=== PATIENT | female | born 1980 | race Caucasian/White ===

== ENCOUNTER 2020-07-01 10:29 | Emergency (ER) | payer SELFPAY ==
[2020-07-01 10:37] VITALS: BP 141/93; PULSE 78; RESP 18; TEMP 36.7; O2SAT 100; BMI 32.8
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
[2020-07-01 11:11] LABS: Amphetamines Screen Urine Negative (Negative); Barbiturates Screen Urine Negative (Negative); Benzodiazepines Screen Urine Negative (Negative); Cocaine Screen Urine Negative (Negative); Opiate Screen Urine Negative (Negative); PCP Screen Urine Negative (Negative); THC Screen Urine Negative (Negative)
[2020-07-01 11:18] VITALS: BP 138/89; PULSE 83; RESP 16; O2SAT 97
== END 2020-07-01 11:18 | disposition home or self-care (01) ==
PROVIDERS: Emergency Provider Emergency Medicine
DX: Z03.89 Encounter for observation for other suspected diseases and conditions ruled out (principal)
CPT/HCPCS: 12345; 80306; 99282

== ENCOUNTER 2021-01-15 08:19 | Outpatient (CLI) | payer SELFPAY ==
--- NOTE | 2021-01-15 08:30 | US_ITS ---
WS: [id number] Complete ABDOMINAL ULTRASOUND HISTORY: ABDOMINAL PAIN COMPARISON: None available. Liver: 17.2 cm in length. Slightly enlarged liver with coarse echotexture. No mass or bile duct dilat ation. Gallbladder: Prior cholecystectomy. Pancreas: Normal size and echogenicity. CBD: 0.6 cm. Right kidney: 10.8 cm x 6.8 cm x 5.5 cm. No mass, cortical thickening or hydronephrosis. Left kidney: 11.5 cm x 5.1 cm x 4.7 cm. No mass, cortical thickening or hydronephrosis. Spleen: Top normal size spleen. Abdominal aorta and IVC are within normal limits. No ascites. US/US abdomen complete* [id number] IMPRESSION: 1. Status post cholecystectomy. 2. Mild hepatic steatosis and hepatomegaly. 3. Normal size spleen.
== END 2021-01-15 08:20 | disposition home or self-care (01) ==
LOC: RAD 08:28
PROVIDERS: PCP Internal Medicine; Visit Provider Internal Medicine
DX: R10.9 Unspecified abdominal pain (principal); Z90.49 Acquired absence of other specified parts of digestive tract; K76.0 Fatty (change of) liver, not elsewhere classified; R16.0 Hepatomegaly, not elsewhere classified
CPT/HCPCS: 76700

== ENCOUNTER 2021-01-25 09:28 | Outpatient (CLI) | payer OTHER, SELFPAY ==
--- NOTE | 2021-01-25 09:34 | MM_ITS ---
WS: [id number] DIAGNOSTIC BILATERAL DIGITAL MAMMOGRAM WITH CAD RIGHT breast ultrasound, limited HISTORY: BREAST ABNORMAL FINDINGS, MULTIPLE BREAST NODULES COMPARISON: None available. TECHNIQUE: Bilateral craniocaudad, mediolateral oblique, and mediolateral views are submitted. Spot c ompression RIGHT CC. Computer aided detection utilized. Breast composition: The breasts are heterogeneously dense, which may obscure small masses. Asymmetry in the lateral RIGHT breast at a middle depth seen only on the CC projection persists on spot rha deandra. This area measures 15 mm. Ultrasound to follow. Otherwise no suspicious mass or nodule or disto rtion. RIGHT breast ultrasound. No abnormality noted within the RIGHT breast. RIGHT breast is imaged from 1-5 and 8-12. There are a f ew fibroglandular nodules and densities. No suspicious mass or shadowing. MM/[place] [id number] IMPRESSION: BI-RADS: 2-Benign FOLLOW UP: 1 Year Follow-up
== END 2021-01-25 09:29 | disposition home or self-care (01) ==
PROVIDERS: PCP Internal Medicine; Visit Provider Family Medicine
DX: N64.59 Other signs and symptoms in breast (principal); N63.0 Unspecified lump in unspecified breast
CPT/HCPCS: 76642; 77066

== ENCOUNTER 2021-03-08 13:10 | Outpatient (CLI) | payer SELFPAY ==
--- NOTE | 2021-03-08 13:15 | CT_ITS ---
WS: [id number] CT ABDOMEN PELVIS TECHNIQUE: Contrast-enhanced CT of the abdomen and pelvis with coronal and sagittal reformatted image s. CLINICAL INFORMATION: ABDOMINAL PAIN/CHRONIC GERD/CONSTIPATION COMPARISON: None. DLP: 1907.[address] scans at [facility] use at least one of these dose optimization techniques: automat ed exposure control; mA and/or kV adjustment per patient size (includes targeted exams where dose is matched to clinical indication); or iterative reconstruction. FINDINGS: Diffuse fatty infiltration of the liver. Normal portal vein and splenic vein. Prior cholecystectomy. Moderate esophageal hiatal hernia. Prior postoperative gastric sleeve. Lung bases are well aerated. N ormal spleen. Normal pancreas. Adrenal glands are normal. Normal renal parenchymal enhancement. No hy dronephrosis. Normal caliber abdominal aorta. Normal sigmoid colon. No evidence of small or large bowel obstruction. Normal caliber small bowel. No abdominal or pelvic lymphadenopathy. No inguinal lymphadenopathy. No free fluid in the abdomen or pe lvis. Prior ventral abdominal wall mesh hernia repair. No recurrent hernia. Normal lumbar spine. CT/CT abdomen pelvis w con* [id number] IMPRESSION: 1. Prior postoperative changes gastric sleeve procedure. 2. Moderate esophageal hiatal hernia. 3. Mild diffuse fatty infiltration of the liver. Prior cholecystectomy. 4. Prior ventral abdominal wall mesh hernia repair. No recurrent hernia. 5. No evidence of small or large bowel obstruction. 6. No other significant findings.
[2021-03-08 14:06] LABS: Basophils # 0.1 10^3/uL (0.0-0.1); Basophils % 1.1 %; Eosinophils # 0.3 10^3/uL (0.0-0.8); Hematocrit 43.7 % (37.0-47.0); Hemoglobin 14.4 g/dL (11.5-15.3); Lymphocytes # 2.3 10^3/uL (0.8-4.8); Lymphocytes % 27.2 %; Mean Corpuscular Volume 88.1 fL (81-99); Mean Platelet Volume 8.6 fL (7.4-10.4); Monocytes # 0.5 10^3/uL (0.2-0.9); Monocytes % 5.8 %; Neutrophils # 5.14 10^3/uL (1.8-7.7); Neutrophils % 61.7 %; Nucleated Red Blood Cells % 0 %; Platelet Count 321 10^3/cmm (130-400); Red Blood Count 4.96 10^6/uL (4.1-5.3); Red Cell Distribution Width 13.6 % (12.1-15.1); White Blood Count 8.3 10^3/uL (4.0-10.0)
[2021-03-08 14:28] LABS: Alanine Aminotransferase 9 U/L (0-33); Albumin Level 4.4 g/dL (3.5-5.2); Alkaline Phosphatase 78 IU/L (35-105); Aspartate Amino Transferase 12 U/L (0-32); Blood Urea Nitrogen 10 mg/dL (6-20); Calcium 9.3 mg/dL (8.5-10.5); Carbon Dioxide 25 mmol/L (22-29); Chloride 103 mmol/L (98-107); Globulin 2.8 g/dL (1.3-4.6); Glomerular Filtration Rate 135.3 mL/min (90-130); Glucose 89 mg/dL (65-115); Osmolality Calculated 283 mOsm/kg (285-295); Sodium 137 mmol/L (136-145); Total Bilirubin 0.2 mg/dL (0.15-1.2); Total Protein 7.2 g/dL (6.6-8.7)
[2021-03-08] MEDS: iohexol 300 mg/mL 50 mL Btl IV (15:27)
[2021-03-08] MEDS: iohexol 300 mg/mL 100 mL Btl IV (15:27)
== END 2021-03-08 13:11 | disposition home or self-care (01) ==
LOC: RAD 13:11
PROVIDERS: PCP Internal Medicine; Visit Provider Internal Medicine
DX: R10.9 Unspecified abdominal pain (principal); K21.9 Gastro-esophageal reflux disease without esophagitis; K59.00 Constipation, unspecified; K76.0 Fatty (change of) liver, not elsewhere classified; K44.9 Diaphragmatic hernia without obstruction or gangrene
CPT/HCPCS: 36415; 74177; 80053; 85025

== ENCOUNTER 2022-02-12 08:11 | Outpatient (CLI) | payer MEDICAID, SELFPAY ==
--- NOTE | 2022-02-12 08:23 | MM_ITS ---
WS: [id number] BILATERAL SCREENING 3D TOMOSYNTHESIS DIGITAL MAMMOGRAM WITH CAD HISTORY: SCREENING COMPARISON: 01/25/2021 and 05/31/2018 Bilateral CC and MLO views submitted. Computer aided detection analyzed. Breast composition: The breasts are heterogeneously dense, which may obscure small masses. No suspici ous masses, microcalcifications or architectural distortion. Bilateral asymmetries in the upper outer quadrant are stable. MM/[place] [id number] IMPRESSION: BI-RADS: 2-Benign FOLLOW UP: 1 Year Follow-up
== END 2022-02-12 08:12 | disposition home or self-care (01) ==
LOC: RADSHAW 08:14
PROVIDERS: PCP Internal Medicine; Visit Provider Family Medicine
DX: Z12.31 Encounter for screening mammogram for malignant neoplasm of breast (principal)
CPT/HCPCS: 77063; 77067

== ENCOUNTER → 2022-06-24 12:03 | Outpatient (BNVA) | payer MEDICAID, SELFPAY | PROVIDERS: PCP Specialist; Visit Provider Internal Medicine | DX: R00.1 Bradycardia, unspecified (principal); R07.9 Chest pain, unspecified; R06.02 Shortness of breath; I63.9 Cerebral infarction, unspecified | CPT/HCPCS: 93005; 93270; 99204 ==

== ENCOUNTER 2022-07-14 11:37 | Emergency (ER) | payer MEDICAID, SELFPAY ==
[2022-07-14 11:50] VITALS: BP 139/96; PULSE 81; RESP 18; TEMP 36.8; O2SAT 98; BMI 34.4
--- NOTE | 2022-07-14 12:13 | ED_ITS ---
HPI - Abdominal Pain General: Chief Complaint: Abdominal Pain Stated Complaint: Abd and chest pain Time Seen by Provider: 07/14/22 12:01 Source: patient Mode of arrival: ambulatory Limitations: no limitations History of Present Illness: Patient is a 42-year-old female presents to ED today with a complaint of diffuse abdominal pain. Patient tells me 3 days ago she was receiving an MRI on one of her shoulders for a possible rotator cuff injury and states during the imaging she began developing severe abdominal pain. She was told the desktop support technician went through previous scans and told her she had metal in her abdomen. Patient states previous abdominal surgeries include a cholecystectomy, hernia repair and revision, Meckel's diverticulum resection, and lysis of adhesions. She states over the past 72 hours abdominal pain has persisted. She saw her PCP Dr. Dumas today who recommended she come to the ED. Patient is not having any nausea or vomiting. She reports chronic constipation stating she only has 1-2 bowel movements a month. She is also reporting a 5 to 10 pound weight gain over the past few weeks. Denies SOB/chest pain/orthopnea/PND/LE swelling. MD elicited complaint: abdominal pain Onset (ago): day(s) Pain Consistency: constant Location: Diffuse Radiation: none Migration to: no migration Exacerbating factors: nothing Relieving factors: nothing Associated Symptoms: Reports constipation (chronic); Denies chills, dysuria, fever(s), hematochezia, hematuria, melena, nausea, syncope and vomiting Review of Systems Const: Reports: change in weight; Denies: fever(s), chills, body aches, fatigue or malaise Eyes: Denies: change in vision or blurry vision Card: Denies: chest pain, palpitations, irregular heart rhythm, edema, swelling of feet/ankles, lightheadedness, syncope, pre-syncope or dyspnea on exertion Resp: Denies: dyspnea GI: Reports: abdominal pain and constipation (chronic); Denies: nausea, vomiting, hematochezia or melena : Denies: flank pain, dysuria, oliguria or hematuria Musc: Denies: neck pain, back pain, extremity pain or joint pain Skin/Breast: Denies: rash Neuro: Denies: headache(s), numbness in extremities, weakness in extremities or sensory changes PFS ED PFSH: Medical History Anxiety Asthma CVA (cerebral vascular accident) Migraine Surgical History Status post cholecystectomy Status post gastric bypass for obesity Status post hernia repair Status post rotator cuff repair Family History Mother Headache Depression Father Stroke Hypertension Brother Depression Stroke Sister Depression Cancer Anxiety Social History Smoking and tobacco status: never smoked Alcohol intake: never Physical Exam Const: COMMON NORMALS: no acute distress, patient oriented x3, no limitations, alert and well nourished GENERAL APPEARANCE: cooperative NUTRITIONAL APPEARANCE: overweight ORIENTATION/CONSCIOUSNESS: Yes awake, Yes oriented to person, Yes oriented to place and Yes oriented to time HENMT: COMMON NORMALS: normocephalic and atraumatic HEAD & SCALP: normal to inspection, normocephalic and atraumatic Chest: COMMONS NORMALS: normal inspection of the chest and normal palpation of entire chest wall Resp: COMMON NORMALS: normal respiratory effort and clear to auscultation bilaterally AUSCULTATION: clear to auscultation bilaterally Cardio: COMMON NORMALS: regular rate and regular rhythm RATE: regular rate RHYTHM: regular rhythm GI: COMMON NORMALS: Normal to inspection, nondistended, normoactive bowel sounds present, Soft to palpation and No hepatosplenomegaly present INSPECTION: Yes normal to inspection AUSCULTATION: Yes Hypoactive bowel sounds present PALPATION: Yes Soft to palpation, Yes Tenderness to palpation present (GI) (diffusely), Yes Guarding due to palpation present (GI), No Rigid due to palpation and Yes No hepatosplenomegaly present : COMMON NORMALS: Yes no CVA tenderness BLADDER/KIDNEY EXAM: Yes no CVA tenderness Back/Pelvis: COMMON NORMALS: no CVA tenderness Extremity: COMMON NORMALS: normal to inspection, full ROM, capillary refill n ormal, no joint enlargement, no calf tenderness and no pedal edema GENERAL: Yes normal exam except as noted Neuro: OMER COMA SCALE: document GCS findings Omer coma scale eye opening: Spontaneous [place] coma scale verbal response: Orientated Omer coma scale motor response: Obey commands [place] coma scale total score: 15 COMMON NORMALS: patient oriented x3, moves all extremities, no focal motor deficits, no sensory deficits noted and gait normal SENSORIUM/ORIENTATION: Yes alert, Yes oriented to person, Yes oriented to place and Yes oriented to time Skin: COMMON NORMALS: no rashes or lesions noted GENERAL SKIN EXAM: no rashes or lesions noted Course Vital Signs: Vital signs: Vital Signs Temperature 98.2 F 07/14/22 11:50 Pulse Rate 81 07/14/22 11:50 Respiratory Rate 16 07/14/22 14:06 Blood Pressure 139/96 07/14/22 11:50 Pulse Oximetry 98 07/14/22 11:50 Oxygen Delivery Me thod 07/14/22 11:50 MDM - Abdominal Pain Medical Decision Making Patient's vital signs are normal. Her work-up today is completely unremarkable. CT scan showing no acute abnormalities. Patient states she does have a longstanding history of stomach and abdominal issues and states she has a GI team she will follow-up with for further evaluation. Return to ED precautions given. Lab Data : 07/14/22 12:10 07/14/22 12:10 Labs/Radiology: Radiology Impressions Abdomen/Pelvis CT 07/14/22 12:16 IMPRESSION: 1. No acute abdominal or pelvic abnormalities are identified. 2. Status post gastric sleeve and partial colon resection with anastomotic sutures. 3. No ascites. 4. Prior cholecystectomy and hysterectomy. 5. The appendix is not identified. Laboratory Results WBC 7.9 10^3/uL (4.0-10.0) 07/14/22 12:10 RBC 4.92 10^6/uL (4.1-5.3) 07/14/22 12:10 Hgb 14.3 g/dL (11.5-15.3) 07/14/22 12:10 Hct 43.4 % (37.0-47.0) 07/14/22 12:10 MCV 88.2 fl (81-99) 07/14/22 12:10 MCH 29.1 pg (28.0-34.0) 07/14/22 12:10 MCHC 32.9 g/dL (30.0-36.0) 07/14/22 12:10 RDW 13.5 % (12.1-15.1) 07/14/22 12:10 Plt Count 326 10^3/cmm (130-400) 07/14/22 12:10 MPV 8.5 fL (7.4-10.4) 07/14/22 12:10 Neut % (Auto) 54.9 % 07/14/22 12:10 Lymph % (Auto) 32.5 % 07/14/22 12:10 [place] % (Auto) 6.5 % 07/14/22 12:10 Eos % (Auto) 4.7 % 07/14/22 12:10 Baso % (Auto) 1.0 % 07/14/22 12:10 Neut # (Auto) 4.31 10^3/uL (1.8-7.7) 07/14/22 12:10 Lymph # (Auto) 2.6 10^3/uL (0.8-4.8) 07/14/22 12:10 [place]ink[place] # (Auto) 0.5 10^3/uL (0.2-0.9) 07/14/22 12:10 Eos # (Auto) 0.4 10^3/uL (0.0-0.8) 07/14/22 12:10 Baso # (Auto) 0.1 10^3/uL (0.0-0.1) 07/14/22 12:10 Nucleated RBC % (auto) 0 % 07/14/22 12:10 Nucleated RBCs # 0.0 /100WBC 07/14/22 12:10 Sodium 140 mmol/L (136-145) 07/14/22 12:10 Potassium 4.2 mmol/L (3.5-5.1) 07/14/22 12:10 Chloride 103 mmol/L (98-107) 07/14/22 12:10 Carbon Dioxide 27 mmol/L (22-29) 07/14/22 12:10 Anion Gap 14.2 (5-19) 07/14/22 12:10 BUN 10 mg/dL (6-20) 07/14/22 12:10 Creatinine 0.6 mg/dL (0.5-0.9) 07/14/22 12:10 GFR Calculation 108.6 mL/min (90-130) 07/14/22 12:10 Glucose 85 mg/dL (65-115) 07/14/22 12:10 Calculated Osmolality 288 mOsm/kg (285-295) 07/14/22 12:10 Lactic Acid 1.3 mmol/L (0.5-2.2) 07/14/22 12:10 Calcium 9.1 mg/dL (8.5-10.5) 07/14/22 12:10 Total Bilirubin 0.2 mg/dL (0.15-1.2) 07/14/22 12:10 AST 20 U/L (0-32) 07/14/22 12:10 ALT 16 U/L (0-33) 07/14/22 12:10 Alkaline Phosphatase 95 U/L (35-105) 07/14/22 12:10 NT-Pro-B Natriuret Pep 44 pg/mL (0-125) 07/14/22 12:10 Total Protein 7.2 g/dL (6.6-8.7) 07/14/22 12:10 Albumin 4.3 g/dL (3.5-5.2) 07/14/22 12:10 Globulin 2.9 g/dL (1.3-4.6) 07/14/22 12:10 Lipase 40 U/L (13-60) 07/14/22 12:10 HCG, Qual Negative (Negative) 07/14/22 12:10 Urine Color Yellow (Yellow) 07/14/22 12:10 Urine Appearance Clear (CLEAR) 07/14/22 12:10 Urine pH 7 (5-7) 07/14/22 12:10 Ur Specific [place] 1.010 (1.005-1.030) 07/14/22 12:10 Urine Protein Neg (Negative) 07/14/22 12:10 Urine Glucose (UA) Norm (Normal) 07/14/22 12:10 Urine Ketones Negative (Negative) 07/14/22 12:10 Urine Blood Neg (Negative) 07/14/22 12:10 Urine Nitrate Negative (Negative) 07/14/22 12:10 Urine Bilirubin Neg (Negative) 07/14/22 12:10 Urine Urobilinogen 1 mg/dL (Negative) H 07/14/22 12:10 Ur Leukocyte Esterase Negative (Negative) 07/14/22 12:10 Discharge Plan Discharge Patient Disposition: Home Clinical Impression: Abdominal pain of unknown cause Condition: Stable Prescriptions: No Action midodrine 5 mg tablet 5 mg PO TID Rx Instructions: do not give last dose of day after 6PM or within 4 hrs of bedtime ondansetron 4 mg tablet,disintegrating 4 mg PO Q8H PRN (Reason: Nausea And Vomiting) albuterol sulfate 90 mcg/actuation HFA aerosol inhaler 1 puff inhalation Q4H PRN (Reason: Shortness Of Breath) omeprazole 40 mg capsule,delayed release(DR/EC) 40 mg PO BID multivitamin Tablet 1 tab PO DAILY Advair Diskus 250-50 mcg/dose blister with device 1 inh INHALATION BID fluconazole 150 mg tablet See Rx Instructions .ROUTE .COMPLEX Rx Instructions: 150mg po every 7 days for 14 days then 150mg every 7 days for 6 months on EpiPen 2-Alexy 0.3 mg/0.3 mL Auto-Injector 0.3 mg IM Q4H PRN (Reason: Allergic Reaction) venlafaxine 225 mg tablet extended release 24hr 225 mg PO QAM Discharge Orders: Discharge ED (Routine); Ordered 07/14/22 Ordered By: Eileen Rubio Referrals: Tato Cherry MD [Primary Care Provider] - Patient Instructions: Abdominal Pain (ED) Coding Level of Care Code ED Lamination Machine Operator for Chg Fwd Exam Comprehensive
--- NOTE | 2022-07-14 12:16 | CT_ITS ---
WS: [id number] CT ABDOMEN AND PELVIS NONCONTRAST HISTORY: Diffuse abdominal pain. TECHNIQUE: Imaging performed through the abdomen and pelvis. Coronal and sagittal reformats are submi tted. All CT scans at [facility] use at least one of these dose optimization techniques: auto mated exposure control; mA and/or kV adjustment per patient size (includes targeted exams where dose is matched to clinical indication); or iterative reconstruction. DLP: 1011.19 mGy.cm COMPARISON: 03/08/2021 Lower thorax: Lung bases are clear. Heart size is normal. Small hiatal hernia. Liver: Normal size liver. No mass or bile duct dilatation. Hepatic steatosis adjacent to the gallblad michael fossa. Gallbladder: Prior cholecystectomy. Pancreas: Normal size and attenuation. Normal pancreatic duct. No pancreatitis or mass. Spleen: Normal. Adrenal glands: Normal. No mass. Right kidney: Normal size kidney with no mass or hydronephrosis. Left kidney: Normal size kidney with no mass or hydronephrosis. Aorta: Normal abdominal aorta, no aneurysm or atherosclerosis. No free fluid, intraperitoneal air or significant lymphadenopathy. GI tract: Stomach is slightly distended with oral contrast. Prior gastric sleeve procedure. No small bowel obstruction. Mildly prominent fluid distended small bowel loops in the pelvis. No obstructive p attern. The appendix is not identified. No colon obstruction. Anastomotic sutures are noted in the ce ntral abdomen. Abdominal wall: Postoperative changes along the anterior abdominal wall. No change in the position of the surgical clips within the anterior abdominal wall from prior hernia repair. Pelvis: Prior hysterectomy. Normal size ovaries. Osseous structures: Unremarkable. CT/CT abdomen pelvis wo con [id number] IMPRESSION: 1. No acute abdominal or pelvic abnormalities are identified. 2. Status post gastric sleeve and partial colon resection with anastomotic sut ures. 3. No ascites. 4. Prior cholecystectomy and hysterectomy. 5. The appendix is not identified.
[2022-07-14 12:29] LABS: Basophils # 0.1 10^3/uL (0.0-0.1); Eosinophils # 0.4 10^3/uL (0.0-0.8); Eosinophils % 4.7 %; Hematocrit 43.4 % (37.0-47.0); Hemoglobin 14.3 g/dL (11.5-15.3); Lymphocytes # 2.6 10^3/uL (0.8-4.8); Lymphocytes % 32.5 %; Mean Corpuscular HGB Conc 32.9 g/dL (30.0-36.0); Mean Corpuscular Hemoglobin 29.1 pg (28.0-34.0); Mean Corpuscular Volume 88.2 fl (81-99); Mean Platelet Volume 8.5 fL (7.4-10.4); Monocytes # 0.5 10^3/uL (0.2-0.9); Monocytes % 6.5 %; Neutrophils # 4.31 10^3/uL (1.8-7.7); Neutrophils % 54.9 %; Nucleated Red Blood Cells % 0 %; Platelet Count 326 10^3/cmm (130-400); Red Blood Count 4.92 10^6/uL (4.1-5.3); Red Cell Distribution Width 13.5 % (12.1-15.1); White Blood Count 7.9 10^3/uL (4.0-10.0)
[2022-07-14 12:41] LABS: HCG, Serum Qual Negative (Negative)
[2022-07-14 12:49] LABS: Add Urine Microscopic? NO; Charge for UA Resulting for Rev
[2022-07-14 12:52] LABS: Lactic Sepsis W/Reflex 1.3 mmol/L (0.5-2.2)
[2022-07-14 13:02] LABS: Alanine Aminotransferase 16 U/L (0-33); Albumin Level 4.3 g/dL (3.5-5.2); Alkaline Phosphatase 95 U/L (35-105); Aspartate Amino Transferase 20 U/L (0-32); Blood Urea Nitrogen 10 mg/dL (6-20); Calcium 9.1 mg/dL (8.5-10.5); Carbon Dioxide 27 mmol/L (22-29); Chloride 103 mmol/L (98-107); Globulin 2.9 g/dL (1.3-4.6); Glomerular Filtration Rate 108.6 mL/min (90-130); Glucose 85 mg/dL (65-115); Lipase 40 U/L (13-60); NT Pro B Type Natriuretic Pept 44 pg/mL (0-125); Osmolality Calculated 288 mOsm/kg (285-295); Sodium 140 mmol/L (136-145); Total Bilirubin 0.2 mg/dL (0.15-1.2); Total Protein 7.2 g/dL (6.6-8.7)
[2022-07-14 13:05] LABS: Anion Gap 14.2 (5-19); Potassium 4.2 mmol/L (3.5-5.1)
[2022-07-14 13:07] LABS: Bilirubin Urine Neg (Negative); Blood Urine Neg (Negative); Glucose Urine UA Norm (Normal); Ketones Urine Negative (Negative); Leukocyte Esterase Urine Negative (Negative); Nitrate Urine Negative (Negative); Protein Urine Neg (Negative); Urine Appearance Clear (CLEAR); Urine Color Yellow (Yellow); Urobilinogen Urine 1 mg/dL (Negative); pH Urine 7 (5-7)
--- NOTE | 2022-07-14 13:13 | PC.PHAR ---
Addendum entered by Dori Downey 07/14/22 13:19: pt states she is not taking prozac 20mg daily filled 07/04/22 and not taking lipitor 10mg filled 06/26/22 30d/s states she had a reaction to the lipitor Original Note: pt states she takes care of her own medications-pt states she uses an advair diskus 250-50 filled on 06/18/22 another rx filled on 06/25/22 for 100-50 pt states uses the 250-50-pt states she is still taking midodrine 5mg tid ext med history shows last filled 05/09/22 30d/s pt states has had filled since then and still taking-notes are made in the pharmacy comments
[2022-07-14 13:16] VITALS: RESP 14
[2022-07-14] MEDS: morphine 4 mg/mL SDV 1 mL IVP (13:16)
[2022-07-14] MEDS: ondansetron 2 mg/ML SDV 2 mL 4 MG IVP (13:16)
[2022-07-14 14:06] VITALS: RESP 16
[2022-07-14] MEDS: fentaNYL 50 mcg/mL INJ 2mL IVP (14:06)
== END 2022-07-14 15:14 | disposition home or self-care (01) ==
PROVIDERS: Emergency Provider Physician Assistant; PCP Specialist
DX: R10.9 Unspecified abdominal pain (principal); Z86.73 Personal history of transient ischemic attack (TIA), and cerebral infarction without residual deficits
CPT/HCPCS: 74176; 80053; 81003; 83605; 83690; 83880; 84703; 85025; 96374; 96375; 99285; J2270; J2405; J3010

== ENCOUNTER 2022-08-20 11:53 | Outpatient (CLI) | payer MEDICAID, SELFPAY ==
--- NOTE | 2022-08-20 | ECG_ITS ---
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 Interpretive Statements NAME OF STUDY: TREADMILL STRESS TEST INDICATION: [Chest Pain, ] EXERCISE DATA: The patient was exercised by Gio protocol. Baseline heart rate was 88 beats per minute. Baseline blood pressure was 111/86 millimeters of mercury. Target heart rate was 150 beats per minute. Maximum heart rate achieved was 162, which was 108 % of the target heart rate. Maximum blood pressure was 170/91 millimeters of mercury. Total exercise time was 9 minutes. Maximum METs achieved was 10.2. The reason for ending the test was completion of the protocol. The patient complained of shortness of breath during the stress test, which then resolved at the end of the test. ELECTROCARDIOGRAM: BASELINE: Showed sinus rhythm, normal axis, no significant ST-T changes at the baseline noted. EXERCISE: At the peak exercise level,No significant ST-T changes suggestive of ischemia noted. Had PVCs noted RECOVERY: During the recovery period, heart rate dropped appropriately. No significant ST-T changes in the recovery suggestive of ischemia noted. CONCLUSION: 1. Exercise capacity good. 2. Heart rate response was appropriate. 3. Blood pressure response was appropriate. 4. Symptoms not suggestive of ischemia. 5. Stress test did not show evidence of ischemia Electronically Signed On 08-25-2022 10:09:42 CDT by Jeronimo Cortez M.D. [id number]
[2022-08-20 12:01] VITALS: BMI 33.2
[2022-08-20 12:36] VITALS: BP 126/95; PULSE 97
== END 2022-08-20 11:54 | disposition home or self-care (01) ==
LOC: CDL 11:58
PROVIDERS: PCP Specialist; Visit Provider Internal Medicine
DX: R07.9 Chest pain, unspecified (principal)
CPT/HCPCS: 93017

== ENCOUNTER 2022-08-26 13:46 | Outpatient (CLI) | payer MEDICAID, SELFPAY ==
--- NOTE | 2022-08-26 13:30 | USCV_ITS ---
Eliana Julio Age: 42 Gender: F : 1980 Exam Date: 08/26/2022 14:25 Ordering Phys: Jeronimo Cortez M.D ([email or web address]) Technologist: Exam Location: [facility] – [place] Indication: chest pain murmur BP: 125 / 90 HR: 60 Rhythm: Sinus Technical Quality: Adequate MEASUREMENTS (Male / Female) Normal Values 2D ECHO LV Diastolic Diameter PLAX 3.2 cm 4.2 - 5.9 / 3.9 - 5.3 cm LV Systolic Diameter PLAX 2.1 cm IVS Diastolic Thickness 1.2 cm 0.6 - 1.0 / 0.6 - 0.9 cm IVS Systolic Thickness 1.5 cm LVPW Diastolic Thickness 1.3 cm 0.6 - 1.0 / 0.6 - 0.9 cm LVPW Systolic Thickness 1.3 cm LVOT Diameter 2.3 cm LV Ejection Fraction 2D Teich 63.5 % LV Ejection Fraction MOD 2C 78.5 % LV Ejection Fraction 2C AL 78.7 % LA Diameter 3.8 cm Aorta at Sinotubular Diameter 3.1 cm M-MODE Aortic Annulus Diameter 3.7 cm LA Ao Ratio MM 1.0 MV E Point Septal Separation 1.9 cm DOPPLER AV Peak Velocity 113.0 cm/s LVOT Peak Velocity 91.0 cm/s AV Area Cont Eq vti 3.8 cm squared AV Area Cont Eq pk 3.2 cm squared MV Area PHT 5.0 cm squared Mitral E to A Ratio 1.5 MV E' Velocity 37.0 cm/s Mitral E to MV E' Ratio 6.2 Mitral E to LV E' Lateral Ratio 6.6 Mitral E to LV E' Septal Ratio 5.9 TR Peak Velocity 113.8 cm/s TR Peak Gradient 5.2 mmHg TV Peak E Velocity 57.0 cm/s Right Atrial Pressure 3.0 mmHg Pulmonary Artery Systolic Pressu 8.2 mmHg PV Peak Velocity 97.0 cm/s FINDINGS Left Ventricle Left ventricle is normal in size. LV systolic function is normal with EF of 55-60%. No regional wall motion abnormalities are seen. Diastolic function is normal Right Ventricle Normal in size and function Right Atrium Normal in size Left Atrium Normal in size Mitral Valve Structurally normal mitral valve. Trace mitral regurgitation Aortic Valve Structurally normal aortic valve. No significant stenosis or regurgitation. Tricuspid Valve Trace tricuspid regurgitation. Insufficient TR jet to calculate RVSP Pulmonic Valve Not well visualized Pericardium Normal Aorta Normal in size IVC CONCLUSIONS LV systolic function is normal with EF of 55-60% Diastolic function is normal Trace mitral regurgitation Trace tricuspid regurgitation No comparison studies are available Jeronimo Cortez MD (Electronically Signed) Final Date: 27 August 2022 08:52 S
== END 2022-08-26 13:47 | disposition home or self-care (01) ==
LOC: RAD 13:47
PROVIDERS: PCP Family Medicine; Visit Provider Internal Medicine
DX: R06.02 Shortness of breath (principal); R07.9 Chest pain, unspecified; R01.1 Cardiac murmur, unspecified; I08.1 Rheumatic disorders of both mitral and tricuspid valves
CPT/HCPCS: 93306

== ENCOUNTER 2022-09-04 09:28 | Outpatient (CLI) | payer MEDICAID, SELFPAY ==
--- NOTE | 2022-09-04 10:00 | FL_ITS ---
WS: [id number] Small bowel follow-through, 09/04/2022 Clinical Data: ABDOMINAL PAIN Comparison: None. Fluoroscopy time: 0min [id number] # of spot films: 3 Findings: The preliminary film shows clips in the upper and lower abdomen. There is no bowel dilatation. No a bnormal masses are seen. The patient ingested the barium. There was a small hiatal hernia. The patien t's stomach was small, consistent with gastric sleeve surgery. The clips in the right upper quadrant are from a cholecystectomy. There are clips adjacent to the stomach. The barium passed normally throu gh the duodenal bulb into the distal duodenum. Then 15 minutes postingestion the jejunum filled. At 4 5 minutes the ileum began to fill. At 2 hours and 30 minutes the barium spilled into the cecum. The c ecum was mobile and located in the central portion of the abdomen. The ileocecal valve was normal. Sp ot imaging revealed no obstruction or narrowing of the distal ileum or at the ileocecal valve. FL/FL small bowel series* [id number] Impression: Normal small bowel follow-through.
== END 2022-09-04 09:29 | disposition home or self-care (01) ==
LOC: RAD 09:30
PROVIDERS: PCP Family Medicine; Visit Provider Surgery
DX: R10.9 Unspecified abdominal pain (principal)
CPT/HCPCS: 74250

== ENCOUNTER 2022-11-25 09:49 | Emergency (ER) | payer MEDICAID, SELFPAY ==
[2022-11-25 09:50] VITALS: BP 170/116; PULSE 108; RESP 18; TEMP 37; O2SAT 98; BMI 31.0
[2022-11-25 09:54] VITALS: BP 141/112; PULSE 114; RESP 18; TEMP 37; O2SAT 99; BMI 31.0
--- NOTE | 2022-11-25 10:14 | XRR_ITS ---
PROCEDURE INFORMATION: Exam: XR Chest Exam date and time: 11/25/2022 10:33 AM Age: 42 years old Clinical indication: Cough and dyspnea; Prior surgery; Surgery type: Ovarian, HX of ovarian cancer; Additional info: Dyspnea/cough TECHNIQUE: Imaging protocol: Radiologic exam of the chest. Views: 1 view. COMPARISON: CR FL small bowel series* [id number] 09/04/2022 10:07 AM FINDINGS: Lungs: Unremarkable. No consolidation. Pleural spaces: Unremarkable. No pleural effusion. No pneumothorax. Heart/Mediastinum: Unremarkable. No cardiomegaly. Bones/joints: There is mild scoliosis midthoracic spine convex to the patient's right otherwise osseous structures are unremarkable for age. XR/XR chest 1V portable [id number] IMPRESSION: Negative for cardiopulmonary disease.
--- NOTE | 2022-11-25 10:16 | ED_ITS ---
HPI - Abdominal Pain General: Chief Complaint: Abdominal Pain Stated Complaint: ABD Pain Time Seen by Provider: 11/25/22 09:52 Source: patient Mode of arrival: EMS History of Present Illness: 42-year-old female presents emergency room complaining of right upper quadrant abdominal pain. And right side of her head she had some dental extractions done last week she is on antibiotics for them at this time she is having some nausea and vomiting this morning she states she felt a popping sensation in her abdomen on the right side when she rolled over this morning. She also reporting a lot of sinus congestion and pain on the rig ht side. No fever sweats or chills. No vomiting or diarrhea. She was seen yesterday at the [facility] and started on gabapentin Augmentin and given hydrocodone. She previously has had a gastric bypass. MD elicited complaint: abdominal pain Pertinent past history: other (Gastric bypass hysterectomy cholecystectomy) Onset (ago): day(s) Pain Consistency: constant Location: RUQ and Other (Right mandible) Quality: aching Exacerbating factors: nothing Relieving factors: nothing Associated Symptoms: Reports nausea; Denies anorexia, belching, chills, diarrhea, dysuria, fever(s) and vomiting Review of Systems Const: Denies: fever(s), chills, body aches, change in appetite, fatigue or malaise ENMT: Reports: mouth pain; Denies: throat pain, ear or mastoid pain, nasal discharge or nasal congestion Card: Denies: chest pain, palpitations, irregular heart rhythm, edema, dyspnea on exertion or orthopnea Resp: Denies: dyspnea, productive cough or non-productive cough GI: Reports: abdominal pain and nausea; Denies: vomiting, diarrhea or belching : Denies: flank pain, difficulty voiding, dysuria, urinary frequency or urinary urgency Skin/Breast: Denies: rash or pruritus PFSH ED PFSH: Medical History Anxiety Asthma CVA (cerebral vascular accident) Migraine Surgical History Status post cholecystectomy Status post gastric bypass for obesity Status post hernia repair Status post rotator cuff repair Family History Mother Headache Depression Father Stroke Hypertension Brother Depression Stroke Sister Depression Cancer Anxiety Social History Smoking and tobacco status: never smoked Alcohol intake: never Physical Exam Const: GENERAL APPEARANCE: cooperative ORIENTATION/CONSCIOUSNESS: Yes awake, Yes oriented to person, Yes oriented to place and Yes oriented to time HENMT: COMMON NORMALS: normocephalic, atraumatic and hearing grossly normal bilaterally HEAD & SCALP: normocephalic and atraumatic Resp: COMMON NORMALS: normal respiratory effort, No retractions, No use of accessory muscles and clear to auscultation bilaterally AUSCULTATION: clear to auscultation bilaterally Cardio: COMMON NORMALS: regular rate, regular rhythm and No murmurs present (Cardio) RATE: regular rate RHYTHM: regular rhythm GI: COMMON NORMALS: Soft to palpation and No hepatosplenomegaly present AUSCULTATION: Yes normoactive bowel sounds PALPATION: Yes Soft to palpation, No Tenderness to palpation present (GI), No Guarding due to palpation present (GI) and Yes No hepatosplenomegaly present Extremity: COMMON NORMALS: normal to inspection, capillary refill normal, no clubbing, cyanosis or edema, no calf tenderness and no pedal edema Neuro: SENSORIUM/ORIENTATION: Yes oriented to person, Yes oriented to place and Yes oriented to time Skin: COMMON NORMALS: no rashes or lesions noted GENERAL SKIN EXAM: no rashes or lesions noted Course Vital Signs: Vital signs: Vital Signs Temperature 98.6 F 11/25/22 09:54 Pulse Rate 70 11/25/22 11:18 Respiratory Rate 16 11/25/22 11:18 Blood Pressure 148/104 11/25/22 11:18 Pulse Oximetry 99 11/25/22 11:18 Oxygen Delivery Me thod 11/25/22 11:18 MDM - Abdominal Pain Medical Decision Making Benign abdominal exam. Think her alk phos and white count are elevated slightly because of the recent dental extraction. She does not have an acute abdomen on exam. We will discharge patient home on the previously prescribed antibiotics and pain medication she was given. Anion gap elevated patient given fluids. Blood pressure elevated we will have her monitor blood pressure at home use amlodipine 2.5 mg if blood pressure greater than 160 systolic. Have her follow-up with her primary care doctor for recheck of blood pressure within the next week. Medical Records I reviewed the patient's medical records. Lab Data I reviewed the patient's lab results. 11/25/22 09:58 11/25/22 09:58 Labs/Radiology: Radiology Impressions Chest X-Ray 11/25/22 10:14 IMPRESSION: Negative for cardiopulmonary disease. Laboratory Results WBC 11.7 10^3/uL (4.0-10.0) H 11/25/22 09:58 RBC 5.22 10^6/uL (4.1-5.3) 11/25/22 09:58 Hgb 14.7 g/dL (11.5-15.3) 11/25/22 09:58 Hct 45.2 % (37.0-47.0) 11/25/22 09:58 MCV 86.6 fl (81-99) 11/25/22 09:58 MCH 28.2 pg (28.0-34.0) 11/25/22 09:58 MCHC 32.5 g/dL (30.0-36.0) 11/25/22 09:58 RDW 14.3 % (12.1-15.1) 11/25/22 09:58 Plt Count 535 10^3/cmm (130-400) H 11/25/22 09:58 MPV 8.9 fL (7.4-10.4) 11/25/22 09:58 Neut % (Auto) 55.6 % 11/25/22 09:58 Lymph % (Auto) 35.9 % 11/25/22 09:58 [place] % (Auto) 5.2 % 11/25/22 09:58 Eos % (Auto) 2.2 % 11/25/22 09:58 Baso % (Auto) 0.7 % 11/25/22 09:58 Neut # (Auto) 6.52 10^3/uL (1.8-7.7) 11/25/22 09:58 Lymph # (Auto) 4.2 10^3/uL (0.8-4.8) 11/25/22 09:58 [place] # (Auto) 0.6 10^3/uL (0.2-0.9) 11/25/22 09:58 Eos # (Auto) 0.3 10^3/uL (0.0-0.8) 11/25/22 09:58 Baso # (Auto) 0.1 10^3/uL (0.0-0.1) 11/25/22 09:58 Nucleated RBC % (auto) 0 % 11/25/22 09:58 Nucleated RBCs # 0.0 /100WBC 11/25/22 09:58 Sodium 142 mmol/L (136-145) 11/25/22 09:58 Potassium 3.7 mmol/L (3.5-5.1) 11/25/22 09:58 Chloride 101 mmol/L (98-107) 11/25/22 09:58 Carbon Dioxide 20 mmol/L (22-29) L 11/25/22 09:58 Anion Gap 24.7 (5-19) H 11/25/22 09:58 BUN 7 mg/dL (6-20) 11/25/22 09:58 Creatinine 0.4 mg/dL (0.5-0.9) L 11/25/22 09:58 GFR Calculation 173.4 mL/min (90-130) H 11/25/22 09:58 Glucose 124 mg/dL (65-115) H 11/25/22 09:58 Calculated Osmolality 293 mOsm/kg (285-295) 11/25/22 09:58 Calcium 9.7 mg/dL (8.5-10.5) 11/25/22 09:58 Total Bilirubin 0.4 mg/dL (0.15-1.2) 11/25/22 09:58 AST 23 U/L (0-32) 11/25/22 09:58 ALT 18 U/L (0-33) 11/25/22 09:58 Alkaline Phosphatase 122 U/L (35-105) H 11/25/22 09:58 Total Protein 8.2 g/dL (6.6-8.7) 11/25/22 09:58 Albumin 4.7 g/dL (3.5-5.2) 11/25/22 09:58 Globulin 3.5 g/dL (1.3-4.6) 11/25/22 09:58 Urine Color Yellow (Yellow) 11/25/22 10:28 Urine Appearance Hazy (CLEAR) A 11/25/22 10:28 Urine pH 5 (5-7) 11/25/22 10:28 Ur Specific [place] 1.020 (1.005-1.030) 11/25/22 10:28 Urine Protein Trace (Negative) 11/25/22 10:28 Urine Glucose (UA) Norm (Normal) 11/25/22 10:28 Urine Ketones 2+ (Negative) H 11/25/22 10:28 Urine Blood Neg (Negative) 11/25/22 10:28 Urine Nitrate Negative (Negative) 11/25/22 10:28 Urine Bilirubin 1+ (Negative) H 11/25/22 10:28 Urine Urobilinogen 4 mg/dL (Negative) H 11/25/22 10:28 Ur Leukocyte Esterase Trace (Negative) H 11/25/22 10:28 Urine RBC 0-4 /hpf (0-2) H 11/25/22 10: Urine WBC 0-4 /hpf (0-5) H 11/25/22 10:28 Ur Squamous Epith Cells 15-25 /hpf (0-5) H 11/25/22 10: Amorphous Sediment Not Reportable 11/25/22 10:28 Urine Bacteria 1+ /hpf (NONE) H 11/25/22 10:28 Urine Mucus 2+ /hpf 11/25/22 10:28 Discharge Plan Discharge Patient Disposition: Home Clinical Impression: S/P tooth extraction, Elevated blood pressure reading Condition: Stable Prescriptions: New amlodipine 2.5 mg tablet 2.5 mg PO DAILY PRN (Reason: Elevated blood pressure) Qty: 14 0RF Rx Instructions: Take if systolic blood pressure exceeds 160 ondansetron HCl 4 mg tablet 4 mg PO Q6H PRN (Reason: nausea and vomiting) Qty: 20 0RF No Action ondansetron 4 mg tablet,disintegrating 4 mg PO Q8H PRN (Reason: Nausea And Vomiting) albuterol sulfate 90 mcg/actuation HFA aerosol inhaler 1 puff inhalation Q4H PRN (Reason: Shortness Of Breath) omeprazole 40 mg capsule,delayed release(DR/EC) 40 mg PO BID diphenhydramine HCl [Benadryl] 25 mg capsule 50 mg PO BID PRN (Reason: Allergic Symptoms) multivitamin Tablet 1 tab PO DAILY fluticasone propion-salmeterol [Advair Diskus] 250-50 mcg/dose blister with device 1 inh INHALATION BID fluconazole 150 mg tablet 150 mg PO Q7D Rx Instructions: on epinephrine [EpiPen 2-Alexy] 0.3 mg/0.3 mL Auto-Injector 0.3 mg IM Q4H PRN (Reason: Allergic Reaction) venlafaxine 225 mg tablet extended release 24hr 225 mg PO QAM buspirone 5 mg tablet 5 mg PO BID gabapentin 250 mg/5 mL solution 250 mg PO Q8H Rx Instructions: for 3 days (rx filled 11/24/22) amoxicillin-pot clavulanate 400-57 mg/5 mL suspension for reconstitution 10.9 ml PO Q12H Rx Instructions: for 7 days(rx filled 11/24/22) lovastatin 20 mg tablet 20 mg PO QPM hydrocodone-acetaminophen 7.5-325 mg/15 mL solution 10 ml PO Q6H MDD 40ml PRN (Reason: Pain) Rx Instructions: rx filled 11/24/22 2d/s Tylenol Sinus Severe 5-325-200 mg Tablet 2 tab PO Q4H PRN (Reason: Sinus Symptoms) Vitamin D3 125 mcg (5,000 unit) Tablet 125 mcg PO DAILY Dulera 200-5 mcg/actuation Hfa Aerosol Inhaler 2 puff INHALATION BID Linzess 290 mcg capsule 290 mcg PO QAM Discharge Orders: Discharge ED (Routine); Ordered 11/25/22 Ordered By: Tj Lee Referrals: Marcos Dumas MD [Primary Care Provider] - Discharge Diet: Clear Liquid Discharge Activity: Increase activity as tolerated Patient Instructions: Opioid Safety, Pain Management Activity Restrictions/Additional Instructions: You were seen today for abdominal pain and facial pain. Your blood pressure was also elevated. Your abdominal exam did not show anything acute your laboratory studies were unremarkable. Recommend clear liquid diet for the next 24 to 48 hours you can use ondansetron as needed for nausea and vomiting. Would recommend to continue the oral antibiotic and pain medication you are previously prescribed. Additionally monitor blood pressure if systolic pressure (top number) greater than 160 take the amlodipine once daily. Recheck with your blood pressure at your primary care doctor's office within the next 7 to 10 days. 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
[2022-11-25 10:28] LABS: Basophils # 0.1 10^3/uL (0.0-0.1); Basophils % 0.7 %; Eosinophils # 0.3 10^3/uL (0.0-0.8); Eosinophils % 2.2 %; Hematocrit 45.2 % (37.0-47.0); Hemoglobin 14.7 g/dL (11.5-15.3); Lymphocytes # 4.2 10^3/uL (0.8-4.8); Lymphocytes % 35.9 %; Mean Corpuscular HGB Conc 32.5 g/dL (30.0-36.0); Mean Corpuscular Hemoglobin 28.2 pg (28.0-34.0); Mean Corpuscular Volume 86.6 fl (81-99); Mean Platelet Volume 8.9 fL (7.4-10.4); Monocytes # 0.6 10^3/uL (0.2-0.9); Monocytes % 5.2 %; Neutrophils # 6.52 10^3/uL (1.8-7.7); Neutrophils % 55.6 %; Nucleated Red Blood Cells % 0 %; Platelet Count 535 10^3/cmm (130-400); Red Blood Count 5.22 10^6/uL (4.1-5.3); Red Cell Distribution Width 14.3 % (12.1-15.1); White Blood Count 11.7 10^3/uL (4.0-10.0)
[2022-11-25 10:45] LABS: Alanine Aminotransferase 18 U/L (0-33); Albumin Level 4.7 g/dL (3.5-5.2); Alkaline Phosphatase 122 U/L (35-105); Anion Gap 24.7 (5-19); Aspartate Amino Transferase 23 U/L (0-32); Blood Urea Nitrogen 7 mg/dL (6-20); Calcium 9.7 mg/dL (8.5-10.5); Carbon Dioxide 20 mmol/L (22-29); Chloride 101 mmol/L (98-107); Globulin 3.5 g/dL (1.3-4.6); Glomerular Filtration Rate 173.4 mL/min (90-130); Glucose 124 mg/dL (65-115); Osmolality Calculated 293 mOsm/kg (285-295); Potassium 3.7 mmol/L (3.5-5.1); Sodium 142 mmol/L (136-145); Total Bilirubin 0.4 mg/dL (0.15-1.2); Total Protein 8.2 g/dL (6.6-8.7)
[2022-11-25] MEDS: ondansetron 2 mg/ML SDV 2 mL 4 MG IVP (10:53)
[2022-11-25 10:58] LABS: Add Urine Microscopic? YES; Bilirubin Urine 1+ (Negative); Blood Urine Neg (Negative); Glucose Urine UA Norm (Normal); Ketones Urine 2+ (Negative); Leukocyte Esterase Urine Trace (Negative); Nitrate Urine Negative (Negative); Protein Urine Trace (Negative); Urine Appearance Hazy (CLEAR); Urine Color Yellow (Yellow); Urobilinogen Urine 4 mg/dL (Negative); pH Urine 5 (5-7)
[2022-11-25 10:59] LABS: Bacteria Urine 1+ /hpf; Mucus Urine 2+ /hpf; RBC Urine 0-4 /hpf (0-2); Squamous Epithelial Cell Urine 15-25 /hpf (0-5); WBC Urine 0-4 /hpf (0-5)
[2022-11-25 11:00] LABS: Add Urine Culture? No
[2022-11-25 11:05] VITALS: RESP 14; O2SAT 97
[2022-11-25] MEDS: morphine 4 mg/mL SDV 1 mL IVP (11:05)
[2022-11-25 11:18] VITALS: BP 148/104; PULSE 70; RESP 16; O2SAT 99
[2022-11-25] MEDS: sodium chloride 0.9% 1,000 ML 999 ML IV (11:46)
== END 2022-11-25 13:59 | disposition home or self-care (01) ==
PROVIDERS: Emergency Provider Family Medicine; PCP Family Medicine
DX: R03.0 Elevated blood-pressure reading, without diagnosis of hypertension (principal); Z98.818 Other dental procedure status; Z86.73 Personal history of transient ischemic attack (TIA), and cerebral infarction without residual deficits
CPT/HCPCS: 71045; 80053; 81001; 85025; 96361; 96374; 96375; 99284; J2270; J2405; J7030

== ENCOUNTER 2022-12-30 14:06 | Outpatient (CLI) | payer MEDICAID, SELFPAY ==
--- NOTE | 2022-12-30 14:30 | USCV_ITS ---
Eliana Julio Age: 42 Gender: F : 1980 Exam Date: 12/30/2022 14:23 Ordering Phys: Jeronimo Cortez M.D ([email or web address]) Technologist: AYLIN [place] [facility] [place]: PRESYNCOPE Risk Factors: Previous Vascular Surgery: Right Brachial BP: / Left Brachial BP: / Right Left Velocity (cm/s) Spectral Plaque Velocity (cm/s) Spectral Plaque Syst/Diast Broadening Syst/Diast Broadening 114.70/24.30 Prox CCA 123.60/ 25.00 111.40/25.40 Mid CCA 115.70/ 26.30 106.90/28.70 Distal CCA 124.90/ 34.20 53.20/ 22.30 Prox ICA 48.70 / 12.20 76.70/ 26.00 Mid ICA 83.70 / 22.70 77.80/ 34.60 Distal ICA 60.70 / 17.90 133.40 ECA 109.60 0.68 ICA/CCA 0.67 Vertebral 62.40/ 20.50 cm/s 49.40/ 10.00 cm/s Subclavian 156.4 143.2 0 0 FINDINGS Comparison: none available. No significant elevation of systolic or diastolic velocities. Waveforms are normal. No significant amount of calcified plaque or intimal thickening identified. CONCLUSIONS Normal carotid doppler ultrasound. Dr. Maggie Chery DO (Electronically Signed) Final Date: 30 December 2022 16:13 S
== END 2022-12-30 14:07 | disposition home or self-care (01) ==
LOC: RAD 14:09
PROVIDERS: PCP Family Medicine; Visit Provider Internal Medicine
DX: R55 Syncope and collapse (principal)
CPT/HCPCS: 93880

== ENCOUNTER 2023-07-31 08:05 | Outpatient (CLI) | payer MEDICAID, SELFPAY ==
--- NOTE | 2023-07-31 09:13 | MM_ITS ---
WS: [id number] BILATERAL SCREENING DIGITAL TOMOSYNTHESIS MAMMOGRAM WITH CAD HISTORY: SCREENING COMPARISON: 02/12/2022, 01/25/2021 Bilateral CC and MLO views with tomosynthesis and synthetic mammography submitted. Computer aided det ection analyzed. Breast composition: The breasts are heterogeneously dense, which may obscure small masses. No suspici ous masses, microcalcifications or architectural distortion. IMPRESSION: MM/[place] [id number] BI-RADS: 1-Negative FOLLOW UP: 1 Year Follow-up
== END 2023-07-31 08:06 | disposition home or self-care (01) ==
PROVIDERS: PCP Family Medicine; Visit Provider Family Medicine
DX: Z12.31 Encounter for screening mammogram for malignant neoplasm of breast (principal)
CPT/HCPCS: 77063; 77067

== ENCOUNTER 2023-11-18 08:50 | Observation (INO) | payer MEDICAID, SELFPAY ==
[2023-11-18] VITALS (10 sets, daily range): BP systolic 118–152; BP diastolic 74–106; PULSE 91–153; RESP 18–146; TEMP 36.8–37.7; O2SAT 94–99; BMI 32.1
--- NOTE | 2023-11-18 09:13 | ECG_ITS ---
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 Measurements Intervals [place] Rate: 146 P: 65 NE: 158 QRS: -37 QRSD: 91 T: 62 QT: 350 QTc: 546 Interpretive Statements SINUS TACHYCARDIA WITH OCCASIONAL VENTRICULAR PREMATURE COMPLEXES, POSSIBLE ATRIAL FLUTTER LEFT AXIS DEVIATION [QRS AXIS < -30] PATTERN CONSISTENT WITH PULMONARY DISEASE INFERIOR MYOCARDIAL INFARCTION , PROBABLY OLD [40+ ms Q WAVE AND/OR ST/T ABNORMALITY IN II/aVF] INTERPRETATION BASED ON A DEFAULT AGE OF 40 YEARS No previous ECG available for comparison Electronically Signed On 11-18-2023 10:10:11 OBSTETRICS TECH by Jeronimo Cortez M.D. [email or web address]
--- NOTE | 2023-11-18 09:15 | W.ED.NAVMDI ---
HPI - Nausea/Vomiting/Diarrhea General: Chief complaint: Nausea/Vomiting/Diarrhea Stated complaint: Vomiting, SOB Time Seen by Provider: 11/18/23 09:05 Source: patient Mode of arrival: ambulatory History of Present Illness: 43-year-old female presents emergency room with complaints of nausea vomiting for the last week as well as some ear pain. This morning she had worsening abdominal pain and cramping and back pain. Abdominal pain is diffuse. Patient is hyperventilating and vomiting on arrival. She states she not had any hematochezia melena hematemesis or coffee-ground emesis she was seen in outside ER she was tachycardic at that time had a CT done as well as given IV fluids and ultimately was discharged home. She has had previous small bowel resection no known history of coronary disease she is not diabetic. No chronic kidney disease. No dysuria urgency or frequency or hematuria. MD elicited complaint: nausea and vomiting Associated symtoms: Denies chest pain or dysuria Review of Systems Const: Denies: fever(s) or chills Card: Denies: chest pain Resp: Denies: dyspnea GI: Denies: abdominal pain : Denies: dysuria, urinary frequency or urinary urgency Musc: Denies: neck pain or back pain Skin/Breast: Denies: rash PFSH ED PFSH: Medical History History of umbilical hernia Anxiety Asthma CVA (cerebral vascular accident) Migraine Surgical History History of surgery on arm H/O gastric sleeve History of resection of small bowel History of laparotomy History of mandibular surgery Status post cholecystectomy Status post gastric bypass for obesity Status post rotator cuff repair Status post hernia repair Family History Mother Headache Depression Father Stroke Hypertension Brother Depression Stroke Sister Depression Cancer Anxiety Social History Smoking and tobacco/nicotine status: never used tobacco/nicotine Alcohol intake: never Substance/Drug Use: never Physical Exam Const: COMMON NORMALS: no acute distress GENERAL APPEARANCE: cooperative and comfortable ORIENTATION/CONSCIOUSNESS: Yes awake, Yes oriented to person, Yes oriented to place and Yes oriented to time HENMT: COMMON NORMALS: normocephalic, atraumatic and hearing grossly normal bilaterally HEAD & SCALP: normocephalic and atraumatic Resp: COMMON NORMALS: normal respiratory effort, No retractions, No use of accessory muscles and clear to auscultation bilaterally AUSCULTATION: clear to auscultation bilaterally Cardio: COMMON NORMALS: regular rate, regular rhythm and No murmurs present (Cardio) RATE: regular rate RHYTHM: regular rhythm GI: COMMON NORMALS: Soft to palpation and No hepatosplenomegaly present AUSCULTATION: Yes normoactive bowel sounds PALPATION: Yes Soft to palpation, No Tenderness to palpation present (GI), No Guarding due to palpation present (GI) and Yes No hepatosplenomegaly present Extremity: COMMON NORMALS: normal to inspection, capillary refill normal, no clubbing, cyanosis or edema, no calf tenderness and no pedal edema Neuro: SENSORIUM/ORIENTATION: Yes oriented to person, Yes oriented to place and Yes oriented to time Skin: COMMON NORMALS: no rashes or lesions noted GENERAL SKIN EXAM: no rashes or lesions noted Course Vital Signs: Vital signs: Vital Signs Temperature 98.0 F 11/21/23 16:00 Pulse Rate 74 11/21/23 16:00 Respiratory Rate 22 H 11/21/23 16:00 Blood Pressure 129/84 11/21/23 16:00 Pulse Oximetry 92 11/21/23 16:00 Oxygen Delivery Me thod Nasal Cannula 11/21/23 16:00 Oxygen Flow Rate 1 11/21/23 11:28 MDM - Nausea/Vomiting/Diarrhea Medical Decision Making Persistent nausea and vomiting with tachycardia elevated lactic acidosis probably from dehydration. Will admit discussed with hospitalist orders written. Patient was mildly tachypneic. Significant tachycardia noted. Medical Records I reviewed the patient's medical records. Lab Data I reviewed the patient's lab results. 11/21/23 03:17 11/21/23 03:17 Radiology Impressions Abdomen/Pelvis CT 11/18/23 09:17 IMPRESSION: 1. No acute pathology. 2. Minor findings including nonobstructive right renal calculus, fatty change of the liver and features of prior surgery as above. Chest CTA 11/18/23 12:51 IMPRESSION: No Evidence of pulmonary embolism or other acute chest disease. Chest X-Ray 11/21/23 06:00 IMPRESSION: Small amount of new atelectasis and/or pneumonitis left lung base. Laboratory Results WBC 10.17 10^3/uL (3.29-11.43) 11/18/23 09:17 RBC 5.06 10^6/uL (3.85-5.65) 11/18/23 09:17 Hgb 14.50 g/dL (11.27-16.99) 11/18/23 09:17 Hct 43.4 % (36-47) 11/18/23 09:17 MCV 85.8 fl (85-98) 11/18/23 09:17 MCH 28.7 pg (27-33) 11/18/23 09:17 MCHC 33.4 g/dL (30-55) 11/18/23 09:17 RDW 14.1 % (12.1-15.1) 11/18/23 09:17 Plt Count 338 10^3/cmm (157-399) 11/18/23 09:17 MPV 8.2 fL (7.4-10.4) 11/18/23 09:17 Neut % (Auto) 83.4 % 11/18/23 09:17 Lymph % (Auto) 7.9 % 11/18/23 09:17 [place] % (Auto) 5.9 % 11/18/23 09:17 Eos % (Auto) 1.7 % 11/18/23 09:17 Baso % (Auto) 0.7 % 11/18/23 09:17 Neut # (Auto) 8.49 10^3/uL (1.8-7.7) H 11/18/23 09:17 Lymph # (Auto) 0.8 10^3/uL (0.8-4.8) 11/18/23 09:17 [place] # (Auto) 0.6 10^3/uL (0.2-0.9) 11/18/23 09:17 Eos # (Auto) 0.2 10^3/uL (0.0-0.8) 11/18/23 09:17 Baso # (Auto) 0.1 10^3/uL (0.0-0.1) 11/18/23 09:17 Nucleated RBC % (auto) 0 % 11/18/23 09:17 Nucleated RBCs # 0.0 /100WBC 11/18/23 09:17 Specimen Type Arterial 11/18/23 09:10 Sample Site Radial, right 11/18/23 09:10 ABG pH 7.46 (7.35-7.45) H 11/18/23 09:10 ABG pCO2 29.0 mmHg (35-45) L 11/18/23 09:10 ABG pO2 60.4 mmHg (80.0-100.0) L 11/18/23 09:10 ABG PO2/FiO2 Ratio 0 11/18/23 09:10 ABG HCO3 20.6 mmol/L (22-26) L 11/18/23 09:10 ABG O2 Saturation 93.7 11/18/23 09:10 ABG Base Excess -2.0 mmol/L (-2.0-2.0) 11/18/23 09:10 [place] Test Pos 11/18/23 09:10 A-a O2 Gradient 7.0 mmHg (5-10) 11/18/23 09:10 Hematocrit 44.2 % (37-47) 11/18/23 09:10 Hgb O2 Saturation 92.6 % (95-100) L 11/18/23 09:10 Carboxyhemoglobin 0.9 %THgb (0.4-20.1) 11/18/23 09:10 Methemoglobin 0.2 % (0.4-1.5) L 11/18/23 09:10 Total Hemoglobin 14.4 g/dL (12-16) 11/18/23 09:10 Sodium 141.0 mmol/L (131-143) 11/18/23 09:10 Potassium 3.5 mmol/L (3.5-5.0) 11/18/23 09:10 Glucose 138.0 mg/dL (70-115) H 11/18/23 09:10 Ionized Calcium 1.2 mmol/L (1.1-1.4) 11/18/23 09:10 O2 Delivery Device Room air 11/18/23 09:10 FiO2 21.0 % 11/18/23 09:10 Rig Builder ID [place] 11/18/23 09:10 Sodium 140 mmol/L (136-145) 11/18/23 09:17 Potassium 3.7 mmol/L (3.5-5.1) 11/18/23 09:17 Chloride 102 mmol/L (98-107) 11/18/23 09:17 Carbon Dioxide 22 mmol/L (22-29) 11/18/23 09:17 Anion Gap 19.7 (5-19) H 11/18/23 09:17 BUN 8 mg/dL (6-20) 11/18/23 09:17 Creatinine 0.5 mg/dL (0.5-0.9) 11/18/23 09:17 GFR Calculation 133.4 mL/min (90-130) H 11/18/23 09:17 Glucose 132 mg/dL (65-115) H 11/18/23 09:17 Calculated Osmolality 290 mOsm/kg (285-295) 11/18/23 09:17 Lactic Acid 3.5 mmol/L (0.5-2.2) H 11/18/23 09:17 Lactic Acid (Sepsis) 1.9 mmol/L (0.5-2.2) 11/18/23 12:21 Calcium 10.1 mg/dL (8.5-10.5) 11/18/23 09:17 Magnesium 1.6 mg/dL (1.7-2.3) L 11/18/23 09:17 Total Bilirubin 0.7 mg/dL (0.15-1.2) 11/18/23 09:17 AST 18 U/L (0-32) 11/18/23 09:17 ALT 14 U/L (0-33) 11/18/23 09:17 Alkaline Phosphatase 91 U/L (35-105) 11/18/23 09:17 Troponin T Baseline < 6 ng/L (0-10) 11/18/23 09:17 Troponin T 120 Minute 6.00 ng/L (0-10) 11/18/23 13:13 Delta Troponin T 0.56663 ABS# (0-10) 11/18/23 13:13 Troponin T Hi Sens 6Hr 8.78 ng/L (0-10) 11/18/23 15:12 Troponin T Hi Sens 6Hr Delta 2.82008 ng/L (0-12) 11/18/23 15:12 Total Protein 8.1 g/dL (6.6-8.7) 01/03/24 09:17 Albumin 4.6 g/dL (3.5-5.2) 11/18/23 09:17 Globulin 3.5 g/dL (1.3-4.6) 11/18/23 09:17 Lipase 23 U/L (13-60) 11/18/23 09:17 TSH 0.48 uIU/mL (0.27-4.20) 11/18/23 09:17 Urine Color Yellow (Yellow) 11/18/23 10:57 Urine Appearance Clear (CLEAR) 11/18/23 10:57 Urine pH 8 (5-7) H 11/18/23 10:57 Ur Specific [place] 1.010 (1.005-1.030) 11/18/23 10:57 Urine Protein Neg (Negative) 11/18/23 10:57 Urine Glucose (UA) Norm (Normal) 11/18/23 10:57 Urine Ketones 1+ (Negative) H 11/18/23 10:57 Urine Blood Neg (Negative) 11/18/23 10:57 Urine Nitrate Negative (Negative) 11/18/23 10:57 Urine Bilirubin Neg (Negative) 11/18/23 10:57 Prot Sulfosalicylic Acd Negative (Negative) 11/18/23 10:57 Urine Urobilinogen 1 mg/dL (Negative) H 11/18/23 10:57 Ur Leukocyte Esterase Negative (Negative) 11/18/23 10:57 Levetiracetam <2.0 mcg/mL (6.0-46.0) L 11/18/23 09:17 Serum Ketones Negative (Negative) 11/18/23 09:17 Influenza Type A Ag negative (Negative) 11/18/23 14:14 Influenza Type B Ag negative (Negative) 11/18/23 14:14 All radiology interpretation(s) finalized by discharge Discharge Plan Discharge Patient Disposition: Admitted As Inpatient Admit Provider: Jm Balderrama Clinical Impression: Pneumonia, Dehydration, Nausea & vomiting Condition: Stable Discharge Diet: Advance as tolerated, Low Salt and GI Soft Coding Level of Care Code ED [employer] Maker 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
--- NOTE | 2023-11-18 09:17 | CTR_ITS ---
PROCEDURE INFORMATION: Exam: CT Abdomen And Pelvis Without Contrast Exam date and time: 11/18/2023 9:50 AM Age: 43 years old Clinical indication: Nausea and vomiting; Generalized; Prior surgery; Surgery date: 6+ months; Surgery type: Gastric bypass. Gb. Hernia repair. Patient HX: Diffuse abd pain with n/v/d x several days. ; Additional info: Abdominal pain TECHNIQUE: Imaging protocol: Computed tomography of the abdomen and pelvis without contrast. COMPARISON: CT abdomen pelvis con [id number] 07/14/2022 1:44 PM RADIATION DOSE METRICS: Total DLP (mGy-cm): 931.3 FINDINGS: Lungs: No significant pathology at the imaged lung bases. Diaphragm: Small hiatal hernia. Liver: Fatty change of the liver. Gallbladder and bile ducts: Prior cholecystectomy. No biliary dilatation. Pancreas: No significant pancreatic pathology. Spleen: No significant splenic pathology. Adrenal glands: No significant adrenal pathology. Kidneys and ureters: Nonobstructive 2 mm calculus interpolar segment right kidney. Unremarkable left kidney. Stomach and bowel: Prior gastric sleeve resection. Colonic diverticulosis without evidence of focal inflammatory change. Appendix: No appendiceal pathology evident. Intraperitoneal space: No ascites. Vasculature: No abdominal aortic aneurysm. Lymph nodes: No enlarged nodes by criteria. Urinary bladder: Urinary bladder is nondistended limiting assessment of the wall. Reproductive: Prior hysterectomy. No significant adnexal pathology. Bones/joints: No significant bony pathology. Soft tissues: Postoperative changes anterior abdominal wall. CT/CT abdomen pelvis con [id number] IMPRESSION: 1. No acute pathology. 2. Minor findings including nonobstructive right renal calculus, fatty change of the liver and features of prior surgery as above.
[2023-11-18] MEDS: sodium chloride 0.9% 1,000 ML 999 ML IV ×2 (09:23→10:43)
[2023-11-18] MEDS: ondansetron 2 mg/ML SDV 2 mL 4 MG IVP (09:23)
[2023-11-18 09:27] LABS: Basophils # 0.1 10^3/uL (0.0-0.1); Basophils % 0.7 %; Eosinophils # 0.2 10^3/uL (0.0-0.8); Eosinophils % 1.7 %; Hematocrit 43.4 % (36-47); Lymphocytes # 0.8 10^3/uL (0.8-4.8); Lymphocytes % 7.9 %; Mean Corpuscular HGB Conc 33.4 g/dL (30-55); Mean Corpuscular Hemoglobin 28.7 pg (27-33); Mean Corpuscular Volume 85.8 fl (85-98); Mean Platelet Volume 8.2 fL (7.4-10.4); Monocytes # 0.6 10^3/uL (0.2-0.9); Monocytes % 5.9 %; Neutrophils # 8.49 10^3/uL (1.8-7.7); Neutrophils % 83.4 %; Nucleated Red Blood Cells % 0 %; Platelet Count 338 10^3/cmm (157-399); Red Blood Count 5.06 10^6/uL (3.85-5.65); Red Cell Distribution Width 14.1 % (12.1-15.1); White Blood Count 10.17 10^3/uL (3.29-11.43)
[2023-11-18] MEDS: LORazepam 2 mg/mL INJ 10 mL MDV IV (09:38)
[2023-11-18 09:40] LABS: Alanine Aminotransferase 14 U/L (0-33); Albumin Level 4.6 g/dL (3.5-5.2); Alkaline Phosphatase 91 U/L (35-105); Anion Gap 19.7 (5-19); Aspartate Amino Transferase 18 U/L (0-32); Blood Urea Nitrogen 8 mg/dL (6-20); Calcium 10.1 mg/dL (8.5-10.5); Carbon Dioxide 22 mmol/L (22-29); Chloride 102 mmol/L (98-107); Globulin 3.5 g/dL (1.3-4.6); Glomerular Filtration Rate 133.4 mL/min (90-130); Glucose 132 mg/dL (65-115); Lipase 23 U/L (13-60); Magnesium 1.6 mg/dL (1.7-2.3); Osmolality Calculated 290 mOsm/kg (285-295); Potassium 3.7 mmol/L (3.5-5.1); Sodium 140 mmol/L (136-145); Total Bilirubin 0.7 mg/dL (0.15-1.2); Total Protein 8.1 g/dL (6.6-8.7)
[2023-11-18 09:43] LABS: Lactic Sepsis W/Reflex 3.5 mmol/L (0.5-2.2)
[2023-11-18 09:54] LABS: Ketone (Acetest) Serum Negative (Negative)
[2023-11-18 09:58] LABS: ABG PH Result 7.46 (7.35-7.45); Arterial Blood Gas Hematocrit 44.2 % (37-47); Blood Gas Allen Test Pos; Blood Gas Operator Identificat MONRO; Blood Gas Sample Site Radial, right; Blood Gas Sample Type Arterial; Carboxyhemoglobin 0.9 %THgb (0.4-20.1); HCO3 ABG 20.6 mmol/L (22-26); HGB O2 Sat 92.6 % (95-100); Ionized Calcium Level - ABG 1.2 mmol/L (1.1-1.4); Methemoglobin 0.2 % (0.4-1.5); Oxygen Device ROOM AIR; Oxygen Saturation ABG 93.7; PO2 ABG 60.4 mmHg (80.0-100.0); PO2 FiO2 Ratio Arterial Blood 0; Potassium Level - ABG 3.5 mmol/L (3.5-5.0); Total Hemoglobin 14.4 g/dL (12-16)
[2023-11-18 11:09] LABS: Reflex Lactate Order REFLEX LACTIC ORDERD
[2023-11-18 11:48] LABS: Add Urine Microscopic? NO; Charge for UA Resulting for Rev
[2023-11-18 12:08] LABS: Bilirubin Urine Neg (Negative); Blood Urine Neg (Negative); Glucose Urine UA Norm (Normal); Ketones Urine 1+ (Negative); Leukocyte Esterase Urine Negative (Negative); Nitrate Urine Negative (Negative); Protein Urine Neg (Negative); Sulfosalicylic Acid Urine Negative (Negative); Urine Appearance Clear (CLEAR); Urine Color Yellow (Yellow); Urobilinogen Urine 1 mg/dL (Negative); pH Urine 8 (5-7)
--- NOTE | 2023-11-18 12:51 | XR_ITS ---
WS: [id number] Portable AP upright chest, 11/18/2023 Clinical Data: dyspnea/cough Comparison: Portable chest, 11/25/2022 Findings: No nodules, masses or effusions are seen. The heart is normal. The pulmonary vascularity is not increased. No pneumonia or pneumothorax is seen. Monitor leads are on the chest wall. There is a slight dextroscoliosis of the thoracic spine. Impression: Negative chest.
--- NOTE | 2023-11-18 12:51 | CTR_ITS ---
PROCEDURE INFORMATION: Exam: CTA Chest With Contrast Exam date and time: 11/18/2023 1:26 PM Age: 43 years old Clinical indication: Cough and shortness of breath; Additional info: Tachycardia dyspnea TECHNIQUE: Imaging protocol: Computed tomographic angiography of the chest with contrast. Exam focused on the arteries. 3D rendering (Not supervised by radiologist): MIP and/or 3D reconstructed images were created by the technologist. Radiation optimization: All CT scans at this facility use at least one of these dose optimization techniques: automated exposure control; mA and/or kV adjustment per patient size (includes targeted exams where dose is matched to clinical indication); or iterative reconstruction. Contrast material: OMNI 350; Contrast volume: 100 ml; Contrast route: INTRAVENOUS (IV); COMPARISON: CR XR chest 1V portable [id number] 11/18/2023 1:06 PM RADIATION DOSE METRICS: Total DLP (mGy-cm): 434 FINDINGS: Pulmonary arteries: No pulmonary embolism evident. Aorta: No abdominal aortic aneurysm. Thyroid: No significant thyroid pathology. Lungs: Mild lingular scar versus atelectasis. Pleural spaces: No pleural effusion. Heart: Unremarkable. No cardiomegaly. No pericardial effusion. Lymph nodes: No enlarged nodes by criteria. Diaphragm: Small hiatal hernia. Bones/joints: Mild dextrocurvature thoracic spine.Mild degenerative change present in the spine. Soft tissues: Unremarkable. Other findings: Evaluation limited by respiratory degradation. See accompanying abdominal CT for other findings. CT/CT angio chest PE protcl [id number] IMPRESSION: No Evidence of pulmonary embolism or other acute chest disease.
--- NOTE | 2023-11-18 12:54 | ECG_ITS ---
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 Measurements Intervals [place] Rate: 122 P: 57 WA: 177 QRS: -2 QRSD: 93 T: 66 QT: 420 QTc: 601 Interpretive Statements SINUS TACHYCARDIA Compared to ECG 11/18/2023 09:13:39 Atrial flutter no longer present Left-axis deviation no longer present Myocardial infarct finding no longer present Electronically Signed On 11-18-2023 19:01:41 [employer] by Jeronimo Cortez M.D. [id number]
[2023-11-18 13:10] LABS: Lactic Acid level (Lactate) 1.9 mmol/L (0.5-2.2)
[2023-11-18] MEDS: iohexol 350 mg/mL 500 mL Btl (per mL) IV (13:38)
[2023-11-18 13:46] LABS: Troponin(5th) Baseline < 6 ng/L (0-10)
[2023-11-18 13:47] LABS: Troponin 5 2HR Delta 0.00001 ABS# (0-10)
[2023-11-18] MEDS: dexamethasone 10 mg/mL INJ IVP (14:12)
[2023-11-18] MEDS: ipratropium-albuterol 3 mL Neb INHALATION (14:15)
[2023-11-18 14:52] LABS: Influenza A by IFA negative (Negative); Influenza B by IFA negative (Negative)
--- NOTE | 2023-11-18 15:07 | ECG_ITS ---
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 Measurements Intervals [place] Rate: 131 P: 56 WV: 181 QRS: -37 QRSD: 94 T: 60 QT: 390 QTc: 576 Interpretive Statements SINUS TACHYCARDIA LEFT AXIS DEVIATION [QRS AXIS < -30] POSSIBLE ANTERIOR MYOCARDIAL INFARCTION , PROBABLY OLD [30 ms Q WAVE IN V3/V4, OR R < 0.2 mV IN V4] Compared to ECG 11/18/2023 12:58:24 Left-axis deviation now present Myocardial infarct finding now present Electronically Signed On 11-18-2023 19:02:20 [employer] by Jeronimo Cortez M.D. [id number]
[2023-11-18 15:45] LABS: Troponin 5 6HR 8.78 ng/L (0-10)
[2023-11-18 16:08] LABS: Amphetamines Screen Urine Negative (Negative); Barbiturates Screen Urine Negative (Negative); Benzodiazepines Screen Urine Positive (Negative); Cocaine Screen Urine Negative (Negative); Opiate Screen Urine Negative (Negative); PCP Screen Urine Negative (Negative); THC Screen Urine Positive (Negative)
--- NOTE | 2023-11-18 16:12 | PC.NURSE ---
MELODIE WASSERMAN TOOK OVER CARE AT [id number]
[2023-11-18] MEDS: magnesium sulfate premix 2 GM/50 ML PIGGYBACK IV (16:32)
--- NOTE | 2023-11-18 16:33 | P.HP_ITS ---
Providers/Chief Complaint 2 Admitting Physician: Jm Balderrama Primary Care Provider: Marcos Dumas MD Chief Complaint: Vomiting, SOB History of Present Illness 43-year-old lady with history of epilepsy, trigeminal neuralgia, chronic pain syndrome, asthma, CVA, migraine, multiple past abdominal surgeries, history of bowel obstruction, has been feeling unwell for the last 10 days since last Thursday. States she was initially coughing, but also having some nausea, has had recurrent vomiting, diarrhea, now mucus, denies hematemesis or hematochezia. Has been having some subjective fevers. Cough has subsided. Her father who lives with her was ill around the same time and is following up on the outpatient side. She is not sure if he has been diagnosed with anything. In ER she is found with sinus tachycardia up as high as 150s. Lactic acid 3.5. Magnesium 1.6. She does report some lower extremity cramps. CT abdomen pelvis without acute pathology, nonobstructive renal calculi, fatty change of liver, old surgical changes. CT angiogram chest without PE or other acute disease. She reports about a month ago was started on Topamax but could not tolerate the medication with multiple adverse effects at that time her Keppra dose was half, due to intolerance Topamax was discontinued and previous Keppra dose was restored. Denies any other medication changes. Review of Systems 2 Const: Reports: change in appetite and malaise ENMT: Denies: throat pain Card: Denies: chest pain, edema, pre-syncope or dyspnea on exertion Resp: Denies: dyspnea, productive cough, change in phlegm color or hemoptysis GI: Reports: abdominal pain, nausea, vomiting and diarrhea (Mucous); Denies: constipation, hematochezia or melena : Denies: flank pain, urinary frequency or hematuria Musc: Denies: back pain, joint swelling or joint redness Skin/Breast: Denies: rash or new lesions Neuro: Reports: confusion (Some slowed mentation, possibly some hallucinations versus dreams.) Medications/Allergies Home Medications Medication Instructions Recorded Confirmed Last Taken Type omeprazole 40 mg capsule,delayed 40 mg PO BID 03/04/22 11/18/23 11/17/23 History release ondansetron 4 mg disintegrating 4 mg PO Q8H PRN Nausea And Vomiting 03/04/22 11/18/23 07/14/22 10:00 History tablet epinephrine 0.3 mg/0.3 mL 0.3 mg IM Q4H PRN Allergic Reaction 07/14/22 11/18/23 Unknown History injection, auto-injector (EpiPen 2-Alexy) fluconazole 150 mg tablet 150 mg PO Q7D 07/14/22 11/18/23 11/12/23 History fluticasone 250 mcg-salmeterol 50 1 inh inhalation BID 07/14/22 11/18/23 11/17/23 History mcg/dose blistr powdr for inhalation (Advair Diskus) multivitamin 1 tab PO DAILY 07/14/22 11/18/23 11/17/23 History venlafaxine 225 mg tablet,extended 225 mg PO QAM 07/14/22 11/18/23 11/17/23 History release 24 hr diphenhydramine HCl 25 mg capsule 50 mg PO BID PRN Allergic Symptoms 09/25/22 11/18/23 Unknown History (Benadryl) cholecalciferol (vitamin D3) 125 125 mcg PO DAILY 11/25/22 11/18/23 11/17/23 History mcg (5,000 unit) tablet (Vitamin D3) mometasone-formoterol HFA 200 2 puff inhalation BID 11/25/22 11/18/23 11/17/23 History mcg-5 mcg/actuation aerosol inhaler (Dulera) oltsobdkymvwx-trnpjgxosyefk-ynqzgcqvqan 2 tab PO Q4H PRN Sinus Symptoms 11/25/22 11/18/23 Unknown History 5 mg-325 mg-200 mg tablet (Tylenol Sinus Severe) benzonatate 200 mg capsule 200 mg PO Q8H PRN Cough 11/18/23 11/18/23 Unknown History buspirone 10 mg tablet 10 mg PO BID 11/18/23 11/18/23 11/17/23 History hydrocodone 5 mg-acetaminophen 325 1 tab PO Q4H PRN Pain, Moderate 11/18/23 11/18/23 Unknown History mg tablet levetiracetam 250 mg tablet 250 mg PO BID 11/18/23 11/18/23 11/17/23 History metoclopramide HCl 10 mg tablet 10 mg PO TID PRN nausea/emesis 11/18/23 11/18/23 Unknown History pimecrolimus 1 % topical cream 1 applic topical BID PRN unknown 11/18/23 11/18/23 Unknown History (Elidel) triamcinolone acetonide 0.1 % See Rx Instructions .Route .COMPLEX 11/18/23 11/18/23 Unknown History topical cream Allergies Allergy/AdvReac Type Severity Reaction Status Date / Time Latex, Natural Rubber Allergy Severe ALGY-Difficulty Verified 09/21/23 09:52 Breathing aspirin Allergy ALGY-Difficulty Verified 09/21/23 09:52 Breathing atorvastatin [From Lipitor] Allergy Unknown Verified 09/21/23 09:52 banana Allergy Unknown Verified 09/21/23 09:52 doxycycline Allergy Unknown Verified 09/21/23 09:52 NSAIDS (Non-Steroidal Allergy ALGY-Difficulty Verified 09/21/23 09:52 Anti-Inflamma Breathing orange Allergy Unknown Verified 09/21/23 09:52 pineapple Allergy Unknown Verified 09/21/23 09:52 trazodone Allergy Unknown Verified 09/21/23 09:52 watermelon Allergy Unknown Verified 09/21/23 09:52 dermabound Allergy Unknown Unknown Uncoded 09/21/23 09:52 PFSH Acute 2 PFSH: Medical History History of umbilical hernia Anxiety Asthma CVA (cerebral vascular accident) Migraine Surgical History History of surgery on arm H/O gastric sleeve History of resection of small bowel History of laparotomy History of mandibular surgery Status post cholecystectomy Status post gastric bypass for obesity Status post rotator cuff repair Status post hernia repair Family History Mother Headache Depression Father Stroke Hypertension Brother Depression Stroke Sister Depression Cancer Anxiety Social History Smoking and tobacco/nicotine status: never used tobacco/nicotine Alcohol intake: never Substance/Drug Use: never Vitals/I&O/Wt Last Vital Signs Temp 99.8 F H 11/18/23 08:57 Pulse 125 H 11/18/23 14:18 Resp 18 11/18/23 14:11 BP 142/96 11/18/23 10:43 Pulse Ox 95 11/18/23 14:11 O2 Del Method Room Air 11/18/23 14:11 11/18/23 11/18/23 11/18/23 06:59 14:59 22:59 Intake Total 116.55 / 116.55 Balance 116.55 / 116.55 Weight last 48 hrs Weight 92.986 kg Physical Exam 2 Const: COMMON NORMALS: patient oriented x3 and alert GENERAL APPEARANCE: c ooperative ORIENTATION/CONSCIOUSNESS: Yes awake OTHER: Ill-appearing. HENMT: COMMON NORMALS: oropharynx normal Neck/C-Spine: COMMON NORMALS: no JVD Resp: COMMON NORMALS: normal respiratory effort and clear to auscultation bilaterally AUSCULTATION: clear to auscultation bilaterally Cardio: COMMON NORMALS: no JVD, regular rhythm, S1 normal heart sound present, S2 normal heart sound present and No murmurs present (Cardio) RATE: t achycardic RHYTHM: regular rhythm HEART SOUNDS: S1 normal heart sound present and S2 normal heart sound present GI: COMMON NORMALS: Normal to inspection, nondistended, normoactive bowel sounds present, Soft to palpation and non-tender PALPATION: Yes Soft to palpation Extremity: COMMON NORMALS: no joint enlargement and no pedal edema Neuro: COMMON NORMALS: patient oriented x3 and moves all extremities S ENSORIUM/ORIENTATION: Yes alert Skin: COMMON NORMALS: no rashes or lesions noted GENERAL SKIN EXAM: no rashes or lesions noted Data 11/18/23 09:17 11/18/23 09:17 A&P Assessment and plan (1) Nausea vomiting and diarrhea: Has been unwell for the past 10 days since last Thursday, her father has been ill as well. Has not been taking her medications for about a week as has not been able to keep them down. Unclear cause of her symptoms, possible infectious gastroenteritis. Reviewed CT abdomen pelvis, unremarkable. She otherwise is afebrile, low-grade temp 99.8 in the ER. Without leukocytosis, does report some subjective fever initially also having some cough. Will check respiratory viral panel. Discussed with her we will also check stool studies including C. difficile. ABG reviewed, noted contraction alkalosis with compensatory respiratory acidosis. Lactic acidosis 3.5. Otherwise not fitting sepsis criteria. For now hold off on antibiotic. Will additionally assess stool studies for C. difficile, Salmonella, Shigella, combo doctor. Her presentation was likely also combination with withdrawal from at least on her medications that she has not been able to take them/could not keep them down for a week. Will switch Keppra to IV at this time. Will continue venlafaxine if she is able to hold it down. Additionally UDS reviewed, noted positive for marijuana. Possible contribution from cannabinoid hyperemesis syndrome. Past history of bowel obstructions with multiple prior abdominal surgeries, CT abdomen pelvis reviewed, no sign of obstruction. Reports chronic constipation due to his does not take opioids. Has bowel movements maybe twice a month. Reviewed vitals, CBC, ABG, CMP, lipase, magnesium, UA, UDS, rapid influenza, EKG, on my interpretation sinus tachycardia, chest x-ray, chest CTA, abdomen pelvis CT. Reviewed ER note. Discussed with ER physician. Zofran as needed. PPI. IV fluid. Lovenox VT prophylaxis. (2) Tachycardia: Sinus tachycardia, no obvious cause, he is dehydrated, possibly withdrawal from her medications. Reports some symptoms of metabolic encephalopathy with some hallucinations versus dreams. Reviewed EKG, first EKG is reporting atrial flutter but computer on my review not obvious flutter, reviewing other 2 EKGs again sinus tachycardia not obvious flutter, although baseline is jagged with some mild tremor. Discussed with cardiology, they will review EKG to see if may be underlying atrial flutter. No signs of serotonin syndrome. On review of CTA no PE. Troponin reviewed, WNL. No suggestion of acute ischemia. Monitor on telemetry. Noted hypomagnesemia on review of magnesium, replace. Check TSH. Plan Hypomagnesemia: Having leg cramps. Replace. Epilepsy, Switch Keppra to IV. Cannot order 250 IV twice daily, discussed with pharmacist, was instructed to place order for 500 twice daily with, 250 mg twice daily which will be added in pharmacy. Trigeminal neuralgia, Could not tolerate Topamax.It was discontinued. chronic pain syndrome, Continue venlafaxine. She does not take opioids. Asthma, Not in exacerbation. Albuterol neb as needed. CVA, Migraine, Multiple past abdominal surgeries, History of bowel obstruction No evidence of obstruction currently. Attestations 2 Medical Necessity Statement*: Place in observation for additional assessment and management of recurrent nausea and vomiting, inability to tolerate oral intake or medications, persistent sinus tachycardia, metabolic encephalopathy in a lady with multiple comorbidities including epilepsy on multiple medications. Coding Level of Care Code 50399 Diagnoses Nausea vomiting and diarrhea R11.2; R19.7 Tachycardia R00.0
--- NOTE | 2023-11-18 16:54 | PC.NURSE ---
Patient comes to [facility] from the ED at 1650 via a bed.
[2023-11-18 17:03] LABS: Thyroid Stimulating Hormone 0.48 uIU/mL (0.27-4.20)
[2023-11-18] MEDS: pantoprazole 40 mg SDV IVP (17:16)
[2023-11-18] MEDS: ondansetron 4 MG Tablet PO (17:16)
[2023-11-18] MEDS: enoxaparin 40 mg/0.4 mL Syringe SUBCUT (17:16)
[2023-11-18] MEDS: sodium chloride 0.9% 1,000 ML 125 ML IV (17:17)
--- NOTE | 2023-11-18 18:26 | ECG_ITS ---
[facility] Test Date: 2023-11-18 Pat Name: Eliana Julio Department: Room: 105 Gender: Female Pulmonary Fellow: : 1980 Requested By: Tj Tello Order Number: [id number] Sylvia MD: Jeronimo Cortez M.D. Measurements Intervals [place] Rate: 100 P: 31 PA: 183 QRS: -25 QRSD: 92 T: 47 QT: 330 QTc: 427 Interpretive Statements SINUS TACHYCARDIA BORDERLINE LEFT AXIS DEVIATION [QRS AXIS < -20] NONSPECIFIC T-WAVE ABNORMALITY Compared to ECG 11/18/2023 15:07:23 T-wave abnormality now present Myocardial infarct finding no longer present Electronically Signed On 11-18-2023 19:01:48 [employer] SELECTOR by Jeronimo Cortez M.D. [id number]
[2023-11-18] MEDS: BuSPIRONE 10 mg Tablet PO (18:29)
[2023-11-18] MEDS: levETIRAcetam 250 MG in sodium chloride 0.9% (100 ml) 100 ML 430 MG IV (19:15)
[2023-11-18 20:09] LABS: Estmated Average Glucose 105; Hemoglobin A1C 5.3 % (4.0-6.0)
[2023-11-19] VITALS (14 sets, daily range): BP systolic 111–132; BP diastolic 64–82; PULSE 52–92; RESP 16–22; TEMP 36.4–37.1; O2SAT 92–100
[2023-11-19] MEDS: albuterol 2.5 mg/3 mL Neb INHALATION ×5 (00:25→20:55)
[2023-11-19] MEDS: sodium chloride 0.9% 1,000 ML 125 ML IV ×2 (01:17→09:37)
[2023-11-19 04:50] LABS: Basophils % 0.2 %; Hematocrit 36.4 % (36-47); Lymphocytes # 0.5 10^3/uL (0.8-4.8); Lymphocytes % 11.8 %; Mean Corpuscular HGB Conc 32.7 g/dL (30-55); Mean Corpuscular Hemoglobin 28.7 pg (27-33); Mean Corpuscular Volume 87.9 fl (85-98); Mean Platelet Volume 8.6 fL (7.4-10.4); Monocytes # 0.5 10^3/uL (0.2-0.9); Monocytes % 11.6 %; Neutrophils # 3.34 10^3/uL (1.8-7.7); Neutrophils % 75.9 %; Nucleated Red Blood Cells % 0 %; Platelet Count 258 10^3/cmm (157-399); Red Blood Count 4.14 10^6/uL (3.85-5.65); Red Cell Distribution Width 14.4 % (12.1-15.1)
[2023-11-19 05:16] LABS: Alanine Aminotransferase 10 U/L (0-33); Albumin Level 3.8 g/dL (3.5-5.2); Alkaline Phosphatase 67 U/L (35-105); Anion Gap 13.8 (5-19); Aspartate Amino Transferase 15 U/L (0-32); Blood Urea Nitrogen 7 mg/dL (6-20); Calcium 8.5 mg/dL (8.5-10.5); Carbon Dioxide 23 mmol/L (22-29); Chloride 105 mmol/L (98-107); Globulin 2.7 g/dL (1.3-4.6); Glomerular Filtration Rate 240.6 mL/min (90-130); Glucose 87 mg/dL (65-115); Magnesium 2.2 mg/dL (1.7-2.3); Osmolality Calculated 283 mOsm/kg (285-295); Potassium 3.8 mmol/L (3.5-5.1); Sodium 138 mmol/L (136-145); Total Bilirubin 0.2 mg/dL (0.15-1.2); Total Protein 6.5 g/dL (6.6-8.7)
[2023-11-19] MEDS: venlafaxine ER (24HR) 75 mg Capsule 225 MG PO (07:44)
[2023-11-19] MEDS: ondansetron 4 MG Tablet PO ×2 (07:44→18:14)
[2023-11-19] MEDS: BuSPIRONE 10 mg Tablet PO ×2 (07:44→18:15)
[2023-11-19] MEDS: pantoprazole DR 40 mg Tablet PO ×2 (07:44→18:15)
[2023-11-19] MEDS: levETIRAcetam 250 MG in sodium chloride 0.9% (100 ml) 100 ML 430 MG IV (07:45)
[2023-11-19] MEDS: budesonide 0.5 mg/2 mL Neb INHALATION ×2 (08:06→20:55)
[2023-11-19 10:29] LABS: Levetiracetam Immunoassy <2.0 mcg/mL (6.0-46.0)
[2023-11-19 14:30] LABS: Adenovirus Not Detected (NOT DETECT); Chlamydia Pneumoniae Not Detected (NOT DETECT); Coronavirus 229E,HKU1,NL63,OC4 Not Detected (NOT DETECT); Human Metapneumovirus Not Detected (NOT DETECT); Human Rhinovirus/Enterovirus Not Detected (NOT DETECT); Influenza A Not Detected (NOT DETECT); Influenza A H1 Not Detected (NOT DETECT); Influenza A H1-2009 Not Detected (NOT DETECT); Influenza A H3 Not Detected (NOT DETECT); Influenza B Not Detected (NOT DETECT); Mycoplasma Pneumoniae Not Detected (NOT DETECT); Parainfluenza Virus Type 1 Not Detected (NOT DETECT); Parainfluenza Virus Type 2 Not Detected (NOT DETECT); Parainfluenza Virus Type 3 Not Detected (NOT DETECT); Parainfluenza Virus Type 4 Not Detected (NOT DETECT); Respiratory Syncytial Virus A Not Detected (NOT DETECT); Respiratory Syncytial Virus B Not Detected (NOT DETECT); SARS-COV-2 Not Detected (NOT DETECT)
[2023-11-19] MEDS: acetaminophen 325 mg Tablet 650 MG PO (18:15)
[2023-11-19] MEDS: enoxaparin 40 mg/0.4 mL Syringe SUBCUT (18:16)
[2023-11-19] MEDS: levETIRAcetam 500 mg Tablet 250 MG PO (21:20)
--- NOTE | 2023-11-19 21:48 | P.PN_ITS ---
Subjective 2 Subjective: She is feeling slightly better. No additional vomiting. So far no bowel movement. Discussed caution about cannabinoid hyperemesis syndrome, verbalizes understanding, she states never uses edibles uses edibles if nauseated/for nausea control. Vitals/I&O/Wt Last Vital Signs Temp 98.2 F 11/19/23 20:00 Pulse 68 11/19/23 20:54 Resp 18 11/19/23 20:54 BP 126/76 11/19/23 20:00 Pulse Ox 93 11/19/23 20:54 O2 Del Method Room Air 11/19/23 20:54 O2 Flow Rate 0.5 11/19/23 11:41 11/19/23 11/19/23 11/19/23 06:59 14:59 22:59 Intake Total 1000 / 1369.05 1402.5 / 1402.5 1080 / 2482.5 Balance 1000 / 1369.05 1402.5 / 1402.5 1080 / 2482.5 Weight last 48 hrs Weight 92.986 kg Weight 92.986 kg Weight 92.986 kg Physical Exam 2 Const: COMMON NORMALS: patient oriented x3 and alert GENERAL APPEARANCE: c ooperative ORIENTATION/CONSCIOUSNESS: Yes awake OTHER: Convalescing. HENMT: COMMON NORMALS: oropharynx normal Neck/C-Spine: COMMON NORMALS: no JVD Resp: COMMON NORMALS: normal respiratory effort and clear to auscultation bilaterally AUSCULTATION: clear to auscultation bilaterally Cardio: COMMON NORMALS: no JVD, regular rhythm, S1 normal heart sound present, S2 normal heart sound present and No murmurs present (Cardio) RATE: t achycardic RHYTHM: regular rhythm HEART SOUNDS: S1 normal heart sound present and S2 normal heart sound present GI: COMMON NORMALS: Normal to inspection, nondistended, normoactive bowel sounds present, Soft to palpation and non-tender PALPATION: Yes Soft to palpation Extremity: COMMON NORMALS: no joint enlargement and no pedal edema Neuro: COMMON NORMALS: patient oriented x3 and moves all extremities S ENSORIUM/ORIENTATION: Yes alert Skin: COMMON NORMALS: no rashes or lesions noted GENERAL SKIN EXAM: no rashes or lesions noted Data 11/19/23 03:50 11/19/23 03:50 A&P Assessment and plan (1) Nausea vomiting and diarrhea: Symptoms so far improving. Reviewed vitals, CBC, CMP, magnesium, obtained respiratory viral panel. Continue IV hydration. Trial of clear liquid diet. Collect stool studies if able. Discussed with special education case manager. Reviewed anion gap, bicarb, normalized. Acidosis resolved. Has been unwell for the past 10 days since last Thursday, her father has been ill as well. Has not been taking her medications for about a week as has not been able to keep them down. Unclear cause of her symptoms, possible infectious gastroenteritis. Reviewed CT abdomen pelvis, unremarkable. She otherwise is afebrile, low-grade temp 99.8 in the ER. Without leukocytosis, does report some subjective fever initially also having some cough. Will check respiratory viral panel. Discussed with her we will also check stool studies including C. difficile. ABG reviewed, noted contraction alkalosis with compensatory respiratory acidosis. Lactic acidosis 3.5. Otherwise not fitting sepsis criteria. For now hold off on antibiotic. stool studies for C. difficile, Salmonella, Shigella, Campy. Her presentation was likely also combination with withdrawal from at least on her medications that she has not been able to take them/could not keep them down for a week. Additionally UDS reviewed, noted positive for marijuana. Discussed caution for cannabinoid hyperemesis syndrome. Past history of bowel obstructions with multiple prior abdominal surgeries, CT abdomen pelvis reviewed, no sign of obstruction. Reports chronic constipation due to his does not take opioids. Has bowel movements maybe twice a month. Zofran as needed. PPI. IV fluid. Lovenox VT prophylaxis. (2) Tachycardia: Reviewed vitals, sinus tachycardia resolved. Suspected combination of dehydration as well as withdrawal from her medications she has not been able to tolerate. Trial of oral intake. Continue IV Keppra for now. Sinus tachycardia, no obvious cause, he is dehydrated, possibly withdrawal from her medications. Reports some symptoms of metabolic encephalopathy with some hallucinations versus dreams. Reviewed EKG, first EKG is reporting atrial flutter but computer on my review not obvious flutter, reviewing other 2 EKGs again sinus tachycardia not obvious flutter, although baseline is jagged with some mild tremor. Discussed with cardiology, they will review EKG to see if may be underlying atrial flutter. No signs of serotonin syndrome. On review of CTA no PE. Troponin reviewed, WNL. No suggestion of acute ischemia. Monitor on telemetry. Noted hypomagnesemia on review of magnesium, replace. Reviewed TSH. Plan Hypomagnesemia: Having leg cramps. Replaced. Recheck magnesium. Epilepsy, Keppra IV. Trigeminal neuralgia, venlafaxine. ould not tolerate Topamax.It was discontinued. chronic pain syndrome, Continue venlafaxine. She does not take opioids. Asthma, Not in exacerbation. Albuterol neb as needed. CVA, Migraine, Multiple past abdominal surgeries, History of bowel obstruction No evidence of obstruction currently. Attestations 2 Medical Necessity Statement*: Continue hospitalization for assessment and management of recurrent nausea and vomiting, dehydration, trial of oral intake, trial of tolerance of oral medications in a lady with underlying multiple comorbidities including epilepsy. and High MDM includes amount and/or complexity of data reviewed/ordered [ resulted lab(s)/test(s), ordered lab(s)/test(s) and other healthcare professional discussion] as documented Diagnoses Nausea vomiting and diarrhea R11.2; R19.7 Tachycardia R00.0
[2023-11-20] VITALS (16 sets, daily range): BP systolic 108–133; BP diastolic 72–86; PULSE 60–86; RESP 12–31; TEMP 36.5–36.7; O2SAT 92–99; BMI 32.1
[2023-11-20] MEDS: albuterol 2.5 mg/3 mL Neb INHALATION ×4 (01:56→21:09)
[2023-11-20] MEDS: acetaminophen 325 mg Tablet 650 MG PO ×2 (02:14→09:08)
[2023-11-20] MEDS: ondansetron 4 MG Tablet PO ×3 (03:03→20:29)
[2023-11-20 04:06] LABS: Eosinophils # 0.1 10^3/uL (0.0-0.8); Eosinophils % 2.9 %; Hematocrit 36.7 % (36-47); Lymphocytes % 32.4 %; Mean Corpuscular HGB Conc 32.4 g/dL (30-55); Mean Corpuscular Hemoglobin 29.2 pg (27-33); Mean Platelet Volume 9.1 fL (7.4-10.4); Monocytes # 0.4 10^3/uL (0.2-0.9); Monocytes % 11.4 %; Neutrophils # 1.63 10^3/uL (1.8-7.7); Neutrophils % 51.7 %; Nucleated Red Blood Cells % 0 %; Platelet Count 208 10^3/cmm (157-399); Red Blood Count 4.08 10^6/uL (3.85-5.65); Red Cell Distribution Width 14.6 % (12.1-15.1); White Blood Count 3.15 10^3/uL (3.29-11.43)
--- NOTE | 2023-11-20 04:09 | PC.NURSE ---
Spoke to Dr. Anderson about patient not having IV access. New access was obtained, flushed appropriately and had blood return. Patient asked for new access to be removed due to pain. IV Keppra due at 1900, Dr. Anderson gave orders to resume PO Keppra. Patient tolerated PO medication well.
[2023-11-20 04:51] LABS: Albumin Level 3.5 g/dL (3.5-5.2); Alkaline Phosphatase 62 U/L (35-105); Blood Urea Nitrogen 8 mg/dL (6-20); Calcium 8.6 mg/dL (8.5-10.5); Carbon Dioxide 21 mmol/L (22-29); Chloride 107 mmol/L (98-107); Globulin 2.7 g/dL (1.3-4.6); Glomerular Filtration Rate 172.6 mL/min (90-130); Glucose 87 mg/dL (65-115); Magnesium 1.9 mg/dL (1.7-2.3); Osmolality Calculated 288 mOsm/kg (285-295); Sodium 140 mmol/L (136-145); Total Bilirubin 0.2 mg/dL (0.15-1.2); Total Protein 6.2 g/dL (6.6-8.7)
[2023-11-20 04:52] LABS: Anion Gap 15.4 (5-19); Potassium 3.4 mmol/L (3.5-5.1)
[2023-11-20 04:53] LABS: Alanine Aminotransferase 14 U/L (0-33); Aspartate Amino Transferase 25 U/L (0-32)
[2023-11-20] MEDS: pantoprazole DR 40 mg Tablet PO ×2 (09:01→17:41)
[2023-11-20] MEDS: BuSPIRONE 10 mg Tablet PO ×2 (09:01→17:42)
[2023-11-20] MEDS: levETIRAcetam 500 mg Tablet 250 MG PO ×2 (09:01→17:41)
[2023-11-20] MEDS: venlafaxine ER (24HR) 75 mg Capsule 225 MG PO (09:02)
[2023-11-20] MEDS: benzonatate 100 mg Capsule 200 MG PO ×2 (09:08→17:41)
[2023-11-20] MEDS: budesonide 0.5 mg/2 mL Neb INHALATION ×2 (09:12→21:09)
[2023-11-20] MEDS: potassium chloride ER 20 mEq Tablet 40 MEQ PO (11:16)
[2023-11-20] MEDS: magnesium sulfate premix 1 GM/100 ML PIGGYBACK IV (11:16)
[2023-11-20] MEDS: enoxaparin 40 mg/0.4 mL Syringe SUBCUT (17:42)
--- NOTE | 2023-11-20 23:25 | PM.PN ---
Subjective Subjective: She is not feeling better today. Still rather nauseated. Although has tolerated some of the clear liquid. Would like to try something more substantial. Feels very weak. Vitals/I&O/Wt Last Vital Signs Temp 97.9 F 11/20/23 20:00 Pulse 61 11/20/23 22:00 Resp 18 11/20/23 21:09 BP 133/72 11/20/23 20:00 Pulse Ox 98 11/20/23 21:09 O2 Del Method Nasal Cannula 11/20/23 21:09 O2 Flow Rate 2 11/20/23 21:09 11/20/23 11/20/23 11/21/23 14:59 22:59 06:59 Intake Total 100 / 100 Balance 100 / 100 Weight last 48 hrs Weight 92.986 kg Weight 92.986 kg Physical Exam Const: COMMON NORMALS: patient oriented x3 and alert GENERAL APPEARANCE: cooperative ORIENTATION/CONSCIOUSNESS: Yes awake OTHER: Weak HENMT: COMMON NORMALS: oropharynx normal Neck/C-Spine: COMMON NORMALS: no JVD Resp: COMMON NORMALS: normal respiratory effort and clear to auscultation bilaterally AUSCULTATION: clear to auscultation bilaterally Cardio: COMMON NORMALS: no JVD, regular rhythm, S1 normal heart sound present, S2 normal heart sound present and No murmurs present (Cardio) RATE: tachycardic RHYTHM: regular rhythm HEART SOUNDS: S1 normal heart sound present and S2 normal heart sound present GI: COMMON NORMALS: Normal to inspection, nondistended, normoactive bowel sounds present, Soft to palpation and non-tender PALPATION: Yes Soft to palpation Extremity: COMMON NORMALS: no joint enlargement and no pedal edema Neuro: COMMON NORMALS: patient oriented x3 and moves all extremities SENSORIUM/ORIENTATION: Yes alert Skin: COMMON NORMALS: no rashes or lesions noted GENERAL SKIN EXAM: no rashes or lesions noted Data 11/20/23 03:22 11/20/23 03:22 A&P Assessment and plan (1) Neutropenia: Reviewed WBC, reviewed absolute neutrophils. Noted acute moderate to severe neutropenia, 1600 ANC. Neutropenic precautions with reverse isolation. Peripheral smear. Reassess cell counts. (2) Nausea vomiting and diarrhea: Still having nausea, no vomiting so far. Tolerating some clear liquids. Would like to try some symptoms so far improving. GI soft diet. Requested. Reviewed vitals, CBC, CMP, magnesium, reviewed respiratory viral panel. replaced hypokalemia. Replaced hypomagnesemia. Stop IV fluid. Discussed with employment case manager. Reviewed anion gap, bicarb, normalized. Acidosis resolved. Has been unwell for the past 10 days since last Thursday, her father has been ill as well. Has not been taking her medications for about a week as has not been able to keep them down. Unclear cause of her symptoms, possible infectious gastroenteritis. Reviewed CT abdomen pelvis, unremarkable. She otherwise is afebrile, low-grade temp 99.8 in the ER. Without leukocytosis, does report some subjective fever initially also having some cough. Will check respiratory viral panel. Discussed with her we will also check stool studies including C. difficile. ABG reviewed, noted contraction alkalosis with compensatory respiratory acidosis. Lactic acidosis 3.5. Otherwise not fitting sepsis criteria. For now hold off on antibiotic. stool studies for C. difficile, Salmonella, Shigella, Campy. Her presentation was likely also combination with withdrawal from at least on her medications that she has not been able to take them/could not keep them down for a week. Additionally UDS reviewed, noted positive for marijuana. Discussed caution for cannabinoid hyperemesis syndrome. Past history of bowel obstructions with multiple prior abdominal surgeries, CT abdomen pelvis reviewed, no sign of obstruction. Reports chronic constipation due to his does not take opioids. Has bowel movements maybe twice a month. Zofran as needed. PPI. IV fluid. Lovenox VT prophylaxis. (3) Tachycardia: Reviewed vitals, sinus tachycardia resolved. Suspected combination of dehydration as well as withdrawal from her medications she has not been able to tolerate. Trial of oral intake. Continue IV Keppra for now. Sinus tachycardia, no obvious cause, he is dehydrated, possibly withdrawal from her medications. Reports some symptoms of metabolic encephalopathy with some hallucinations versus dreams. Reviewed EKG, first EKG is reporting atrial flutter but computer on my review not obvious flutter, reviewing other 2 EKGs again sinus tachycardia not obvious flutter, although baseline is jagged with some mild tremor. Discussed with cardiology, they will review EKG to see if may be underlying atrial flutter. No signs of serotonin syndrome. On review of CTA no PE. Troponin reviewed, WNL. No suggestion of acute ischemia. Monitor on telemetry. Noted hypomagnesemia on review of magnesium, replace. Reviewed TSH. Plan Hypomagnesemia: Resolved reviewed magnesium, given additional replacement. Recheck. Generalized weakness: Replace hypokalemia, hypomagnesemia. Additional assessment of neutropenia. Advance diet as tolerating. She is trying to mobilize today and see how she is doing in terms of getting around/walking. TSH reviewed, WNL. Reassess. Which is new. Will check chest x-ray. Possible fluid overload. Discussed with employment case manager. Epilepsy, Keppra IV. Trigeminal neuralgia, venlafaxine. ould not tolerate Topamax.It was discontinued. chronic pain syndrome, Continue venlafaxine. She does not take opioids. Asthma, Not in exacerbation. Albuterol neb as needed. CVA, Migraine, Multiple past abdominal surgeries, History of bowel obstruction No evidence of obstruction currently. She is noted needing 2 L of oxygen Attestations Medical Necessity Statement*: Continue admission for assessment and management of acute neutropenia, gastroenteritis with persistent nausea with slow improvement, generalized weakness. and High MDM includes amount and/or complexity of data reviewed/ordered [ resulted lab(s)/test(s), ordered lab(s)/test(s) and other healthcare professional discussion] as documented Diagnoses Neutropenia D70.9 Nausea vomiting and diarrhea R11.2; R19.7 Tachycardia R00.0
[2023-11-21] VITALS (14 sets, daily range): BP systolic 106–135; BP diastolic 68–84; PULSE 61–74; RESP 16–25; TEMP 36.4–36.9; O2SAT 92–98; BMI 33.9
[2023-11-21 04:02] LABS: Basophils % 0.5 %; Eosinophils # 0.1 10^3/uL (0.0-0.8); Eosinophils % 3.6 %; Hematocrit 36.7 % (36-47); Lymphocytes # 1.5 10^3/uL (0.8-4.8); Lymphocytes % 38.3 %; Mean Corpuscular HGB Conc 32.7 g/dL (30-55); Mean Corpuscular Hemoglobin 29.1 pg (27-33); Mean Corpuscular Volume 89.1 fl (85-98); Mean Platelet Volume 8.7 fL (7.4-10.4); Monocytes # 0.4 10^3/uL (0.2-0.9); Monocytes % 9.1 %; Neutrophils % 48.2 %; Nucleated Red Blood Cells % 0 %; Platelet Count 225 10^3/cmm (157-399); Red Blood Count 4.12 10^6/uL (3.85-5.65); Red Cell Distribution Width 14.6 % (12.1-15.1); White Blood Count 3.94 10^3/uL (3.29-11.43)
[2023-11-21] MEDS: albuterol 2.5 mg/3 mL Neb INHALATION ×4 (04:21→15:05)
[2023-11-21 04:31] LABS: Alanine Aminotransferase 12 U/L (0-33); Albumin Level 3.4 g/dL (3.5-5.2); Alkaline Phosphatase 58 U/L (35-105); Anion Gap 14.5 (5-19); Aspartate Amino Transferase 15 U/L (0-32); Blood Urea Nitrogen 3 mg/dL (6-20); Calcium 8.5 mg/dL (8.5-10.5); Carbon Dioxide 21 mmol/L (22-29); Chloride 107 mmol/L (98-107); Globulin 2.7 g/dL (1.3-4.6); Glomerular Filtration Rate 172.6 mL/min (90-130); Glucose 78 mg/dL (65-115); Magnesium 2.1 mg/dL (1.7-2.3); Osmolality Calculated 283 mOsm/kg (285-295); Potassium 3.5 mmol/L (3.5-5.1); Sodium 139 mmol/L (136-145); Total Bilirubin 0.2 mg/dL (0.15-1.2); Total Protein 6.1 g/dL (6.6-8.7)
--- NOTE | 2023-11-21 06:00 | XRR_ITS ---
PROCEDURE INFORMATION: Exam: XR Chest Exam date and time: 11/21/2023 7:09 AM Age: 43 years old Clinical indication: Shortness of breath; Additional info: Hypoxia TECHNIQUE: Imaging protocol: Radiologic exam of the chest. Views: 1 view. COMPARISON: CT angio chest PE protcl [id number] 11/18/2023 1:26 PM FINDINGS: Lungs: Small amount of new atelectasis and/or pneumonitis in the left lung base. Otherwise, unremarkable. Pleural spaces: Unremarkable. No pleural effusion. No pneumothorax. Heart/Mediastinum: Unremarkable. No cardiomegaly. Bones/joints: Unchanged moderate scoliosis.. XR/XR chest 1V portable [id number] IMPRESSION: Small amount of new atelectasis and/or pneumonitis left lung base.
[2023-11-21] MEDS: budesonide 0.5 mg/2 mL Neb INHALATION (08:14)
[2023-11-21] MEDS: levETIRAcetam 500 mg Tablet 250 MG PO (08:50)
[2023-11-21] MEDS: venlafaxine ER (24HR) 75 mg Capsule 225 MG PO (08:50)
[2023-11-21] MEDS: pantoprazole DR 40 mg Tablet PO (08:51)
[2023-11-21] MEDS: BuSPIRONE 10 mg Tablet PO (08:52)
[2023-11-21] MEDS: ondansetron 4 MG Tablet PO (08:57)
[2023-11-21] MEDS: levoFLOXacin 750 mg Tablet PO (10:37)
--- NOTE | 2023-11-21 13:26 | P.DS_ITS ---
Discharge Providers Date of Admission: 11/18/23 15:13 Date of Discharge: November 21, 2023 Attending Provider at Admission: Jm Balderrama Attending Provider at Discharge: Jm Balderrama Primary Care Provider: Marcos Dumas MD Diagnoses at Discharge Discharge Diagnosis (1) Neutropenia: Status: Acute (2) Nausea vomiting and diarrhea: Status: Acute (3) Tachycardia: Status: Acute Reason for Visit Reason for Visit: Vomiting, SOB Brief History: 43-year-old lady with history of epileps y, trigeminal neuralgia, chronic pain syndrome, asthma, CVA, migraine, multiple past abdominal surgeries, history of bowel obstruction, has been feeling unwell for the last 10 days since last Thursday. States she was initially coughing, but also having some nausea, has had recurrent vomiting, diarrhea, now mucus, denies hematemesis or hematochezia. Has been having some subjective fevers. Cough has subsided. Her father who lives with her was ill around the same time and is following up on the outpatient side. She is not sure if he has been diagnosed with anything. In ER she is found with sinus tachycardia up as high as 150s. Lactic acid 3.5. Magnesium 1.6. She does report some lower extremity cramps. CT abdomen pelvis without acute pathology, nonobstructive renal calculi, fatty change of liver, old surgical changes. CT angiogram chest without PE or other acute disease. She reports about a month ago was started on Topamax but could not tolerate the medication with multiple adverse effects at that time her Keppra dose was half, due to intolerance Topamax was discontinued and previous Keppra dose was restored. Denies any other medication changes. Hospital Course Hospital Course She was admitted for assessment management of persistent nausea and vomiting, and ability to tolerate food and drink or medications, with dehydration, was treated with IV hydration, antiemetics, lactic acidosis on presentation 3.5 resolved. Hypomagnesemia was replaced. Stool studies were requested, but there was no further diarrhea to collect a sample. Vomiting resolved. Diet gradually advanced. Respiratory viral panel was negative. UA not suggestive of UTI. She was resumed on her medications including Keppra by IV while she was here, venlafaxine was resumed by mouth. Persistent sinus tachycardia resolved. She had transient neutropenia WBC 3.15, ANC 1.63 while recovering on 11/20 which has resolved today. Please follow-up blood counts, chemistry and magnesium. On CT abdomen pelvis incidentally found fatty liver changes and nonobstructive right kidney stone. Please follow-up. On 1 L oxygen by nasal cannula, chest x-ray assessed showed small amount of new atelectasis and/or pneumonitis of the left lung base. She was provided with and instructed on symptom spirometer, and discussed also starting on a course of Levaquin for now with possible aspiration pneumonia and she has still been having some fatigue, please reassess for continued improvement/resolution. Physical Exam Const: COMMON NORMALS: patient oriented x3 and alert GENERAL APPEARANCE: cooperative ORIENTATION/CONSCIOUSNESS: Yes awake HENMT: COMMON NORMALS: oropharynx normal Neck/C-Spine: COMMON NORMALS: no JVD Resp: COMMON NORMALS: normal respiratory effort and clear to auscultation bilaterally AUSCULTATION: clear to auscultation bilaterally Cardio: COMMON NORMALS: no JVD, regular rhythm, S1 normal heart sound present, S2 normal heart sound present and No murmurs present (Cardio) RHYTHM: regular rhythm HEART SOUNDS: S1 normal heart sound present and S2 normal heart sound present GI: COMMON NORMALS: Normal to inspection, nondistended, normoactive bowel sounds present, Soft to palpation and non-tender PALPATION: Yes Soft to palpation Extremity: COMMON NORMALS: no joint enlargement and no pedal edema Neuro: COMMON NORMALS: patient oriented x3 and moves all extremities SENSORIUM/ORIENTATION: Yes alert Skin: COMMON NORMALS: no rashes or lesions noted GENERAL SKIN EXAM: no rashes or lesions noted Discharge Data Studies Completed and Pending Completed Studies During Hospitalization Category Date Time Status CT abdomen pelvis wo con [id number] Stat Cat Scan 11/18/23 09:[address] angio chest PE protcl [id number] Stat Cat Scan 11/18/23 12:51 Completed XR chest 1V portable [id number] Routine Exams 11/21/23 06:00 Completed XR chest 1V portable [id number] Stat Exams 11/18/23 12:51 Completed Pending at discharge Category Date Time Status Clostridium Difficile PCR Routine Lab 11/18/23 15:53 Uncollected Stool Culture - Enteric [Salmonella / Shigella / Campy] Lab 11/18/23 15:53 Ordered Routine Radiology Impressions Abdomen/Pelvis CT 11/18/23 09:17 IMPRESSION: 1. No acute pathology. 2. Minor findings including nonobstructive right renal calculus, fatty change of the liver and features of prior surgery as above. Chest CTA 11/18/23 12:51 IMPRESSION: No Evidence of pulmonary embolism or other acute chest disease. Chest X-Ray 11/21/23 06:00 IMPRESSION: Small amount of new atelectasis and/or pneumonitis left lung base. Laboratory Results WBC 3.94 10^3/uL (3.29-11.43) 11/21/23 03:17 RBC 4.12 10^6/uL (3.85-5.65) 11/21/23 03:17 Hgb 12.00 g/dL (11.27-16.99) 11/21/23 03:17 Hct 36.7 % (36-47) 11/21/23 03:17 MCV 89.1 fl (85-98) 11/21/23 03:17 MCH 29.1 pg (27-33) 11/21/23 03:17 MCHC 32.7 g/dL (30-55) 11/21/23 03:17 RDW 14.6 % (12.1-15.1) 11/21/23 03:17 Plt Count 225 10^3/cmm (157-399) 11/21/23 03:17 MPV 8.7 fL (7.4-10.4) 11/21/23 03:17 Neut % (Auto) 48.2 % 11/21/23 03:17 Lymph % (Auto) 38.3 % 11/21/23 03:17 [place] % (Auto) 9.1 % 11/21/23 03:17 Eos % (Auto) 3.6 % 11/21/23 03:17 Baso % (Auto) 0.5 % 11/21/23 03:17 Neut # (Auto) 1.90 10^3/uL (1.8-7.7) 11/21/23 03:17 Lymph # (Auto) 1.5 10^3/uL (0.8-4.8) 11/21/23 03:17 [place] # (Auto) 0.4 10^3/uL (0.2-0.9) 11/21/23 03:17 Eos # (Auto) 0.1 10^3/uL (0.0-0.8) 11/21/23 03:17 Baso # (Auto) 0.0 10^3/uL (0.0-0.1) 11/21/23 03:17 Nucleated RBC % (auto) 0 % 11/21/23 03:17 Nucleated RBCs # 0.0 /100WBC 11/21/23 03:17 Specimen Type Arterial 11/18/23 09:10 Sample Site Radial, right 11/18/23 09:10 ABG pH 7.46 (7.35-7.45) H 11/18/23 09:10 ABG pCO2 29.0 mmHg (35-45) L 11/18/23 09:10 ABG pO2 60.4 mmHg (80.0-100.0) L 11/18/23 09:10 ABG PO2/FiO2 Ratio 0 11/18/23 09:10 ABG HCO3 20.6 mmol/L (22-26) L 11/18/23 09:10 ABG O2 Saturation 93.7 11/18/23 09:10 ABG Base Excess -2.0 mmol/L (-2.0-2.0) 11/18/23 09:10 Portillo Test Pos 11/18/23 09:10 A-a O2 Gradient 7.0 mmHg (5-10) 11/18/23 09:10 Hematocrit 44.2 % (37-47) 11/18/23 09:10 Hgb O2 Saturation 92.6 % (95-100) L 11/18/23 09:10 Carboxyhemoglobin 0.9 %THgb (0.4-20.1) 11/18/23 09:10 Methemoglobin 0.2 % (0.4-1.5) L 11/18/23 09:10 Total Hemoglobin 14.4 g/dL (12-16) 11/18/23 09:10 Sodium 141.0 mmol/L (131-143) 11/18/23 09:10 Potassium 3.5 mmol/L (3.5-5.0) 11/18/23 09:10 Glucose 138.0 mg/dL (70-115) H 11/18/23 09:10 Ionized Calcium 1.2 mmol/L (1.1-1.4) 11/18/23 09:10 O2 Delivery Device Room air 11/18/23 09:10 FiO2 21.0 % 11/18/23 09:10 Doll Wig Maker Rooted Hair ID Karenro 11/18/23 09:10 Sodium 139 mmol/L (136-145) 11/21/23 03:17 Potassium 3.5 mmol/L (3.5-5.1) 11/21/23 03:17 Chloride 107 mmol/L (98-107) 11/21/23 03:17 Carbon Dioxide 21 mmol/L (22-29) L 11/21/23 03:17 Anion Gap 14.5 (5-19) 11/21/23 03:17 BUN 3 mg/dL (6-20) L 11/21/23 03:17 Creatinine 0.4 mg/dL (0.5-0.9) L 11/21/23 03:17 GFR Calculation 172.6 mL/min (90-130) H 11/21/23 03:17 Glucose 78 mg/dL (65-115) 11/21/23 03:17 Estimat Average Glucose 105 11/18/23 17:44 Hemoglobin A1c 5.3 % (4.0-6.0) 11/18/23 17:44 Calculated Osmolality 283 mOsm/kg (285-295) L 11/21/23 03:17 Lactic Acid 3.5 mmol/L (0.5-2.2) H 11/18/23 09:17 Lactic Acid (Sepsis) 1.9 mmol/L (0.5-2.2) 11/18/23 12:21 Calcium 8.5 mg/dL (8.5-10.5) 11/21/23 03:17 Magnesium 2.1 mg/dL (1.7-2.3) 11/21/23 03:17 Total Bilirubin 0.2 mg/dL (0.15-1.2) 11/21/23 03:17 AST 15 U/L (0-32) 11/21/23 03:17 ALT 12 U/L (0-33) 11/21/23 03:17 Alkaline Phosphatase 58 U/L (35-105) 11/21/23 03:17 Troponin T Baseline < 6 ng/L (0-10) 11/18/23 09:17 Troponin T 120 Minute 6.00 ng/L (0-10) 11/18/23 13:13 Delta Troponin T 0.12743 ABS# (0-10) 11/18/23 13:13 Troponin T Hi Sens 6Hr 8.78 ng/L (0-10) 11/18/23 15:12 Troponin T Hi Sens 6Hr Delta 2.51385 ng/L (0-12) 11/18/23 15:12 Total Protein 6.1 g/dL (6.6-8.7) L 11/21/23 03:17 Albumin 3.4 g/dL (3.5-5.2) L 11/21/23 03:17 Globulin 2.7 g/dL (1.3-4.6) 11/21/23 03:17 Lipase 23 U/L (13-60) 11/18/23 09:17 TSH 0.48 uIU/mL (0.27-4.20) 11/18/23 09:17 Urine Color Yellow (Yellow) 11/18/23 10:57 Urine Appearance Clear (CLEAR) 11/18/23 10:57 Urine pH 8 (5-7) H 11/18/23 10:57 Ur Specific Gaines 1.010 (1.005-1.030) 11/18/23 10:57 Urine Protein Neg (Negative) 11/18/23 10:57 Urine Glucose (UA) Norm (Normal) 11/18/23 10:57 Urine Ketones 1+ (Negative) H 11/18/23 10:57 Urine Blood Neg (Negative) 11/18/23 10:57 Urine Nitrate Negative (Negative) 11/18/23 10:57 Urine Bilirubin Neg (Negative) 11/18/23 10:57 Prot Sulfosalicylic Acd Negative (Negative) 11/18/23 10:57 Urine Urobilinogen 1 mg/dL (Negative) H 11/18/23 10:57 Ur Leukocyte Esterase Negative (Negative) 11/18/23 10:57 Nasal Influ A H1 2008 PCR Not detected (NOT DETECT) 11/19/23 12:15 Urine Opiates Screen Negative ng/mL (Negative) 11/18/23 15:45 Ur Barbiturates Screen Negative ng/mL (Negative) 11/18/23 15:45 Levetiracetam <2.0 mcg/mL (6.0-46.0) L 11/18/23 09:17 Ur Phencyclidine Scrn Negative ng/mL (Negative) 11/18/23 15:45 Ur Amphetamines Screen Negative ng/mL (Negative) 11/18/23 15:45 U Benzodiazepines Scrn Positive ng/mL (Negative) H 11/18/23 15:45 Urine Cocaine Screen Negative ng/mL (Negative) 11/18/23 15:45 U Marijuana (THC) Screen Positive ng/mL (Negative) H 11/18/23 15:45 Serum Ketones Negative (Negative) 11/18/23 09:17 Adenovirus (PCR) Not detected (NOT DETECT) 11/19/23 12:15 C. pneumoniae DNA (PCR) Not detected (NOT DETECT) 11/19/23 12:15 Coronavirus 229E (PCR) Not detected (NOT DETECT) 11/19/23 12:15 Human Metapneumovir PCR Not detected (NOT DETECT) 11/19/23 12:15 Influenza A (H1) PCR Not detected (NOT DETECT) 11/19/23 12:15 Influenza A (H3) PCR Not detected (NOT DETECT) 11/19/23 12:15 Influenza Type A Ag negative (Negative) 11/18/23 14:14 Influenza Type A (PCR) Not detected (NOT DETECT) 11/19/23 12:15 Influenza Type B Ag negative (Negative) 11/18/23 14:14 Influenza Type B (PCR) Not detected (NOT DETECT) 11/19/23 12:15 M. pneumoniae (PCR) Not detected (NOT DETECT) 11/19/23 12:15 Parainfluenza 1 (PCR) Not detected (NOT DETECT) 11/19/23 12:15 Parainfluenza 2 (PCR) Not detected (NOT DETECT) 11/19/23 12:15 Parainfluenza 3 (PCR) Not detected (NOT DETECT) 11/19/23 12:15 Parainfluenza 4 (PCR) Not detected (NOT DETECT) 11/19/23 12:15 RSV Type A (PCR) Not detected (NOT DETECT) 11/19/23 12:15 RSV Type B (PCR) Not detected (NOT DETECT) 11/19/23 12:15 Entero/Rhino (PCR) Not detected (NOT DETECT) 11/19/23 12:15 SARS-CoV-2 (PCR) Not detected (NOT DETECT) 11/19/23 12:15 Vitals Last Vital Signs Temp 97.6 F 11/21/23 11:36 Pulse 74 11/21/23 11:36 Resp 22 H 11/21/23 11:36 BP 135/76 11/21/23 11:36 Pulse Ox 97 11/21/23 11:36 O2 Del Method Nasal Cannula 11/21/23 11:36 O2 Flow Rate 1 11/21/23 11:28 Discharge Plan Discharge Patient Disposition: Home Condition: Stable Prescriptions: New ondansetron HCl 4 mg Tablet 4 mg PO Q8H PRN (Reason: Nausea And Vomiting) Qty: 10 0RF levofloxacin 750 mg Tablet 750 mg PO DAILY Qty: 6 0RF Continued ondansetron 4 mg tablet,disintegrating 4 mg PO Q8H PRN (Reason: Nausea And Vomiting) omeprazole 40 mg capsule,delayed release(DR/EC) 40 mg PO BID diphenhydramine HCl [Benadryl] 25 mg capsule 50 mg PO BID PRN (Reason: Allergic Symptoms) multivitamin Tablet 1 tab PO DAILY fluticasone propion-salmeterol [Advair Diskus] 250-50 mcg/dose blister with device 1 inh INHALATION BID fluconazole 150 mg tablet 150 mg PO Q7D Rx Instructions: on epinephrine [EpiPen 2-Alexy] 0.3 mg/0.3 mL Auto-Injector 0.3 mg IM Q4H PRN (Reason: Allergic Reaction) venlafaxine 225 mg tablet extended release 24hr 225 mg PO QAM Tylenol Sinus Severe 5-325-200 mg Tablet 2 tab PO Q4H PRN (Reason: Sinus Symptoms) cholecalciferol (vitamin D3) [Vitamin D3] 125 mcg (5,000 unit) Tablet 125 mcg PO DAILY Dulera 200-5 mcg/actuation Hfa Aerosol Inhaler 2 puff INHALATION BID benzonatate 200 mg capsule 200 mg PO Q8H PRN (Reason: Cough) hydrocodone-acetaminophen 5-325 mg tablet 1 tab PO Q4H PRN (Reason: Pain, Moderate) Elidel 1 % cream 1 applic TOPICAL BID PRN (Reason: unknown) triamcinolone acetonide 0.1 % cream See Rx Instructions .ROUTE .COMPLEX Rx Instructions: APPLY TWICE DAILY TO RASH ON HANDS NO MORE THAN 2 WEEKS PER MONTH NEEDED levetiracetam 250 mg tablet 250 mg PO BID buspirone 10 mg tablet 10 mg PO BID metoclopramide HCl 10 mg tablet 10 mg PO TID PRN (Reason: nausea/emesis) Discharge Orders: Discharge Order (Routine); Ordered 11/21/23 Ordered By: Jm Balderrama Referrals: Marcos Dumas MD [Primary Care Provider] - 11/23/23 1:30 pm Discharge Diet: Advance as tolerated, Low Salt and GI Soft Patient Instructions: Ondansetron (By mouth) (Zofran, Zofran ODT, Zuplenz), Levofloxacin (By mouth) (Levaquin, Levaquin Leva-alexy), Dehydration (GEN), Kidney Stones (GEN), Gastroenteritis (GEN), Non-Alcoholic Fatty Liver Disease (GEN), Neutropenia (DC), Opioid Safety Activity Restrictions/Additional Instructions: Follow-up with your primary doctor for reassessment after gastroenteritis, aspiration pneumonitis, possible early pneumonia. Return to the hospital in case of any worsening or new concerning symptoms. Your magnesium was low and was replaced in the hospital. Your primary doctor follow-up your chemistry including magnesium at next visit. You transiently had decreased white blood cell/neutrophil count while recovering from her condition. This has returned to normal. Please have your primary doctor follow-up your blood counts to reassess. Follow-up with your primary doctor regarding nonobstructive right kidney stone as well as incidentally seen fatty infiltration of the liver. Discharge Attestations Time Spent in Discharge Care*: greater than 30 min Quality Metrics Clinical Quality Measures [ No reported AMI, CVA or VTE this stay] Coding Level of Care Code 22994 Total time (in minutes) for Discharge: 40 Diagnoses Neutropenia D70.9 Nausea vomiting and diarrhea R11.2; R19.7 Tachycardia R00.0
== END 2023-11-21 16:40 | disposition home or self-care (01) ==
LOC: ER 10:29 → CSU 11-19 01:02
PROVIDERS: Admitting Provider Internal Medicine; Emergency Provider Family Medicine; PCP Family Medicine; Visit Provider Internal Medicine
DX: D70.9 Neutropenia, unspecified (principal); R11.2 Nausea with vomiting, unspecified; R19.7 Diarrhea, unspecified; R00.0 Tachycardia, unspecified; J45.909 Unspecified asthma, uncomplicated; E86.0 Dehydration; K59.00 Constipation, unspecified; F15.23 Other stimulant dependence with withdrawal; E83.42 Hypomagnesemia; G40.909 Epilepsy, unspecified, not intractable, without status epilepticus; G50.0 Trigeminal neuralgia; G89.4 Chronic pain syndrome; Z98.890 Other specified postprocedural states; R05.9 Cough, unspecified; R06.02 Shortness of breath; K44.9 Diaphragmatic hernia without obstruction or gangrene; Z86.73 Personal history of transient ischemic attack (TIA), and cerebral infarction without residual deficits
CPT/HCPCS: 36415; 36600; 71045; 71275; 74176; 80051; 80053; 80177; 80306; 81003; 82009; 82330; 82805; 83036; 83605; 83690; 83735; 84443; 84484; 85025; 87486; 87581; 87633; 87804; 93005; 94640; 94760; 96365; 96367; 96372; 96375; 96376; 99285; C9113; G0378; J1100; J1650; J1953; J2060; J2405; J3475; J7030; J7613; J7626; Q0162; Q9967

== ENCOUNTER 2024-01-26 08:56 | Outpatient (CLI) | payer MEDICAID, SELFPAY ==
--- NOTE | 2024-01-26 09:00 | CT_ITS ---
WS: [email or web address] CT HEAD TECHNIQUE: Noncontrast CT of the head obtained from the skullbase to the vertex. CLINICAL INFORMATION: G50.0 - Trigeminal neuralgia COMPARISON: None. DLP: 1100.[address] scans at [facility] use at least one of these dose optimization techniques: automated e xposure control; mA and/or kV adjustment per patient size (includes targeted exams where dose is matc hed to clinical indication); or iterative reconstruction. FINDINGS: No evidence of intracranial hemorrhage or mass effect. Ventricular system and basal cisterns are mckenzie nt. No extra-axial fluid collections. No evidence of mass or mass effect. Normal tomas-white different iation. Area of increased attenuation LEFT parietal lobe with a small calvarial defect likely inciden wilfrido prominent cortical vessel or venous malformation. Mild mucosal thickening in the ethmoid air cells. Mastoid air cells are well aerated. Normal posterio r nasopharynx. IMPRESSION: 1. No evidence of intracranial hemorrhage or mass effect. 2. Area of increased attenuation LEFT parietal lobe with a small calvarial defect likely incidental prominent cortical vessel or benign venous malformation. 3. MRI of the head without and with gadolinium enhancement with IAC protocol would be more sensitive for evaluation of trigeminal neuralgia.
== END 2024-01-26 08:57 | disposition home or self-care (01) ==
LOC: RAD 08:57
PROVIDERS: PCP Family Medicine; Visit Provider Specialist
DX: G50.0 Trigeminal neuralgia (principal); R56.9 Unspecified convulsions; G43.111 Migraine with aura, intractable, with status migrainosus
CPT/HCPCS: 70450

== ENCOUNTER → 2024-01-28 17:15 | Outpatient (BNVA) | payer MEDICAID, SELFPAY | PROVIDERS: PCP Family Medicine; Visit Provider Specialist | DX: S43.006A Unspecified dislocation of unspecified shoulder joint, initial encounter (principal); R56.9 Unspecified convulsions; X58.XXXA Exposure to other specified factors, initial encounter | CPT/HCPCS: 73030 ==

== ENCOUNTER 2024-03-01 14:42 | Outpatient (CLI) | payer MEDICAID, SELFPAY ==
--- NOTE | 2024-03-01 14:50 | XR_ITS ---
WS: [email or web address] Exam: XR shoulder RT min 2V* [id number] Date/Time of Exam: 03/01/2024 2:53 PM Reason For Exam: PAIN IN R SHOULDER No fracture or dislocation. Soft tissues are unremarkable. The joints are preserved. IMPRESSION: 1. Negative RIGHT shoulder.
--- NOTE | 2024-03-01 14:50 | XR_ITS ---
WS: [email or web address] Exam: XR hand RT min 3V* [id number] Date/Time of Exam: 03/01/2024 2:53 PM Reason For Exam: PAIN IN R HAND Findings: No fractures, soft tissue swelling, or unusual calcifications are noted. The hand shows normal bony alignment. There is no irregularity of the bony architecture. IMPRESSION: Normal RIGHT hand.
== END 2024-03-01 14:43 | disposition home or self-care (01) ==
LOC: RAD 14:47
PROVIDERS: PCP Family Medicine; Visit Provider Family Medicine
DX: M79.641 Pain in right hand (principal); M25.511 Pain in right shoulder
CPT/HCPCS: 73030; 73130

== ENCOUNTER 2024-10-11 10:23 | Outpatient (CLI) | payer MEDICAID, SELFPAY ==
--- NOTE | 2024-10-11 10:28 | XRR_ITS ---
PROCEDURE INFORMATION: Exam: XR Left Shoulder Exam date and time: 10/11/2024 10:32 AM Age: 44 years old Clinical indication: Injury or trauma; Blunt trauma (contusions or hematomas); Left; Injury details: Recent falls , latest fall x2 weeks, anterior shoulder pain, and slightly limited rom; Prior surgery; Surgery date: 6+ months; Surgery type: Bicep tendon and bone spur; Additional info: Pain in left shoulder TECHNIQUE: Imaging protocol: Radiologic exam of the left shoulder. Views: 2 or more views. COMPARISON: CR XR chest 1V portable [id number] 11/21/2023 7:09 AM FINDINGS: Bones/joints: No acute fracture or dislocation. Mineralization is normal. Joint spacing and alignment are maintained. Mild spurring of the inferior glenoid. Mild acromioclavicular joint arthropathy. Mild dextroconvex spinal curvature. Soft tissues: Unremarkable. XR/XR shoulder LT min 2V* [id number] IMPRESSION: 1. No acute findings. 2. Mild left shoulder degenerative change.
== END 2024-10-11 10:24 | disposition home or self-care (01) ==
PROVIDERS: PCP Family Medicine; Visit Provider Family Medicine
DX: M25.512 Pain in left shoulder (principal); W19.XXXA Unspecified fall, initial encounter
CPT/HCPCS: 73030

== ENCOUNTER 2024-10-27 12:27 | Outpatient (CLI) | payer MEDICAID, SELFPAY ==
--- NOTE | 2024-10-27 12:30 | MM_ITS ---
WS: [email or web address] BILATERAL 3D TOMOSYNTHESIS DIGITAL DIAGNOSTIC MAMMOGRAPHY WITH CAD CLINICAL INFORMATION: BILAT BREAST LUMPS HISTORY: Bilateral breast pain and lumps COMPARISON: 2022 TECHNIQUE: Bilateral CC, MLO, and ML views. FINDINGS: The breasts are composed of heterogeneous fibroglandular density, which can limit the detection of sm all underlying mass lesions. Pain marker upper outer RIGHT breast. Pain markers LEFT breast at the 12 o'clock position and palpable marker outer LEFT breast. 7 mm ovoid nodule near the 12 o'clock positi on LEFT breast. No other suspicious underlying mammographic abnormalities. Ultrasound is pending. ULTRASOUND BREAST BILATERAL TECHNIQUE: Ultrasound bilateral breast focused area of concern. CLINICAL INFORMATION: BILAT BREAST LUMPS FINDINGS: RIGHT BREAST: Ultrasound RIGHT breast the 10 o'clock position patient directed. No suspicious abnorma lities in the area of concern RIGHT breast. LEFT BREAST: Ultrasound LEFT breast at the 9 o'clock position area of concern. No suspicious abnormal ities. At the 10 o'clock position is a tiny incidental cyst measuring 8 mm. Additional ovoid slightly complex cysts at the 11 o'clock position measuring 7 x 7 mm and 6 x 5 mm. Incidental ductal ectasia at the 12 o'clock position. No suspicious lesions to target for biopsy. No other suspicious findings. MM/MM diag BI tomosynthesis [id number] IMPRESSION: DENSITY: The breasts are heterogeneously dense, which may obscure small masses. BI-RADS: 2 - Benign FOLLOW UP: 1 Year Follow-up Recommend return to annual screening mammography.
== END 2024-10-27 12:28 | disposition home or self-care (01) ==
LOC: RAD 12:27
PROVIDERS: PCP Family Medicine; Visit Provider Family Medicine
DX: N60.12 Diffuse cystic mastopathy of left breast (principal); N60.42 Mammary duct ectasia of left breast
CPT/HCPCS: 76642; 77062; G0279

== ENCOUNTER → 2024-10-31 08:39 | Outpatient (BNVA) | payer MEDICAID, SELFPAY | PROVIDERS: PCP Family Medicine; Visit Provider Specialist | DX: M25.512 Pain in left shoulder (principal); G89.29 Other chronic pain; M19.112 Post-traumatic osteoarthritis, left shoulder | CPT/HCPCS: 73030 ==

== ENCOUNTER → 2024-11-01 13:54 | Outpatient (BNVA) | payer MEDICAID, SELFPAY | PROVIDERS: PCP Family Medicine; Visit Provider Orthopaedic Surgery | DX: M54.2 Cervicalgia (principal) | CPT/HCPCS: 72050 ==

== ENCOUNTER 2024-11-14 15:58 | Outpatient (CLI) | payer MEDICAID, SELFPAY ==
--- NOTE | 2024-11-14 16:00 | USCV_ITS ---
Eliana Julio Age: 44 Gender: F : 1980 Exam Date: 11/14/2024 16:04 Ordering Phys: Siobhan Pena MD Technologist: [employer] Exam Location: [facility] [place] Indication: convulsions Risk Factors: Previous Vascular Surgery: Right Brachial BP: / Left Brachial BP: / Right Left Velocity (cm/s) Spectral Plaque Velocity (cm/s) Spectral Plaque Syst/Diast Broadening Syst/Diast Broadening 85.40/ 27.10 Prox CCA 99.10 / 31.40 92.80/ 28.00 Mid CCA 105.60/ 29.70 79.80/ 33.20 Distal CCA 89.00 / 28.70 63.30/ 22.10 Prox ICA 28.60 / 16.20 68.20/ 29.70 Mid ICA 38.30 / 16.70 67.60/ 37.10 Distal ICA 51.70 / 23.50 64.00 ECA 98.40 0.80 ICA/CCA 0.30 Antegrade Vertebral Antegrade 53.90/ 19.80 cm/s 67.30/ 17.60 cm/s Tri Subclavian Tri 47.60 103.0 0 CONCLUSIONS Right ICA stenosis <50%. Mild atheromatous plaque right carotid bulb/ICA. Left ICA stenosis <50%. Mild atheromatous plaque left carotid bulb/ICA. Normal antegrade Doppler flow noted in the right vertebral artery. Normal antegrade Doppler flow noted in the left vertebral artery. Álvaro Powell MD (Electronically Signed) Final Date: 14 November 2024 17:05 S
== END 2024-11-14 15:59 | disposition home or self-care (01) ==
LOC: RAD 16:00
PROVIDERS: PCP Family Medicine; Visit Provider Specialist
DX: R56.9 Unspecified convulsions (principal); I65.23 Occlusion and stenosis of bilateral carotid arteries; R20.0 Anesthesia of skin; R20.2 Paresthesia of skin; G43.711 Chronic migraine without aura, intractable, with status migrainosus
CPT/HCPCS: 93880

== ENCOUNTER 2024-11-18 09:00 | Outpatient (CLI) | payer MEDICAID, SELFPAY ==
--- NOTE | 2024-11-18 09:00 | IR_ITS ---
WS: [email or web address] CERVICAL MYELOGRAM HISTORY: cervical pain COMPARISON: None available. FLUOROSCOPY TIME: 1min [id number] # of spot films: 2 Procedure, risks and complications were explained to the patient. Risks including bleeding, infection , headaches, allergic reaction and seizures. Consent has been obtained. With the patient in prone position the skin over the lumbar region is cleansed with ChloraPrep and an esthetized with lidocaine. 22-gauge spinal needle is inserted into the thecal sac at the appropriate level determined by fluoroscopy. Omnipaque 240; 12 ml is injected slowly under fluoroscopy with no co mplications. Needle bevel is perpendicular to the longitudinal fibers of the dura. Stylet is reinsert ed prior to removal of the needle. Patient tolerated the procedure well. Patient will proceed to CT f or further evaluation. Using gravity the contrast is moved from the lumbar region into the cervical spine with no complicati ons. Patient tolerated the procedure well. IR/IR myelogram sp cervical [id number] IMPRESSION: 1. Uncomplicated cervical myelogram. Patient to proceed to CT cervical spine m yelogram evaluation.
--- NOTE | 2024-11-18 09:55 | CT_ITS ---
WS: [email or web address] CT CERVICAL MYELOGRAM HISTORY: cervical pain Technique: All CT scans at [facility] use at least one of these dose optimization techniques: automated exposure control; mA and/or kV adjustment per patient size (includes targeted exams where dose is matched to clinical indication); or iterative reconstruction. DLP: 137.27 mGy.cm COMPARISON: No similar studies. Good opacification of thecal sac with contrast. Moderate degenerative disc space desiccation and narrowing at C5-6 with hypertrophic osteophytes. Lat eral masses of C1 and C2 are aligned. The odontoid is intact. C1-C2: Negative. C2-C3: Bilateral foraminal osteophytes, LEFT greater than RIGHT. Mild LEFT foraminal stenosis. No benito tral stenosis. C3-C4: Mild osteophytic ridging resulting in mild bilateral foraminal stenosis. No central stenosis. C4-C5: Mild osteophytic ridging and mild facet arthritis. No significant stenosis. C5-C6: Moderate osteophytic ridging with disc space narrowing. Osteophytes encroach upon the ventral thecal sac. Very minimal effacement of CSF. No significant foraminal stenosis. C6-C7: Small central disc protrusion with hypertrophic osteophytes. No stenosis. Paravertebral soft tissues are normal. Small bilateral cervical chain lymph nodes. CT/CT cervical spine w con [id number] IMPRESSION: 1. No high-grade central stenosis. No large disc protrusions. 2. Moderate degenerative disc disease at C5-6 with hypertrophic osteophytes. 3. Mild osteophyte encroachment upon the ventral thecal sac at C5-[address] enosis. 4. C6-7: Small central disc protrusion. 5. C2-3: Bilateral foraminal osteophytes, mild LEFT foraminal stenosis. 6. C3-4: Small foraminal osteophytes resulting in mild bilateral foraminal yola nosis.
[2024-11-18] MEDS: iohexol 240 mg/mL 50 mL Btl 20 ML INTRATHECA (10:23)
== END 2024-11-18 09:01 | disposition home or self-care (01) ==
PROVIDERS: PCP Family Medicine; Visit Provider Orthopaedic Surgery
DX: M50.322 Other cervical disc degeneration at C5-C6 level (principal); M25.78 Osteophyte, vertebrae
CPT/HCPCS: 62302; 72040; 72126

== ENCOUNTER 2024-11-22 10:59 | Day surgery (SDC) | payer MEDICAID, SELFPAY ==
[2024-11-22 11:48] VITALS: BMI 36.0
[2024-11-22 11:50] VITALS: BP 159/113; PULSE 91; RESP 18; TEMP 36.1; O2SAT 96
[2024-11-22] MEDS: sodium chloride 0.9% 500 ML 15 ML IV (12:02)
--- NOTE | 2024-11-22 12:23 | W.PM.OPSFHP ---
Same Day Surgery H&P Indication for Procedure/HPI DATE OF PROCEDURE: November 22, 2024 CHIEF COMPLAINT/INDICATIONFOR SURGICAL PROCEDURE: screening colonoscopy PREOP DIAGNOSIS: screening colonoscopy PLANNED PROCEDURE: Operation Date: 11/22/24 12:30 Proposed Procedures p Colonoscopy 01690, G0105, Z12.11(Not Applicable) - Raphael Mariee MD Medications/Allergies* Home Medications Medication Instructions Recorded Confirmed Type omeprazole 40 mg capsule,delayed 40 mg PO BID 03/04/22 11/22/24 History release epinephrine 0.3 mg/0.3 mL 0.3 mg IM Q4H PRN Allergic Reaction 07/14/22 11/22/24 History injection, auto-injector (EpiPen 2-Alexy) multivitamin 1 tab PO DAILY 07/14/22 11/22/24 History diphenhydramine HCl 25 mg capsule 50 mg PO BID PRN Allergic Symptoms 09/25/22 11/22/24 History (Benadryl) mometasone-formoterol HFA 200 2 puff inhalation BID 11/25/22 11/22/24 History mcg-5 mcg/actuation aerosol inhaler (Dulera) nwwrdskgcducl-fncznlhzymhpq-ljvikjrackd 2 tab PO Q4H PRN Sinus Symptoms 11/25/22 11/22/24 History 5 mg-325 mg-200 mg tablet (Tylenol Sinus Severe) benzonatate 200 mg capsule 200 mg PO Q8H PRN Cough 11/18/23 11/22/24 History metoclopramide HCl 10 mg tablet 10 mg PO TID PRN nausea/emesis 11/18/23 11/22/24 History pimecrolimus 1 % topical cream 1 applic topical BID PRN unknown 11/18/23 11/22/24 History (Elidel) triamcinolone acetonide 0.1 % See Rx Instructions .Route .COMPLEX 11/18/23 11/22/24 History topical cream atorvastatin 80 mg tablet 80 mg PO DAILY 10/11/24 11/22/24 History cyclobenzaprine 10 mg tablet 10 mg PO TID PRN Muscle Spasm 10/11/24 11/22/24 History ezetimibe 10 mg tablet 10 mg PO ONCE 10/11/24 11/22/24 History fluconazole 150 mg tablet 150 mg PO .one a week 10/11/24 11/22/24 History ketoconazole 2 % shampoo 1 applic topical DIRECTED 10/11/24 11/22/24 History albuterol sulfate 90 mcg/actuation 1 inh inhalation QID 11/01/24 11/22/24 History aerosol inhaler carbamazepine 400 mg 400 mg PO BID 11/22/24 11/22/24 History tablet,extended release,12 hr (Tegretol XR) levetiracetam 500 mg tablet 500 mg PO BID 11/22/24 11/22/24 History Allergies/Adverse Reactions Allergy/AdvReac Type Severity Reaction Status Date / Time Latex, Natural Rubber Allergy Severe ALGY-Difficulty Verified 11/22/24 11:55 Breathing lamotrigine Allergy Intermediate ALGY-Rash Verified 11/22/24 11:55 2-octyl cyanoacrylate Allergy Unknown Unknown Verified 11/22/24 11:55 Alpha-Gal Allergy ADR-Abdominal Verified 11/22/24 11:55 (Ldrlkbfcs-Uajko-2,3-Gala Pain aspirin Allergy ALGY-Difficulty Verified 11/22/24 11:55 Breathing banana Allergy Unknown Verified 11/22/24 11:55 doxycycline Allergy Unknown Verified 11/22/24 11:55 NSAIDS (Non-Steroidal Allergy ALGY-Difficulty Verified 11/22/24 11:55 Anti-Inflamma Breathing orange Allergy Unknown Verified 11/22/24 11:55 pineapple Allergy Unknown Verified 11/22/24 11:55 trazodone Allergy Unknown Verified 11/22/24 11:55 watermelon Allergy Unknown Verified 11/22/24 11:55 topiramate AdvReac Severe Rash & Verified 11/22/24 11:55 itching. dermabond Allergy ALGY-Bliste Uncoded 11/22/24 11:55 r Current Medications: Generic Name Dose Route Start Last Admin Trade Name Freq PRN Reason Stop Dose Admin Sodium Chloride 500 mls @ 15 mls/hr 11/22/24 11:08 11/22/24 12:02 Sodium Chloride 0.9% IV 11/23/24 11:07 15 mls/hr .Q24H PRN Administration COLONOSCOPY FLUIDS Pertinent History/Comorbid Conditions* Medical History (Updated 11/01/24 @ 14:44 by Kyler Mckeon DO) Psychiatric care History of umbilical hernia Anxiety Asthma CVA (cerebral vascular accident) Migraine Surgical History (Updated 10/11/24 @ 10:22 by Raphael Mariee MD) History of surgery on arm History of resection of small bowel History of laparotomy History of mandibular surgery Status post cholecystectomy Status post rotator cuff repair Status post hernia repair Family History (Updated 10/11/24 @ 09:40 by JAS Laura) Colon cancer Sister Anxiety Sister Depression Mother Brother Sister Headache Mother Hypertension Father Stroke Father Brother Social History Smoking and tobacco/nicotine status: never used tobacco/nicotine Alcohol intake: never Substance/Drug Use: never Pertinent Exam Findings alert, oriented x 3, clear to auscultation bilaterally, regular rate & rhythm and procedure specific exam findings abdomen soft, nt, nd Recommendations Surgery/Procedure today Coding Level of Care Code Acute Code for Chg Fwd
--- NOTE | 2024-11-22 12:43 | ANES.PREANE2 ---
Pre-Anesthetic Assessment Height/Weight: Height 1.7 m Weight 104.326 kg Temp Pulse Resp BP Pulse Ox O2 Del Method 97.0 F L 91 18 159/113 96 Room Air 11/22/24 11:50 11/22/24 11:50 11/22/24 11:50 11/22/24 11:50 11/22/24 11:50 11/22/24 11:50 Preop Diagnosis: screening colonoscopy Operation Date: 11/22/24 12:30 Proposed Procedures p Colonoscopy 53761, G0105, Z12.11(Not Applicable) - Raphael Mariee MD Familial anesthetic complications: none Was Beta Esthela taken within 24 hours: Yes Was Clonidine taken within 24 hours: N/A Last intake: Intake Last Liquid Date 11/22/24 Last Solid Date 11/20/24 Social No alcohol and No tobacco Exam alert, oriented x 3, clear to auscultation bilaterally and regular rate & rhythm Airway Submandibular: within normal limits Cervical ROM: within normal limits Mallampati: Class II Dentition: chipped (lower) Comments: Comments: upper arch edentulous GI Gastroesophageal Reflux Disease Metabolic Hyperlipidemia and Morbid Obesity [facility] [place] Osteoarthritis/DJD Neuropsych Anxiety, Depression and Seizure trigeminal neuralgia Anesthetic Plan ASA status: 3 Anesthesia: MAC Medications/Allergies Home Medications Medication Instructions Recorded Confirmed Last Taken Type omeprazole 40 mg capsule,delayed 40 mg PO BID 03/04/22 11/22/24 11/21/24 History release epinephrine 0.3 mg/0.3 mL 0.3 mg IM Q4H PRN Allergic Reaction 07/14/22 11/22/24 1 Year Ago History injection, auto-injector (EpiPen ~11/17/23 2-Alexy) multivitamin 1 tab PO DAILY 07/14/22 11/22/24 11/21/24 History diphenhydramine HCl 25 mg capsule 50 mg PO BID PRN Allergic Symptoms 09/25/22 11/22/24 Unknown History (Benadryl) mometasone-formoterol HFA 200 2 puff inhalation BID 11/25/22 11/22/24 11/21/24 History mcg-5 mcg/actuation aerosol inhaler (Dulera) wsnphryrvjqlv-pqhqngbpltxpj-ylfknfxpsvq 2 tab PO Q4H PRN Sinus Symptoms 11/25/22 11/22/24 11/20/24 History 5 mg-325 mg-200 mg tablet (Tylenol Sinus Severe) benzonatate 200 mg capsule 200 mg PO Q8H PRN Cough 11/18/23 11/22/24 Unknown History metoclopramide HCl 10 mg tablet 10 mg PO TID PRN nausea/emesis 11/18/23 11/22/24 2 Weeks Ago History ~11/03/24 pimecrolimus 1 % topical cream 1 applic topical BID PRN unknown 11/18/23 11/22/24 2 Weeks Ago History (Elidel) ~11/03/24 triamcinolone acetonide 0.1 % See Rx Instructions .Route .COMPLEX 11/18/23 11/22/24 1 Week Ago History topical cream ~11/10/24 ondansetron HCl 4 mg tablet 4 mg PO Q8H PRN Nausea And 11/21/23 11/22/24 Unknown Rx Vomiting #10 tabs buspirone 10 mg tablet 10 mg PO BID #60 tabs 09/19/24 11/22/24 11/21/24 Rx hydroxyzine HCl 50 mg tablet 50 mg PO QID PRN anxiety/insomnia 09/19/24 11/22/24 11/21/24 Rx #120 tabs prazosin 5 mg capsule 5 mg PO .HS #30 caps 09/19/24 11/22/24 11/21/24 Rx propranolol 20 mg tablet 20 mg PO BID PRN anxiety #60 tabs 09/19/24 11/22/24 11/21/24 Rx venlafaxine 150 mg tablet,extended 300 mg (2 x 150 mg) PO DAILY #60 09/19/24 11/22/24 11/21/24 Rx release 24 hr tabs atorvastatin 80 mg tablet 80 mg PO DAILY 10/11/24 11/22/24 11/21/24 History cyclobenzaprine 10 mg tablet 10 mg PO TID PRN Muscle Spasm 10/11/24 11/22/24 11/21/24 History ezetimibe 10 mg tablet 10 mg PO ONCE 10/11/24 11/22/24 11/21/24 History fluconazole 150 mg tablet 150 mg PO .one a week 10/11/24 11/22/24 11/17/24 History ketoconazole 2 % shampoo 1 applic topical DIRECTED 10/11/24 11/22/24 11/17/24 History albuterol sulfate 90 mcg/actuation 1 inh inhalation QID 11/01/24 11/22/24 11/21/24 History aerosol inhaler carbamazepine 400 mg 400 mg PO BID 11/22/24 11/22/24 11/22/24 History tablet,extended release,12 hr (Tegretol XR) levetiracetam 500 mg tablet 500 mg PO BID 11/22/24 11/22/24 11/22/24 History Allergies Allergy/AdvReac Type Severity Reaction Status Date / Time Latex, Natural Rubber Allergy Severe ALGY-Difficulty Verified 11/22/24 11:55 Breathing lamotrigine Allergy Intermediate ALGY-Rash Verified 11/22/24 11:55 2-octyl cyanoacrylate Allergy Unknown Unknown Verified 11/22/24 11:55 Alpha-Gal Allergy ADR-Abdominal Verified 11/22/24 11:55 (Vqwfecjjp-Smyya-8,3-Gala Pain aspirin Allergy ALGY-Difficulty Verified 11/22/24 11:55 Breathing banana Allergy Unknown Verified 11/22/24 11:55 doxycycline Allergy Unknown Verified 11/22/24 11:55 NSAIDS (Non-Steroidal Allergy ALGY-Difficulty Verified 11/22/24 11:55 Anti-Inflamma Breathing orange Allergy Unknown Verified 11/22/24 11:55 pineapple Allergy Unknown Verified 11/22/24 11:55 trazodone Allergy Unknown Verified 11/22/24 11:55 watermelon Allergy Unknown Verified 11/22/24 11:55 topiramate AdvReac Severe Rash & Verified 11/22/24 11:55 itching. dermabond Allergy ALGY-Bliste Uncoded 11/22/24 11:55 r Current Medications Generic Name Dose Route Start Last Admin Trade Name Freq PRN Reason Stop Dose Admin Sodium Chloride 500 mls @ 15 mls/hr 11/22/24 11:08 11/22/24 12:02 Sodium Chloride 0.9% IV 11/23/24 11:07 15 mls/hr .Q24H PRN Administration COLONOSCOPY FLUIDS PFSH Anesthesia Medical History Psychiatric care History of umbilical hernia Anxiety Asthma CVA (cerebral vascular accident) Migraine Surgical History History of surgery on arm History of resection of small bowel History of laparotomy History of mandibular surgery Status post cholecystectomy Status post rotator cuff repair Status post hernia repair Family History Mother Headache Depression Father Stroke Hypertension Brother Depression Stroke Sister Depression Anxiety Colon cancer Social History Smoking and tobacco/nicotine status: never used tobacco/nicotine Alcohol intake: never Substance/Drug Use: never Data Anesthesia Cardiac Studies: Echocardiogram 08/26/22 Cardiac Event Monitor 07/11/22
--- NOTE | 2024-11-22 13:55 | ANE.PACU2 ---
Inpatient post-anesthesia follow up: Airway intact: Yes Vital signs: Temperature 97.0 F Pulse Rate 91 Respiratory Rate 18 Blood Pressure 159/113 Pulse Oximetry 96 Oxygen Delivery Me thod Room Air Oxygen Flow Rate Fraction of Inspir ed Oxygen Hydration adequate: Yes Nausea and vomiting: No Pain level: 2 Mental status: Baseline
[2024-11-22 14:20] VITALS: BP 136/97; PULSE 89; TEMP 36.6; O2SAT 92
[2024-11-22 14:36] VITALS: BP 140/104; PULSE 93; O2SAT 94
== END 2024-11-22 15:05 | disposition home or self-care (01) ==
PROVIDERS: PCP Family Medicine; Visit Provider Student in an Organized Health Care Education/Training Program
PROC: 0DJD8ZZ Inspection of Lower Intestinal Tract, Via Natural or Artificial Opening Endoscopic (ICD-10-PCS; CPT 45378; principal; 2024-11-22 12:30)
DX: Z12.11 Encounter for screening for malignant neoplasm of colon (principal); F41.9 Anxiety disorder, unspecified; J45.909 Unspecified asthma, uncomplicated; Z86.73 Personal history of transient ischemic attack (TIA), and cerebral infarction without residual deficits; K21.9 Gastro-esophageal reflux disease without esophagitis; E78.5 Hyperlipidemia, unspecified; E66.01 Morbid (severe) obesity due to excess calories; Z68.36 Body mass index [BMI] 36.0-36.9, adult; M19.90 Unspecified osteoarthritis, unspecified site
CPT/HCPCS: G0121; J2405; J2704; J7040

== ENCOUNTER 2024-11-22 18:50 | Emergency (ER) | payer MEDICAID, SELFPAY ==
[2024-11-22] VITALS (10 sets, daily range): BP systolic 135–176; BP diastolic 11–118; PULSE 83–119; RESP 18; TEMP 36.9; O2SAT 90–99; BMI 36.8
--- NOTE | 2024-11-22 18:59 | ECG_ITS ---
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 Measurements Intervals Jackson Rate: 127 P: 28 OH: 198 QRS: -63 QRSD: 98 T: 45 QT: 416 QTc: 605 Interpretive Statements SINUS TACHYCARDIA LOW QRS VOLTAGE IN PRECORDIAL LEADS [QRS DEFLECTION < 1.0 mV IN CHEST LEADS] LEFT ANTERIOR FASCICULAR BLOCK [QRS AXIS <= -45, QR IN I, RS IN II] INFERIOR MYOCARDIAL INFARCTION , PROBABLY OLD [40+ ms Q WAVE AND/OR ST/T ABNORMALITY IN II/aVF] ANTEROLATERAL MYOCARDIAL INFARCTION , OF INDETERMINATE AGE [40+ ms Q WAVE IN I/aVL/V3-V6] Compared to ECG 11/18/2023 18:26:50 Low QRS voltage now present.Left anterior fascicular block now present Myocardial infarct finding now present.T-wave abnormality no longer present Electronically Signed On 11-23-2024 17:41:48 FLUOROSCOPE OPERATOR by Charisma Ozuna M.D. [email or web address]
--- NOTE | 2024-11-22 19:12 | XRR_ITS ---
PROCEDURE INFORMATION: Exam: XR Abdomen Exam date and time: 11/22/2024 7:22 PM Age: 44 years old Clinical indication: Abdominal pain; Acute; Prior surgery; Surgery date: Post-operative (0-2 days); Surgery type: Colonoscopy; Additional info: Abd pain TECHNIQUE: Imaging protocol: Radiologic exam of the abdomen. Views: Frontal supine view of the abdomen. 1 View. COMPARISON: CT abdomen pelvis con [id number] 11/18/2023 9:50 AM FINDINGS: Gastrointestinal tract: Normal. No bowel dilation. Bones/joints: Unremarkable. XR/XR abdomen 1V* [id number] IMPRESSION: No acute findings.
--- NOTE | 2024-11-22 19:23 | W.ED.NAVMDI ---
HPI - Nausea/Vomiting/Diarrhea General: Chief complaint: Nausea/Vomiting/Diarrhea Stated complaint: Vomiting\Seizure\Post Surgery today Time Seen by Provider: 11/22/24 19:11 History of Present Illness: 44-year-old with a history of chronic abdominal pain, migraines, seizures who presents the emergency room with upper epigastric pain and a headache. She had colonoscopy earlier today. She is complaining of severe epigastric pain she is having some nausea but no vomiting. She is tachycardic on presentation. She is somewhat agitated. Related Data Home Medications Medication Instructions Recorded Confirmed omeprazole 40 mg capsule,delayed 40 mg PO BID 03/04/22 11/22/24 release epinephrine 0.3 mg/0.3 mL 0.3 mg IM Q4H PRN Allergic Reaction 07/14/22 11/22/24 injection, auto-injector (EpiPen 2-Alexy) multivitamin 1 tab PO DAILY 07/14/22 11/22/24 diphenhydramine HCl 25 mg capsule 50 mg PO BID PRN Allergic Symptoms 09/25/22 11/22/24 (Benadryl) mometasone-formoterol HFA 200 2 puff inhalation BID 11/25/22 11/22/24 mcg-5 mcg/actuation aerosol inhaler (Dulera) [id number] 2 tab PO Q4H PRN Sinus Symptoms 11/25/22 11/22/24 5 mg-325 mg-200 mg tablet (Tylenol Sinus Severe) benzonatate 200 mg capsule 200 mg PO Q8H PRN Cough 11/18/23 11/22/24 metoclopramide HCl 10 mg tablet 10 mg PO TID PRN nausea/emesis 11/18/23 11/22/24 pimecrolimus 1 % topical cream 1 applic topical BID PRN unknown 11/18/23 11/22/24 (Elidel) triamcinolone acetonide 0.1 % See Rx Instructions .Route .COMPLEX 11/18/23 11/22/24 topical cream atorvastatin 80 mg tablet 80 mg PO DAILY 10/11/24 11/22/24 cyclobenzaprine 10 mg tablet 10 mg PO TID PRN Muscle Spasm 10/11/24 11/22/24 ezetimibe 10 mg tablet 10 mg PO ONCE 10/11/24 11/22/24 fluconazole 150 mg tablet 150 mg PO .one a week 11/26/24 01/07/25 ketoconazole 2 % shampoo 1 applic topical DIRECTED 10/11/24 11/22/24 albuterol sulfate 90 mcg/actuation 1 inh inhalation QID 11/01/24 11/22/24 aerosol inhaler carbamazepine 400 mg 400 mg PO BID 11/22/24 11/22/24 tablet,extended release,12 hr (Tegretol XR) levetiracetam 500 mg tablet 500 mg PO BID 11/22/24 11/22/24 Previous Rx's Medication Instructions Recorded ondansetron HCl 4 mg tablet 4 mg PO Q8H PRN Nausea And 11/21/23 Vomiting #10 tabs buspirone 10 mg tablet 10 mg PO BID #60 tabs 09/19/24 hydroxyzine HCl 50 mg tablet 50 mg PO QID PRN anxiety/insomnia 09/19/24 #120 tabs prazosin 5 mg capsule 5 mg PO .HS #30 caps 09/19/24 propranolol 20 mg tablet 20 mg PO BID PRN anxiety #60 tabs 09/19/24 venlafaxine 150 mg tablet,extended 300 mg (2 x 150 mg) PO DAILY #60 09/19/24 release 24 hr tabs Allergies Allergy/AdvReac Type Severity Reaction Status Date / Time Latex, Natural Rubber Allergy Severe ALGY-Difficulty Verified 11/22/24 19:08 Breathing lamotrigine Allergy Intermediate ALGY-Rash Verified 11/22/24 19:08 2-octyl cyanoacrylate Allergy Unknown Unknown Verified 11/22/24 19:08 Alpha-Gal Allergy ADR-Abdominal Verified 11/22/24 19:08 (Zibbrkyci-Cxdjv-0,3-Gala Pain aspirin Allergy ALGY-Difficulty Verified 11/22/24 19:08 Breathing banana Allergy Unknown Verified 11/22/24 19:08 doxycycline Allergy Unknown Verified 11/22/24 19:08 NSAIDS (Non-Steroidal Allergy ALGY-Difficulty Verified 11/22/24 19:08 Anti-Inflamma Breathing orange Allergy Unknown Verified 11/22/24 19:08 pineapple Allergy Unknown Verified 11/22/24 19:08 trazodone Allergy Unknown Verified 11/22/24 19:08 watermelon Allergy Unknown Verified 11/22/24 19:08 topiramate AdvReac Severe Rash & Verified 11/22/24 19:08 itching. dermabond Allergy RHIANNAY-Bliste Uncoded 11/22/24 19:08 r Review of Systems Narrative: Constitutional symptoms: Negative except as documented in HPI. Skin symptoms: Negative except as documented in HPI. Eye symptoms: Negative except as documented in HPI. ENMT symptoms: Negative except as documented in HPI. Respiratory symptoms: Negative except as documented in HPI. Cardiovascular symptoms: Negative except as documented in HPI. Gastrointestinal symptoms: Negative except as documented in HPI. Genitourinary symptoms: Negative except as documented in HPI. Musculoskeletal symptoms: Negative except as documented in HPI. Neurologic symptoms: Negative except as documented in HPI. Psychiatric symptoms: Negative except as documented in HPI. Endocrine symptoms: Negative except as documented in HPI. PFSH ED PFSH: Medical History Psychiatric care History of umbilical hernia Anxiety Asthma CVA (cerebral vascular accident) Migraine Surgical History History of surgery on arm History of resection of small bowel History of laparotomy History of mandibular surgery Status post cholecystectomy Status post rotator cuff repair Status post hernia repair Family History Mother Headache Depression Father Stroke Hypertension Brother Depression Stroke Sister Depression Anxiety Colon cancer Social History Smoking and tobacco/nicotine status: never used tobacco/nicotine Alcohol intake: never Substance/Drug Use: never Physical Exam Narrative: EXAM NARRATIVE: General: Alert, no acute distress. Skin: Warm, dry. Head: Normocephalic, atraumatic. Neck: Supple, trachea midline. Eye: Extraocular movements are intact. Ears, nose, mouth and throat: mucosa moist. Cardiovascular: Regular, Normal peripheral perfusion. Respiratory: Lungs are clear to auscultation, respirations are non-labored, breath sounds are equal, Symmetrical chest wall expansion. Gastrointestinal: Soft, moderate epigastric pain, Non distended Musculoskeletal: Normal ROM, no deformity. Neurological: Alert and oriented, No focal neurological deficit observed. Psychiatric: Cooperative, appropriate mood & affect. Course Vital Signs: Vital signs: Vital Signs Temperature 98.5 F 11/22/24 18:54 Pulse Rate 93 11/22/24 23:14 Respiratory Rate 18 11/22/24 19:56 Blood Pressure 135/90 11/22/24 23:14 Pulse Oximetry 92 11/22/24 23:14 Oxygen Delivery Me thod Room Air 11/22/24 18:54 MDM - Nausea/Vomiting/Diarrhea Medical Decision Making Medical decision making: Differential diagnosis including but not limited to and based on the above HPI, review of systems and physical exam: In this patient with epigastric pain differential would include cholelithiasis or cholecystitis. Hepatitis. Diverticulitis. Constipation. UTI. colitis. small bowel obstruction. crohn's flare. pancreatitis. gastritis. peptic ulcer. also concern for acute cardiac event. Orders placed to evaluate differential diagnosis based on the above differential, HPI and physical exam Lab Review: Laboratory results were reviewed and interpreted by myself the emergency room physician. Mild leukocytosis. No anemia. No renal failure. Urinalysis is negative. CT of the abdomen pelvis does not show any acute process. Other results listed below. This was reviewed and interpreted by myself the emergency room physician. I also reviewed the radiology report. Consultation: I spoke with Dr. Mariee who had reviewed the patient's films and recommends that she follow with her primary and that she is okay to go home. I reviewed the patient's medical record. Reexamination: Patient's pain is quite a bit improved. Agitation and headache are improved somewhat with Ativan. I recommend she follow with Dr. Pena for her continued headache issues. Assessment and plan: Abdominal pain Dehydration ?Dilaudid, Ativan, IV fluids, Zofran - Discharged home - Discussed plan with patient. Answered any questions. - Evaluation and treatment of this problem were appropriate in the emergency setting. Lab Data 11/22/24 19:49 11/22/24 19:49 Radiology Impressions Abdomen X-Ray 11/22/24 19:12 IMPRESSION: No acute findings. Abdomen/Pelvis CT 11/22/24 20:34 IMPRESSION: 1. Mildly prominent fluid in the small bowel without dilation may reflect an enteritis. 2. Right kidney punctate nonobstructing calyceal stone 3. Hepatic steatosis. 4. Gastric surgical sutures. 5. Moderate hiatal hernia. 6. Cholecystectomy. 7. Left ovarian 22 mm follicular cyst. Laboratory Results WBC 12.32 10^3/uL (3.29-11.43) H 11/22/24 19:49 RBC 5.38 10^6/uL (3.85-5.65) 11/22/24 19:49 Hgb 14.90 g/dL (11.27-16.99) 11/22/24 19:49 Hct 44.9 % (36-47) 11/22/24 19:49 MCV 83.5 fl (85-98) L 11/22/24 19:49 MCH 27.7 pg (27-33) 11/22/24 19:49 MCHC 33.2 g/dL (30-55) 11/22/24 19:49 RDW 14.0 % (12.1-15.1) 11/22/24 19:49 Plt Count 399 10^3/cmm (157-399) 11/22/24 19:49 MPV 8.5 fL (7.4-10.4) 11/22/24 19:49 Neut % (Auto) 74.6 % 11/22/24 19:49 Lymph % (Auto) 15.9 % 11/22/24 19:49 [place] % (Auto) 4.8 % 11/22/24 19:49 Eos % (Auto) 3.5 % 11/22/24 19:49 Baso % (Auto) 1.0 % 11/22/24 19:49 Neut # (Auto) 9.19 10^3/uL (1.8-7.7) H 11/22/24 19:49 Lymph # (Auto) 2.0 10^3/uL (0.8-4.8) 11/22/24 19:49 [place] # (Auto) 0.6 10^3/uL (0.2-0.9) 11/22/24 19:49 Eos # (Auto) 0.4 10^3/uL (0.0-0.8) 11/22/24 19:49 Baso # (Auto) 0.1 10^3/uL (0.0-0.1) 11/22/24 19:49 Nucleated RBC % (auto) 0 % 11/22/24 19:49 Nucleated RBCs # 0.0 /100WBC 11/22/24 19:49 Sodium 141 mmol/L (136-145) 11/22/24 19:49 Potassium 3.5 mmol/L (3.5-5.1) 11/22/24 19:49 Chloride 99 mmol/L (98-107) 11/22/24 19:49 Carbon Dioxide 22 mmol/L (22-29) 11/22/24 19:49 Anion Gap 23.5 (5-19) H 11/22/24 19:49 BUN 14 mg/dL (6-20) 11/22/24 19:49 Creatinine 0.6 mg/dL (0.5-0.9) 11/22/24 19:49 GFR Calculation 107.6 mL/min (90-130) 11/22/24 19:49 Glucose 148 mg/dL (65-115) H 11/22/24 19:49 Calculated Osmolality 295 mOsm/kg (285-295) 11/22/24 19:49 Lactic Acid 4.5 mmol/L (0.5-2.2) H* 11/22/24 19:49 Lactic Acid (Sepsis) 1.9 mmol/L (0.5-2.2) 11/22/24 22:00 Calcium 9.7 mg/dL (8.5-10.5) 11/22/24 19:49 Total Bilirubin 0.3 mg/dL (0.15-1.2) 11/22/24 19:49 AST 23 U/L (0-32) 11/22/24 19:49 ALT 20 U/L (0-33) 11/22/24 19:49 Alkaline Phosphatase 126 U/L (35-105) H 11/22/24 19:49 Troponin T Baseline 9 ng/L (0-10) 11/22/24 19:49 Troponin T 120 Minute 9.07 ng/L (0-10) 11/22/24 22:00 Delta Troponin T 0.07 ABS# (0-10) 11/22/24 22:00 Total Protein 7.9 g/dL (6.6-8.7) 11/22/24 19:49 Albumin 4.7 g/dL (3.5-5.2) 11/22/24 19:49 Globulin 3.2 g/dL (1.3-4.6) 11/22/24 19:49 Lipase 19 U/L (13-60) 11/22/24 19:49 Urine Color Dark yellow (Yellow) A 11/22/24 19:18 Urine Appearance Cloudy (CLEAR) A 11/22/24 19:18 Urine pH 5.0 (5-7) 11/22/24 19:18 Ur Specific [place] 1.035 (1.005-1.030) H 11/22/24 19:18 Urine Protein 2+ (Negative) A 11/22/24 19:18 Urine Glucose (UA) Negative (Normal) 11/22/24 19:18 Urine Ketones 2+ (Negative) H 11/22/24 19:18 Urine Blood Negative (Negative) 11/22/24 19:18 Urine Nitrate Negative (Negative) 11/22/24 19:18 Urine Bilirubin Negative (Negative) 11/22/24 19:18 Urine Urobilinogen 1.0 mg/dL (Negative) 11/22/24 19:18 Ur Leukocyte Esterase Negative (Negative) 11/22/24 19:18 Urine RBC 3-5 /hpf (0-2) 11/22/24 19:18 Urine WBC 0-5 /hpf (0-5) 11/22/24 19:18 Ur Squamous Epith Cells 11-20 /hpf (0-5) 11/22/24 19:18 Amorphous Sediment Not Reportable 11/22/24 19:18 Urine Bacteria None seen /hpf (NONE) 11/22/24 19:18 Hyaline Casts 3.30 /lpf 11/22/24 19:18 All radiology interpretation(s) finalized by discharge Discharge Plan Discharge Patient Disposition: Home Clinical Impression: Abdominal pain Condition: Stable Prescriptions: No Action omeprazole 40 mg capsule,delayed release(DR/EC) 40 mg PO BID diphenhydramine HCl [Benadryl] 25 mg capsule 50 mg PO BID PRN (Reason: Allergic Symptoms) albuterol sulfate 90 mcg/actuation HFA aerosol inhaler 1 inh inhalation QID buspirone 10 mg tablet 10 mg PO BID Qty: 60 2RF hydroxyzine HCl 50 mg tablet 50 mg PO QID PRN (Reason: anxiety/insomnia) Qty: 120 2RF venlafaxine 150 mg tablet extended release 24hr 300 mg PO DAILY Qty: 60 2RF propranolol 20 mg tablet 20 mg PO BID PRN (Reason: anxiety) Qty: 60 2RF prazosin 5 mg capsule 5 mg PO .HS Qty: 30 2RF cyclobenzaprine 10 mg tablet 10 mg PO TID PRN (Reason: Muscle Spasm) atorvastatin 80 mg tablet 80 mg PO DAILY ketoconazole 2 % shampoo 1 applic topical DIRECTED Rx Instructions: 2-3X A WEEK fluconazole 150 mg tablet 150 mg PO .one a week ezetimibe 10 mg tablet 10 mg PO ONCE multivitamin Tablet 1 tab PO DAILY epinephrine [EpiPen 2-Alexy] 0.3 mg/0.3 mL Auto-Injector 0.3 mg IM Q4H PRN (Reason: Allergic Reaction) Tylenol Sinus Severe 5-325-200 mg Tablet 2 tab PO Q4H PRN (Reason: Sinus Symptoms) Dulera 200-5 mcg/actuation Hfa Aerosol Inhaler 2 puff INHALATION BID benzonatate 200 mg capsule 200 mg PO Q8H PRN (Reason: Cough) pimecrolimus [Elidel] 1 % cream 1 applic TOPICAL BID PRN (Reason: unknown) triamcinolone acetonide 0.1 % cream See Rx Instructions .ROUTE .COMPLEX Rx Instructions: APPLY TWICE DAILY TO RASH ON HANDS NO MORE THAN 2 WEEKS PER MONTH NEEDED metoclopramide HCl 10 mg tablet 10 mg PO TID PRN (Reason: nausea/emesis) ondansetron HCl 4 mg Tablet 4 mg PO Q8H PRN (Reason: Nausea And Vomiting) Qty: 10 0RF levetiracetam 500 mg tablet 500 mg PO BID Rx Instructions: TAKE 1 TABLET BY MOUTH TWICE DAILY carbamazepine [Tegretol XR] 400 mg tablet extended release 12 hr 400 mg PO BID Rx Instructions: after the first month Discharge Orders: Discharge ED (Routine); Ordered 11/22/24 Ordered By: Zandra Joel Referrals: Marcos Dumas MD [Primary Care Provider] - Discharge Diet: Advance as tolerated Discharge Activity: Increase activity as tolerated Patient Instructions: Abdominal Pain (ED), Opioid Safety, Pain Management Activity Restrictions/Additional Instructions: Please follow-up with Dr. Pena as soon as possible about your headaches. If your abdominal issues continue follow-up with your primary doctor with Dr. Mariee. Thank you for choosing [facility] for your healthcare needs today. Please realize this is an emergency room and that we are providing you with a medical screening exam and this may not be complete and all inclusive of all the testing and or work up that you may need to determine your ailment or severity of your illness. You have been screened and evaluated and felt safe for discharge. Health conditions do change or evolve sometimes and as such it is important that you follow up with your Primary Doctor to be re checked, 3-5 days is a general good time frame for follow up. You are always welcome to return to the ED for re assessment if your symptoms are worsening or you have new concerns Coding Level of Care Code ED Product Marketing Engineer for Joey Castro
[2024-11-22] MEDS: ondansetron 2 mg/ML SDV 2 mL 8 MG IVP (19:54)
[2024-11-22] MEDS: HYDROmorphone 1 mg/mL INJ 1 mL IVP (19:56)
[2024-11-22] MEDS: sodium chloride 0.9% 1,000 ML 999 ML IV (20:14)
[2024-11-22 20:16] LABS: Basophils # 0.1 10^3/uL (0.0-0.1); Eosinophils # 0.4 10^3/uL (0.0-0.8); Eosinophils % 3.5 %; Hematocrit 44.9 % (36-47); Lymphocytes % 15.9 %; Mean Corpuscular HGB Conc 33.2 g/dL (30-55); Mean Corpuscular Hemoglobin 27.7 pg (27-33); Mean Corpuscular Volume 83.5 fl (85-98); Mean Platelet Volume 8.5 fL (7.4-10.4); Monocytes # 0.6 10^3/uL (0.2-0.9); Monocytes % 4.8 %; Neutrophils # 9.19 10^3/uL (1.8-7.7); Neutrophils % 74.6 %; Nucleated Red Blood Cells % 0 %; Platelet Count 399 10^3/cmm (157-399); Red Blood Count 5.38 10^6/uL (3.85-5.65); White Blood Count 12.32 10^3/uL (3.29-11.43)
[2024-11-22 20:27] LABS: Alanine Aminotransferase 20 U/L (0-33); Albumin Level 4.7 g/dL (3.5-5.2); Alkaline Phosphatase 126 U/L (35-105); Anion Gap 23.5 (5-19); Aspartate Amino Transferase 23 U/L (0-32); Blood Urea Nitrogen 14 mg/dL (6-20); Calcium 9.7 mg/dL (8.5-10.5); Carbon Dioxide 22 mmol/L (22-29); Chloride 99 mmol/L (98-107); Creatinine Clr Calc Pharmacy 147.2187; Globulin 3.2 g/dL (1.3-4.6); Glomerular Filtration Rate 107.6 mL/min (90-130); Glucose 148 mg/dL (65-115); Lipase 19 U/L (13-60); Osmolality Calculated 295 mOsm/kg (285-295); Potassium 3.5 mmol/L (3.5-5.1); Sodium 141 mmol/L (136-145); Total Bilirubin 0.3 mg/dL (0.15-1.2); Total Protein 7.9 g/dL (6.6-8.7)
[2024-11-22 20:33] LABS: Lactic Sepsis W/Reflex 4.5 mmol/L (0.5-2.2)
[2024-11-22 20:33] LABS: Bilirubin Urine Negative (Negative); Blood Urine Negative (Negative); Glucose Urine UA Negative (Normal); Ketones Urine 2+ (Negative); Leukocyte Esterase Urine Negative (Negative); Nitrate Urine Negative (Negative); Protein Urine 2+ (Negative); Urine Appearance Cloudy (CLEAR); Urine Color Dark Yellow (Yellow)
--- NOTE | 2024-11-22 20:34 | CTR_ITS ---
PROCEDURE INFORMATION: Exam: CT Abdomen And Pelvis With Contrast Exam date and time: 11/22/2024 9:19 PM Age: 44 years old Clinical indication: Abdominal pain TECHNIQUE: Imaging protocol: Computed tomography of the abdomen and pelvis with contrast. Radiation optimization: All CT scans at this facility use at least one of these dose optimization techniques: automated exposure control; mA and/or kV adjustment per patient size (includes targeted exams where dose is matched to clinical indication); or iterative reconstruction. Contrast material: OMNI 350; Contrast volume: 100 ml; Contrast route: INTRAVENOUS (IV); COMPARISON: CT abdomen pelvis wo con [id number] 11/18/2023 9:50 AM RADIATION DOSE METRICS: Total DLP (mGy-cm): 1086.19 FINDINGS: Diaphragm: Moderate hiatal hernia. Liver: Hepatic steatosis. Gallbladder and biliary ducts: Cholecystectomy. Pancreas: Normal. No ductal dilation. Spleen: Normal. No splenomegaly. Adrenal glands: Normal. No mass. Kidneys and ureters: Right kidney punctate nonobstructing calyceal stone Stomach and bowel: Mildly prominent fluid in the small bowel without dilation may reflect an enteritis. Gastric surgical sutures. Appendix: No evidence of appendicitis. Intraperitoneal space: Unremarkable. No free air. No significant fluid collection. Vasculature: Unremarkable. No abdominal aortic aneurysm. Lymph nodes: Unremarkable. No enlarged lymph nodes. Urinary bladder: Unremarkable as visualized. Reproductive: Left ovarian 22 mm follicular cyst. Bones/joints: Unremarkable. No acute fracture. Soft tissues: Unremarkable. CT/CT abdomen pelvis w con* [id number] IMPRESSION: 1. Mildly prominent fluid in the small bowel without dilation may reflect an enteritis. 2. Right kidney punctate nonobstructing calyceal stone 3. Hepatic steatosis. 4. Gastric surgical sutures. 5. Moderate hiatal hernia. 6. Cholecystectomy. 7. Left ovarian 22 mm follicular cyst.
[2024-11-22 20:38] LABS: Bacteria Urine None Seen /hpf; WBC Urine 0-5 /hpf (0-5)
[2024-11-22 20:58] LABS: Specific Gravity, Urine 1.035 (1.005-1.030)
[2024-11-22] MEDS: iohexol 350 mg/mL 500 mL Btl (per mL) IV (21:22)
[2024-11-22] MEDS: LORazepam 2 mg/mL INJ 1 mL 1 MG IVP (21:53)
--- NOTE | 2024-11-22 21:54 | ECG_ITS ---
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 Measurements Intervals [place] Rate: 90 P: 35 WA: 223 QRS: -28 QRSD: 114 T: 153 QT: 390 QTc: 477 Interpretive Statements SINUS RHYTHM WITH FIRST DEGREE AV BLOCK POSSIBLE LEFT ATRIAL ENLARGEMENT [-0.1mV P-WAVE IN V1/V2] POSSIBLE ANTERIOR MYOCARDIAL INFARCTION , OF INDETERMINATE AGE [30 ms Q WAVE IN V3/V4, OR R < 0.2 mV IN V4] Compared to ECG 11/18/2023 18:26:50 First degree AV block now present Myocardial infarct finding now present Sinus tachycardia no longer present T-wave abnormality no longer present Electronically Signed On 11-22-2024 23:04:17 SPLICER HELPER by Jeronimo Cortez M.D. [email or web address]
[2024-11-22] MEDS: famotidine 20 mg/2 mL INJ 40 MG IVP (21:55)
[2024-11-22 22:02] LABS: Reflex Lactate Order REFLEX LACTIC ORDERD
[2024-11-22] MEDS: acetaminophen 1,000 MG/100 ML PIGGYBACK 400 MG IV (22:09)
[2024-11-22 22:14] LABS: Troponin(5th) Baseline 9 ng/L (0-10)
[2024-11-22 22:28] LABS: Troponin 5 2HR 9.07 ng/L (0-10); Troponin 5 2HR Delta 0.07 ABS# (0-10)
[2024-11-22 22:29] LABS: Lactic Acid level (Lactate) 1.9 mmol/L (0.5-2.2)
[2024-11-23 00:06] VITALS: BP 127/98; PULSE 87; O2SAT 93
== END 2024-11-22 23:55 | disposition home or self-care (01) ==
PROVIDERS: Emergency Provider Emergency Medicine; PCP Family Medicine
DX: R10.9 Unspecified abdominal pain (principal); Z86.73 Personal history of transient ischemic attack (TIA), and cerebral infarction without residual deficits
CPT/HCPCS: 74018; 74177; 80053; 81001; 83605; 83690; 84484; 85025; 87040; 93005; 96365; 96375; 99285; J0131; J1171; J2060; J2405; J3490; J7030

== ENCOUNTER 2024-11-24 00:08 | Emergency (ER) | payer MEDICAID, SELFPAY ==
[2024-11-24 00:16] VITALS: BP 137/91; PULSE 82; RESP 14; TEMP 36.7; O2SAT 94; BMI 36.0
--- NOTE | 2024-11-24 00:55 | ED_ITS ---
HPI - Seizure 2 General: Chief Complaint: Seizure Stated Complaint: Post Surgery\Seizures Time Seen by Provider: 11/24/24 00:29 History of Present Illness: HPI Narrative: 44-year-old female with history of chron ic abdominal pain, migraines, seizures presents emergency room with seizures and a complaint of night terrors. She says she has not taken her seizure meds in several days. She tried to take it tonight and threw it up. She has been taking some Zofran. No fevers. She is tearful. Related Data Home Medications Medication Instructions Recorded Confirmed omeprazole 40 mg capsule,delayed 40 mg PO BID 03/04/22 11/22/24 release epinephrine 0.3 mg/0.3 mL 0.3 mg IM Q4H PRN Allergic Reaction 07/14/22 11/22/24 injection, auto-injector (EpiPen 2-Alexy) multivitamin 1 tab PO DAILY 07/14/22 11/22/24 diphenhydramine HCl 25 mg capsule 50 mg PO BID PRN Allergic Symptoms 09/25/22 11/22/24 (Benadryl) mometasone-formoterol HFA 200 2 puff inhalation BID 11/25/22 11/22/24 mcg-5 mcg/actuation aerosol inhaler (Dulera) wshfescyxyjhz-mehccoejpgmra-xqqvvjasbjl 2 tab PO Q4H PRN Sinus Symptoms 11/25/22 11/22/24 5 mg-325 mg-200 mg tablet (Tylenol Sinus Severe) benzonatate 200 mg capsule 200 mg PO Q8H PRN Cough 11/18/23 11/22/24 metoclopramide HCl 10 mg tablet 10 mg PO TID PRN nausea/emesis 11/18/23 11/22/24 pimecrolimus 1 % topical cream 1 applic topical BID PRN unknown 11/18/23 11/22/24 (Elidel) triamcinolone acetonide 0.1 % See Rx Instructions .Route .COMPLEX 11/18/23 11/22/24 topical cream atorvastatin 80 mg tablet 80 mg PO DAILY 10/11/24 11/22/24 cyclobenzaprine 10 mg tablet 10 mg PO TID PRN Muscle Spasm 10/11/24 11/22/24 ezetimibe 10 mg tablet 10 mg PO ONCE 10/11/24 11/22/24 fluconazole 150 mg tablet 150 mg PO .one a week 10/11/24 11/22/24 ketoconazole 2 % shampoo 1 applic topical DIRECTED 10/11/24 11/22/24 albuterol sulfate 90 mcg/actuation 1 inh inhalation QID 11/01/24 11/22/24 aerosol inhaler carbamazepine 400 mg 400 mg PO BID 11/22/24 11/22/24 tablet,extended release,12 hr (Tegretol XR) levetiracetam 500 mg tablet 500 mg PO BID 11/22/24 11/22/24 Previous Rx's Medication Instructions Recorded ondansetron HCl 4 mg tablet 4 mg PO Q8H PRN Nausea And 11/21/23 Vomiting #10 tabs buspirone 10 mg tablet 10 mg PO BID #60 tabs 11/23/24 hydroxyzine HCl 50 mg tablet 50 mg PO QID PRN anxiety/insomnia 11/23/24 #120 tabs prazosin 5 mg capsule 5 mg PO .HS #30 caps 11/23/24 propranolol 20 mg tablet 20 mg PO BID PRN anxiety #60 tabs 11/23/24 venlafaxine 150 mg tablet,extended 300 mg (2 x 150 mg) PO DAILY #60 11/23/24 release 24 hr tabs promethazine 25 mg rectal 25 mg OR Q6H PRN nausea and 11/24/24 suppository vomiting #12 ea Allergies Allergy/AdvReac Type Severity Reaction Status Date / Time Latex, Natural Rubber Allergy Severe ALGY-Difficulty Verified 11/24/24 00:23 Breathing lamotrigine Allergy Intermediate ALGY-Rash Verified 11/24/24 00:23 2-octyl cyanoacrylate Allergy Unknown Unknown Verified 11/24/24 00:23 Alpha-Gal Allergy ADR-Abdominal Verified 11/24/24 00:23 (Rpufmislk-Zhbso-0,3-Gala Pain aspirin Allergy ALGY-Difficulty Verified 11/24/24 00:23 Breathing banana Allergy Unknown Verified 11/24/24 00:23 doxycycline Allergy Unknown Verified 11/24/24 00:23 NSAIDS (Non-Steroidal Allergy ALGY-Difficulty Verified 11/24/24 00:23 Anti-Inflamma Breathing orange Allergy Unknown Verified 11/24/24 00:23 pineapple Allergy Unknown Verified 11/24/24 00:23 trazodone Allergy Unknown Verified 11/24/24 00:23 watermelon Allergy Unknown Verified 11/24/24 00:23 topiramate AdvReac Severe Rash & Verified 11/24/24 00:23 itching. dermabond Allergy CORDELIA-Paolae Uncoded 11/24/24 00:23 r Review of Systems 2 Narrative: Constitutional symptoms: Negative except as documented in HPI. Skin symptoms: Negative except as documented in HPI. Eye symptoms: Negative except as documented in HPI. ENMT symptoms: Negative except as documented in HPI. Respiratory symptoms: Negative except as documented in HPI. Cardiovascular symptoms: Negative except as documented in HPI. Gastrointestinal symptoms: Negative except as documented in HPI. Genitourinary symptoms: Negative except as documented in HPI. Musculoskeletal symptoms: Negative except as documented in HPI. Neurologic symptoms: Negative except as documented in HPI. Psychiatric symptoms: Negative except as documented in HPI. Endocrine symptoms: Negative except as documented in HPI. PFSH ED 2 PFSH: Medical History Psychiatric care History of umbilical hernia Anxiety Asthma CVA (cerebral vascular accident) Migraine Surgical History History of surgery on arm History of resection of small bowel History of laparotomy History of mandibular surgery Status post cholecystectomy Status post rotator cuff repair Status post hernia repair Family History Mother Headache Depression Father Stroke Hypertension Brother Depression Stroke Sister Depression Anxiety Colon cancer Social History Smoking and tobacco/nicotine status: never used tobacco/nicotine Alcohol intake: never Substance/Drug Use: never Physical Exam 2 Narrative: EXAM NARRATIVE: General: Alert, no acute distress. Skin: Warm, dry. Head: Normocephalic, atraumatic. Neck: Supple, trachea midline. Eye: Extraocular movements are intact. Ears, nose, mouth and throat: mucosa moist. Cardiovascular: Regular, Normal peripheral perfusion. Respiratory: Lungs are clear to auscultation, respirations are non-labored, breath sounds are equal, Symmetrical chest wall expansion. Gastrointestinal: Soft, Nontender, Non distended Musculoskeletal: Normal ROM, no deformity. Neurological: Alert and oriented, No focal neurological deficit observed. Psychiatric: Cooperative, appropriate mood & affect. Course 2 Vital Signs: Vital signs: Vital Signs Temperature 98.1 F 11/24/24 00:16 Pulse Rate 78 11/24/24 02:40 Respiratory Rate 23 H 11/24/24 02:40 Blood Pressure 137/91 11/24/24 00:16 Pulse Oximetry 90 11/24/24 02:40 Oxygen Delivery Me thod Room Air 11/24/24 00:16 MDM - Seizure MDM Narrative Medical decision making narrative: Medical decision making: Differential diagnosis for this patient with a complaint of seizure like activity would include but not be limited to, and based on the above HPI, review of systems and physical exam: seizure, DT's, alcohol withdrawal, brain malignancy, pseudo-seizure, syncope. Orders placed to evaluate differential diagnosis based on the above differential, HPI and physical exam lab work is unremarkable again today. No leukocytosis. No anemia. No renal failure. Lipase is negative so no pancreatitis. Ab Review: Laboratory results were reviewed and interpreted by myself the emergency room physician Lactate is negative so likely not life-threatening seizures. I reviewed the patient's medical record. Reexamination: Patient has had some improvement. She is somnolent now. Assessment and plan: Seizure disorder Vomiting ?IV Compazine and Benadryl for vomiting as Zofran has not been working. IV Ativan for anxiety and night terrors and also for possible seizures. I also gave her a loading dose of Keppra which she takes orally at home normally. - Discharged home - Discussed plan with patient. Answered any questions. - Evaluation and treatment of this problem were appropriate in the emergency setting. Lab Data 11/24/24 01:45 11/24/24 01:45 Labs: Laboratory Results WBC 7.38 10^3/uL (3.29-11.43) 11/24/24 01:45 RBC 4.59 10^6/uL (3.85-5.65) 11/24/24 01:45 Hgb 12.60 g/dL (11.27-16.99) 11/24/24 01:45 Hct 38.3 % (36-47) 11/24/24 01:45 MCV 83.4 fl (85-98) L 11/24/24 01:45 MCH 27.5 pg (27-33) 11/24/24 01:45 MCHC 32.9 g/dL (30-55) 11/24/24 01:45 RDW 14.2 % (12.1-15.1) 11/24/24 01:45 Plt Count 302 10^3/cmm (157-399) 11/24/24 01:45 MPV 8.3 fL (7.4-10.4) 11/24/24 01:45 Neut % (Auto) 57.9 % 11/24/24 01:45 Lymph % (Auto) 32.2 % 11/24/24 01:45 Brantley % (Auto) 6.6 % 11/24/24 01:45 Eos % (Auto) 2.2 % 11/24/24 01:45 Baso % (Auto) 0.8 % 11/24/24 01:45 Neut # (Auto) 4.27 10^3/uL (1.8-7.7) 11/24/24 01:45 Lymph # (Auto) 2.4 10^3/uL (0.8-4.8) 11/24/24 01:45 Brantley # (Auto) 0.5 10^3/uL (0.2-0.9) 11/24/24 01:45 Eos # (Auto) 0.2 10^3/uL (0.0-0.8) 11/24/24 01:45 Baso # (Auto) 0.1 10^3/uL (0.0-0.1) 11/24/24 01:45 Nucleated RBC % (auto) 0 % 11/24/24 01:45 Nucleated RBCs # 0.0 /100WBC 11/24/24 01:45 Sodium 140 mmol/L (136-145) 11/24/24 01:45 Potassium 4.1 mmol/L (3.5-5.1) 11/24/24 01:45 Chloride 102 mmol/L (98-107) 11/24/24 01:45 Carbon Dioxide 25 mmol/L (22-29) 11/24/24 01:45 Anion Gap 17.1 (5-19) 11/24/24 01:45 BUN 11 mg/dL (6-20) 11/24/24 01:45 Creatinine 0.4 mg/dL (0.5-0.9) L 11/24/24 01:45 GFR Calculation 171.8 mL/min (90-130) H 11/24/24 01:45 Glucose 129 mg/dL (65-115) H 11/24/24 01:45 Calculated Osmolality 291 mOsm/kg (285-295) 11/24/24 01:45 Lactic Acid 2.0 mmol/L (0.5-2.2) 11/24/24 01:45 Calcium 9.3 mg/dL (8.5-10.5) 11/24/24 01:45 Total Bilirubin 0.3 mg/dL (0.15-1.2) 11/24/24 01:45 AST 19 U/L (0-32) 11/24/24 01:45 ALT 19 U/L (0-33) 11/24/24 01:45 Alkaline Phosphatase 107 U/L (35-105) H 11/24/24 01:45 Total Protein 7.0 g/dL (6.6-8.7) 11/24/24 01:45 Albumin 4.3 g/dL (3.5-5.2) 11/24/24 01:45 Globulin 2.7 g/dL (1.3-4.6) 11/24/24 01:45 Lipase 20 U/L (13-60) 11/24/24 01:45 All radiology interpretation(s) finalized by discharge Discharge Plan Discharge Patient Disposition: Home Clinical Impression: Seizure, Seizure disorder, Vomiting Condition: Stable Prescriptions: New promethazine 25 mg suppository 25 mg OR Q6H PRN (Reason: nausea and vomiting) Qty: 12 0RF No Action omeprazole 40 mg capsule,delayed release(DR/EC) 40 mg PO BID diphenhydramine HCl [Benadryl] 25 mg capsule 50 mg PO BID PRN (Reason: Allergic Symptoms) albuterol sulfate 90 mcg/actuation HFA aerosol inhaler 1 inh inhalation QID cyclobenzaprine 10 mg tablet 10 mg PO TID PRN (Reason: Muscle Spasm) atorvastatin 80 mg tablet 80 mg PO DAILY ketoconazole 2 % shampoo 1 applic topical DIRECTED Rx Instructions: 2-3X A WEEK fluconazole 150 mg tablet 150 mg PO .one a week ezetimibe 10 mg tablet 10 mg PO ONCE buspirone 10 mg tablet 10 mg PO BID Qty: 60 2RF hydroxyzine HCl 50 mg tablet 50 mg PO QID PRN (Reason: anxiety/insomnia) Qty: 120 2RF prazosin 5 mg capsule 5 mg PO .HS Qty: 30 2RF propranolol 20 mg tablet 20 mg PO BID PRN (Reason: anxiety) Qty: 60 2RF venlafaxine 150 mg tablet extended release 24hr 300 mg PO DAILY Qty: 60 0RF multivitamin Tablet 1 tab PO DAILY epinephrine [EpiPen 2-Alexy] 0.3 mg/0.3 mL Auto-Injector 0.3 mg IM Q4H PRN (Reason: Allergic Reaction) Tylenol Sinus Severe 5-325-200 mg Tablet 2 tab PO Q4H PRN (Reason: Sinus Symptoms) Dulera 200-5 mcg/actuation Hfa Aerosol Inhaler 2 puff INHALATION BID benzonatate 200 mg capsule 200 mg PO Q8H PRN (Reason: Cough) pimecrolimus [Elidel] 1 % cream 1 applic TOPICAL BID PRN (Reason: unknown) triamcinolone acetonide 0.1 % cream See Rx Instructions .ROUTE .COMPLEX Rx Instructions: APPLY TWICE DAILY TO RASH ON HANDS NO MORE THAN 2 WEEKS PER MONTH NEEDED metoclopramide HCl 10 mg tablet 10 mg PO TID PRN (Reason: nausea/emesis) ondansetron HCl 4 mg Tablet 4 mg PO Q8H PRN (Reason: Nausea And Vomiting) Qty: 10 0RF levetiracetam 500 mg tablet 500 mg PO BID Rx Instructions: TAKE 1 TABLET BY MOUTH TWICE DAILY carbamazepine [Tegretol XR] 400 mg tablet extended release 12 hr 400 mg PO BID Rx Instructions: after the first month Discharge Orders: Discharge ED (Routine); Ordered 11/24/24 Ordered By: Zandra Joel Referrals: Marcos Dumas MD [Primary Care Provider] - Patient Instructions: Epilepsy (ED), Recurrent Seizures in Adults (ED), Opioid Safety, Pain Management Activity Restrictions/Additional Instructions: Thank you for choosing [facility] for your healthcare needs today. Please realize this is an emergency room and that we are providing you with a medical screening exam and this may not be complete and all inclusive of all the testing and or work up that you may need to determine your ailment or severity of your illness. You have been screened and evaluated and felt safe for discharge. Health conditions do change or evolve sometimes and as such it is important that you follow up with your Primary Doctor to be re checked, 3-5 days is a general good time frame for follow up. You are always welcome to return to the ED for re assessment if your symptoms are worsening or you have new concerns Coding Level of Care Code ED Bindery Cutter Operator for Joey Castro
[2024-11-24] MEDS: LORazepam 2 mg/mL INJ 1 mL 1 MG IVP (01:47)
[2024-11-24] MEDS: levETIRAcetam 1,000 MG/100 ML PREMIX 400 MG IV (01:47)
[2024-11-24] MEDS: diphenhydrAMINE 50 mg/mL SDV 1mL IVP (01:47)
[2024-11-24] MEDS: prochlorperazine 10 mg/2 mL Inj IVP (01:47)
[2024-11-24 01:50] LABS: Basophils # 0.1 10^3/uL (0.0-0.1); Basophils % 0.8 %; Eosinophils # 0.2 10^3/uL (0.0-0.8); Eosinophils % 2.2 %; Hematocrit 38.3 % (36-47); Lymphocytes # 2.4 10^3/uL (0.8-4.8); Lymphocytes % 32.2 %; Mean Corpuscular HGB Conc 32.9 g/dL (30-55); Mean Corpuscular Hemoglobin 27.5 pg (27-33); Mean Corpuscular Volume 83.4 fl (85-98); Mean Platelet Volume 8.3 fL (7.4-10.4); Monocytes # 0.5 10^3/uL (0.2-0.9); Monocytes % 6.6 %; Neutrophils # 4.27 10^3/uL (1.8-7.7); Neutrophils % 57.9 %; Nucleated Red Blood Cells % 0 %; Platelet Count 302 10^3/cmm (157-399); Red Blood Count 4.59 10^6/uL (3.85-5.65); Red Cell Distribution Width 14.2 % (12.1-15.1); White Blood Count 7.38 10^3/uL (3.29-11.43)
[2024-11-24 02:12] LABS: Alanine Aminotransferase 19 U/L (0-33); Albumin Level 4.3 g/dL (3.5-5.2); Alkaline Phosphatase 107 U/L (35-105); Anion Gap 17.1 (5-19); Aspartate Amino Transferase 19 U/L (0-32); Blood Urea Nitrogen 11 mg/dL (6-20); Calcium 9.3 mg/dL (8.5-10.5); Carbon Dioxide 25 mmol/L (22-29); Chloride 102 mmol/L (98-107); Creatinine Clr Calc Pharmacy 218.3112; Globulin 2.7 g/dL (1.3-4.6); Glomerular Filtration Rate 171.8 mL/min (90-130); Glucose 129 mg/dL (65-115); Lipase 20 U/L (13-60); Osmolality Calculated 291 mOsm/kg (285-295); Potassium 4.1 mmol/L (3.5-5.1); Sodium 140 mmol/L (136-145); Total Bilirubin 0.3 mg/dL (0.15-1.2)
[2024-11-24 02:40] VITALS: PULSE 78; RESP 23; O2SAT 90
[2024-11-24 03:06] VITALS: BP 136/90; PULSE 82; O2SAT 93
== END 2024-11-24 03:07 | disposition home or self-care (01) ==
PROVIDERS: Emergency Provider Emergency Medicine; PCP Family Medicine
DX: G40.909 Epilepsy, unspecified, not intractable, without status epilepticus (principal); R11.10 Vomiting, unspecified; Z86.73 Personal history of transient ischemic attack (TIA), and cerebral infarction without residual deficits
CPT/HCPCS: 80053; 83605; 83690; 85025; 96365; 96375; 99284; J0780; J1200; J1953; J2060

== ENCOUNTER 2024-12-13 06:50 | Outpatient (CLI) | payer MEDICAID, SELFPAY ==
--- NOTE | 2024-12-13 07:00 | USCV_ITS ---
Eliana Julio Age: 44 Gender: F : 1980 Exam Date: 12/13/2024 07:08 Ordering Phys: Siobhan Pena MD Technologist: [place] [facility] [place]: syncope BP: 125 / 90 HR: 61 Rhythm: Sinus Technical Quality: Adequate MEASUREMENTS (Male / Female) Normal Values 2D ECHO LV Diastolic Diameter PLAX 4.2 cm 4.2 - 5.9 / 3.9 - 5.3 cm IVS Diastolic Thickness 1.9 cm 0.6 - 1.0 / 0.6 - 0.9 cm IVS Systolic Thickness 2.5 cm LVPW Diastolic Thickness 1.2 cm 0.6 - 1.0 / 0.6 - 0.9 cm LVPW Systolic Thickness 1.4 cm LVOT Diameter 2.0 cm LV Ejection Fraction 2D Teich 75.6 % LV Ejection Fraction MOD 4C 63.6 % LV Ejection Fraction MOD 2C 54.8 % LV Ejection Fraction 2C AL 55.4 % LA Diameter 3.2 cm RA Systolic Volume 4C AL 24.4 ml RA Systolic Volume 4C MOD 22.8 ml Aorta at Sinotubular Diameter 3.0 cm IVC Diameter 1.6 cm M-MODE LA Ao Ratio MM 1.1 AV Cusp Separation MM 2.1 cm DOPPLER AV Peak Velocity 113.0 cm/s LVOT Peak Velocity 93.0 cm/s AV Area Cont Eq vti 2.3 cm squared AV Area Cont Eq pk 2.6 cm squared MV Peak Velocity 91.0 cm/s MV Area PHT 3.9 cm squared Mitral E to A Ratio 1.5 TV Peak Velocity 131.5 cm/s TR Peak Velocity 157.0 cm/s TR Peak Gradient 9.9 mmHg TV Peak E Velocity 100.0 cm/s PV Peak Velocity 72.0 cm/s FINDINGS Left Ventricle Left ventricle is normal in size. LV systolic function is normal with EF of 55-60%. No regional wall motion abnormalities are seen. Left ventricular hypertrophy seen. Right Ventricle Normal in size and function Right Atrium Normal in size Left Atrium Normal in size Mitral Valve Structurally normal mitral valve. Mild mitral regurgitation. Aortic Valve Aortic valve is thickened. No significant stenosis. Tricuspid Valve Insufficient TR jet to calculate RVSP. Pulmonic Valve Not well visualized Pericardium Normal Aorta Normal in size IVC Appears to be normal CONCLUSIONS LV systolic function is normal with EF of 55-60% Left ventricular hypertrophy Mild mitral regurgitation Compared to prior echocardiogram from 2021, no significant changes are seen Jeronimo Cortez MD (Electronically Signed) Final Date: 18 December 2024 13:09 S
== END 2024-12-13 06:51 | disposition home or self-care (01) ==
LOC: RAD 06:50
PROVIDERS: PCP Family Medicine; Visit Provider Specialist
DX: R56.9 Unspecified convulsions (principal); R20.0 Anesthesia of skin; R20.2 Paresthesia of skin; G43.711 Chronic migraine without aura, intractable, with status migrainosus; I51.7 Cardiomegaly; I34.0 Nonrheumatic mitral (valve) insufficiency; I35.8 Other nonrheumatic aortic valve disorders
CPT/HCPCS: 93306

== ENCOUNTER 2024-12-22 09:25 | Outpatient (RCR) | payer MEDICAID, SELFPAY | END 2025-01-13 23:59 | disposition home or self-care (01) | LOC: SPT 09:25 | PROVIDERS: Visit Provider Orthopaedic Surgery | DX: M54.2 Cervicalgia (principal); G89.29 Other chronic pain | CPT/HCPCS: 97161 ==

== ENCOUNTER 2024-12-28 08:01 | Outpatient (CLI) | payer MEDICAID, SELFPAY ==
--- NOTE | 2024-12-28 09:00 | CT_ITS ---
WS: [id number] CTA HEAD AND NECK TECHNIQUE: Contrast enhanced CTA of the head and neck with coronal and sagittal reformatted images and maximum intensity projection (MIP) images. NASCET criteria utilized. CLINICAL INFORMATION: G40.909 - Epilepsy, unspecified, not intractable, without... COMPARISON: None. DLP: 1234.[address] scans at [facility] use at least one of these dose optimization techniques: automated exposure control; mA and/or kV adjustment per patient size (includes targeted exams where dose is matched to clinical indication); or iterative reconstruction. FINDINGS: No evidence intracranial hemorrhage or mass effect. Normal tomas-white differentiation. No hydrocephalus. RIGHT: RIGHT common carotid artery is patent. No significant RIGHT ICA stenosis. RIGHT ICA is patent to the skull base. Tortuous cervical ICA at the skull base. LEFT: LEFT common carotid artery is patent. No significant LEFT ICA stenosis. LEFT ICA is patent to the skull base. Tortuous LEFT ICA at the skull base. RIGHT dominant vertebral artery. Smaller but patent LEFT vertebral artery. Proximal basilar artery is patent. Normal vascularity to the OIL FIRE SPECIALIST territory bilaterally. Persistent LEFT OIL FIRE SPECIALIST. Both ICAs are patent at the skull base. Normal vascularity to the DEANDRA and MCA territories bilaterally. No evidence of proximal flow-limiting stenosis. Hypoplastic LEFT A1 segment. Lung apices are well aerated. Proximal subclavian arteries are patent. Mild mucosal thickening in the paranasal sinuses. Mastoid air cells are well aerated. CT/CT angio headneck* [id number] IMPRESSION: 1. No significant RIGHT proximal ICA stenosis 2. No significant LEFT proximal ICA stenosis 3. Persistent LEFT OIL FIRE SPECIALIST. 4. Hypoplastic LEFT A1 segment. 5. LEFT vertebral artery arises directly from the aortic arch. Bovine arch. 6. No evidence of flow-limiting intracranial stenosis.
[2024-12-28] MEDS: iohexol 350 mg/mL 500 mL Btl (per mL) IV (09:40)
== END 2024-12-28 08:02 | disposition home or self-care (01) ==
PROVIDERS: PCP Family Medicine; Visit Provider Specialist
DX: G40.909 Epilepsy, unspecified, not intractable, without status epilepticus (principal); R93.0 Abnormal findings on diagnostic imaging of skull and head, not elsewhere classified
CPT/HCPCS: 70496; 70498

== ENCOUNTER 2025-02-25 14:32 | Emergency (ER) | payer MEDICAID, SELFPAY ==
[2025-02-25] VITALS (8 sets, daily range): BP systolic 112–156; BP diastolic 79–106; PULSE 73–82; RESP 14–22; O2SAT 93–99
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
[2025-02-25 14:48] LABS: Basophils # 0.1 10^3/uL (0.0-0.1); Eosinophils # 0.9 10^3/uL (0.0-0.8); Eosinophils % 8.9 %; Hematocrit 39.6 % (36-47); Lymphocytes # 2.6 10^3/uL (0.8-4.8); Lymphocytes % 26.4 %; Mean Corpuscular HGB Conc 32.6 g/dL (30-55); Mean Corpuscular Hemoglobin 27.3 pg (27-33); Mean Corpuscular Volume 83.9 fl (85-98); Monocytes # 0.5 10^3/uL (0.2-0.9); Neutrophils # 5.65 10^3/uL (1.8-7.7); Neutrophils % 58.4 %; Nucleated Red Blood Cells % 0 %; Platelet Count 295 10^3/cmm (157-399); Red Blood Count 4.72 10^6/uL (3.85-5.65); Red Cell Distribution Width 13.6 % (12.1-15.1); White Blood Count 9.68 10^3/uL (3.29-11.43)
[2025-02-25] MEDS: iohexol 350 mg/mL 500 mL Btl (per mL) IV (14:58)
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
[2025-02-25 15:05] LABS: Alanine Aminotransferase 17 U/L (0-33); Albumin Level 4.2 g/dL (3.5-5.2); Alkaline Phosphatase 103 U/L (35-105); Anion Gap 14.4 (5-19); Aspartate Amino Transferase 23 U/L (0-32); Blood Urea Nitrogen 9 mg/dL (6-20); C Reactive Protein 7.8 mg/L (0.0-4.9); Calcium 8.9 mg/dL (8.5-10.5); Carbon Dioxide 26 mmol/L (22-29); Chloride 104 mmol/L (98-107); Globulin 2.8 g/dL (1.3-4.6); Glomerular Filtration Rate 132.8 mL/min (90-130); Glucose 118 mg/dL (65-115); Osmolality Calculated 290 mOsm/kg (285-295); Potassium 4.4 mmol/L (3.5-5.1); Sodium 140 mmol/L (136-145); Total Bilirubin 0.2 mg/dL (0.15-1.2)
[2025-02-25 15:06] LABS: Lactic Sepsis W/Reflex 1.3 mmol/L (0.5-2.2)
[2025-02-25] MEDS: sodium chloride 0.9% 1,000 ML 999 ML IV (15:30)
[2025-02-25] MEDS: levETIRAcetam 1,000 MG/100 ML PREMIX 400 MG IV (15:40)
--- NOTE | 2025-02-25 15:40 | PC.NURSE ---
on pt arrival seizure pads applied to bedrails, suction set up at bedside, airway patent.
[2025-02-25 15:59] LABS: ABG PCO2 49.9 mmHg (35-45); ABG PH Result 7.33 (7.35-7.45); Alveolar-Arterial Oxygen Gradi 8.3 mmHg (5-10); Arterial Blood Gas Hematocrit 36.1 % (37-47); Base Excess ABG 0.1 mmol/L (-2.0-2.0); Blood Gas Allen Test Pos; Blood Gas LPM 2.5 %; Blood Gas Operator Identificat MBB; Blood Gas Sample Site Radial, left; Blood Gas Sample Type Arterial; Carboxyhemoglobin 1.1 %THgb (0.4-20.1); HCO3 ABG 26.5 mmol/L (22-26); Ionized Calcium Level - ABG 1.2 mmol/L (1.1-1.4); Oxygen Device NC; PO2 ABG 88.9 mmHg (80.0-100.0); PO2 FiO2 Ratio Arterial Blood 296; Potassium Level - ABG 4.1 mmol/L (3.5-5.0); Total Hemoglobin 11.8 g/dL (12-16)
--- NOTE | 2025-02-25 16:01 | PC.NURSE ---
family at bedside, updated on status. pt c/o nausea, sit HOB up, suction available at bedside.
--- NOTE | 2025-02-25 17:19 | PC.NURSE ---
discharge delayed d/t pt mental status, per Dr. Joel to delay until pt alert and ambulatory
[2025-02-25] MEDS: morphine 4 mg/mL SDV 1 mL IVP (19:02)
[2025-02-25] MEDS: ondansetron 2 mg/ML SDV 2 mL 4 MG IVP (19:04)
== END 2025-02-25 20:14 | disposition home or self-care (01) ==
PROVIDERS: Emergency Provider Emergency Medicine; PCP Family Medicine
DX: S40.011A Contusion of right shoulder, initial encounter (principal); R56.9 Unspecified convulsions; V89.2XXA Person injured in unspecified motor-vehicle accident, traffic, initial encounter; Z86.73 Personal history of transient ischemic attack (TIA), and cerebral infarction without residual deficits
CPT/HCPCS: 36600; 70450; 71045; 71260; 72125; 73590; 74177; 80051; 80053; 82330; 82805; 83605; 85025; 86140; 96374; 96375; 99285; 99291; J1953; J2270; J2405; J7030

== ENCOUNTER 2025-03-05 11:30 | Emergency (ER) | payer MEDICAID, SELFPAY ==
[2025-03-05 12:25] VITALS: BP 153/96; PULSE 75; TEMP 36.2; O2SAT 97; BMI 36.0
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
[2025-03-05] MEDS: HYDROcodone-acetaminophen 5-325 mg Tablet 1 TAB PO (14:06)
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
[2025-03-05 15:16] VITALS: BP 152/97; PULSE 72; O2SAT 98
== END 2025-03-05 15:15 | disposition home or self-care (01) ==
PROVIDERS: Emergency Provider Physician Assistant; PCP Family Medicine
DX: S80.11XD Contusion of right lower leg, subsequent encounter (principal); S60.212D Contusion of left wrist, subsequent encounter; V89.2XXD Person injured in unspecified motor-vehicle accident, traffic, subsequent encounter; Z86.73 Personal history of transient ischemic attack (TIA), and cerebral infarction without residual deficits
CPT/HCPCS: 73110; 99283; J9999

== ENCOUNTER 2025-04-11 07:10 | Emergency (ER) | payer MEDICAID, SELFPAY ==
--- NOTE | 2025-04-11 07:13 | ECG_ITS ---
[facility]25[facility]11 Pat Name: Eliana Julio Department: Room: Gender: Female Sticker Hand: : 1980 Requested By: Tj Tello Order Number: [id number] Reading MD: Measurements Intervals [place] Rate: 72 P: 2 OR: 180 QRS: -8 QRSD: 105 T: 103 QT: 414 QTc: 456 Interpretive Statements SINUS RHYTHM POSSIBLE INFERIOR MYOCARDIAL INFARCTION , PROBABLY OLD [30 ms Q WAVE IN II/aVF] [email or web address]
--- NOTE | 2025-04-11 07:13 | XRR_ITS ---
PROCEDURE INFORMATION: Exam: XR Chest Exam date and time: 04/11/2025 7:42 AM Age: 44 years old Clinical indication: Cough and dyspnea; Additional info: Dyspnea/cough TECHNIQUE: Imaging protocol: Radiologic exam of the chest. Views: 1 view. COMPARISON: CR (CHEST, ) 02/25/2025 3:01 PM FINDINGS: Lungs: No consolidation. Pleural spaces: No sizable pleural effusion or pneumothorax. Heart/Mediastinum: No cardiomegaly. Bones/joints: Unremarkable. XR/XR chest 1V portable [id number] IMPRESSION: No acute intrathoracic findings.
[2025-04-11 07:19] VITALS: BP 129/90; PULSE 78; RESP 17; TEMP 36.6; O2SAT 94; BMI 34.4
[2025-04-11 07:34] VITALS: BP 129/90; PULSE 81; RESP 18; O2SAT 94
--- NOTE | 2025-04-11 07:39 | W.ED.SOB ---
HPI - SOB/Dyspnea General: Chief Complaint: Shortness of Breath/Dyspnea Stated Complaint: SOB Time Seen by Provider: 04/11/25 07:13 History of Present Illness: HPI Narrative: 44-year-old female presents emergency room complaining of shortness of breath for the last 2 days. Worse when she lays down and worse with exertion although she denies any chest pain. She has a known history of asthma she has been using her rescue inhaler and DuoNebs from her nebulizer more regularly but does not feel like she is getting a lot of relief from that. No fever. She feels a mild chest pressure as she describes it as difficult time coughing things up. No significant abdominal pain. No hemoptysis she has no history of any coronary artery disease or heart failure. Associated symptoms: Reports chest congestion; Deny abdominal pain, chest pain or fever(s) Related Data Home Medications ?Medication ?Instructions ?Recorded ?Confirmed omeprazole 40 mg capsule,delayed 40 mg PO BID 03/04/22 02/25/25 release epinephrine 0.3 mg/0.3 mL 0.3 mg IM Q4H PRN Allergic Reaction 07/14/22 02/25/25 injection, auto-injector (EpiPen 2-Alexy) atorvastatin 80 mg tablet 80 mg PO DAILY 10/11/24 02/25/25 cyclobenzaprine 10 mg tablet 10 mg PO TID PRN Muscle Spasm 10/11/24 02/25/25 ezetimibe 10 mg tablet 10 mg PO ONCE 10/11/24 02/25/25 fluconazole 150 mg tablet 150 mg PO .one a week 10/11/24 02/25/25 albuterol sulfate 90 mcg/actuation 1 inh inhalation QID 11/01/24 02/25/25 aerosol inhaler carbamazepine 400 mg 400 mg PO BID 02/25/25 02/25/25 tablet,extended release,12 hr fluticasone 250 mcg-salmeterol 50 1 ea inhalation BID 02/25/25 02/25/25 mcg/dose blistr powdr for inhalation (Advair Diskus) prazosin 5 mg capsule 5 mg PO QPM 02/25/25 02/25/25 Previous Rx's ?Medication ?Instructions ?Recorded levetiracetam 500 mg tablet 500 mg PO BID #60 tabs 01/02/25 buspirone 10 mg tablet 10 mg PO BID #60 tabs 02/06/25 hydroxyzine HCl 50 mg tablet 50 mg PO QID PRN anxiety/insomnia 02/06/25 #120 tabs propranolol 20 mg tablet 20 mg PO BID PRN anxiety #60 tabs 02/06/25 quetiapine 100 mg tablet 100 mg PO .HS #30 tabs 02/06/25 venlafaxine 150 mg tablet,extended 300 mg (2 x 150 mg) PO DAILY #60 02/06/25 release 24 hr tabs cyclobenzaprine 10 mg tablet 10 mg PO Q8H PRN muscle spasm #20 02/25/25 tabs prednisone 20 mg tablet 20 mg PO TID #15 tabs 04/11/25 Allergies Allergy/AdvReac Type Severity Reaction Status Date / Time Latex, Natural Rubber Allergy Severe ALGY-Difficulty Verified 03/05/25 12:31 Breathing lamotrigine Allergy Intermediate ALGY-Rash Verified 03/05/25 12:31 2-octyl cyanoacrylate Allergy Unknown Unknown Verified 03/05/25 12:31 Alpha-Gal Allergy ADR-Abdominal Verified 03/05/25 12:31 (Ovtofmoqi-Dhbox-5,3-Gala Pain aspirin Allergy ALGY-Difficulty Verified 03/05/25 12:31 Breathing banana Allergy Unknown Verified 03/05/25 12:31 doxycycline Allergy Unknown Verified 03/05/25 12:31 NSAIDS (Non-Steroidal Allergy ALGY-Difficulty Verified 03/05/25 12:31 Anti-Inflamma Breathing orange Allergy Unknown Verified 03/05/25 12:31 pineapple Allergy Unknown Verified 03/05/25 12:31 trazodone Allergy Unknown Verified 03/05/25 12:31 watermelon Allergy Unknown Verified 03/05/25 12:31 topiramate AdvReac Severe Rash & Verified 03/05/25 12:31 itching. dermabond Allergy ALGY-Bliste Uncoded 03/05/25 12:31 r Review of Systems Const: Denies: fever(s) or chills Card: Denies: chest pain Resp: Reports: dyspnea, non-productive cough, wheezing and chest congestion GI: Denies: abdominal pain : Denies: dysuria, urinary frequency or urinary urgency Musc: Denies: neck pain or back pain Skin/Breast: Denies: rash PFSH ED PFSH: Medical History Psychiatric care History of umbilical hernia Anxiety Asthma CVA (cerebral vascular accident) Migraine Surgical History History of surgery on arm History of resection of small bowel History of laparotomy History of mandibular surgery Status post cholecystectomy Status post rotator cuff repair Status post hernia repair Family History Mother Headache Depression Father Stroke Hypertension Brother Depression Stroke Sister Depression Anxiety Colon cancer Social History Smoking and tobacco/nicotine status: never used tobacco/nicotine Alcohol intake: never Substance/Drug Use: never Physical Exam Const: GENERAL APPEARANCE: cooperative ORIENTATION/CONSCIOUSNESS: Yes awake, Yes oriented to person, Yes oriented to place and Yes oriented to time HENMT: COMMON NORMALS: normocephalic, atraumatic and hearing grossly normal bilaterally HEAD & SCALP: normocephalic and atraumatic Resp: AUSCULTATION: rhonchi and wheezes Cardio: COMMON NORMALS: regular rate, regular rhythm and No murmurs present (Cardio) RATE: regular rate RHYTHM: regular rhythm GI: COMMON NORMALS: Soft to palpation and No hepatosplenomegaly present AUSCULTATION: Yes normoactive bowel sounds PALPATION: Yes Soft to palpation, No Tenderness to palpation present (GI), No Guarding due to palpation present (GI) and Yes No hepatosplenomegaly present Extremity: COMMON NORMALS: normal to inspection, capillary refill normal, no clubbing, cyanosis or edema, no calf tenderness and no pedal edema Neuro: SENSORIUM/ORIENTATION: Yes oriented to person, Yes oriented to place and Yes oriented to time Skin: COMMON NORMALS: no rashes or lesions noted GENERAL SKIN EXAM: no rashes or lesions noted Course Vital Signs: Vital signs: Vital Signs Temperature 97.9 F 04/11/25 07:19 Pulse Rate 74 04/11/25 08:49 Respiratory Rate 22 H 04/11/25 08:04 Blood Pressure 127/64 04/11/25 08:49 Pulse Oximetry 93 04/11/25 08:49 Oxygen Delivery Me thod Room Air 04/11/25 08:04 MDM - SOB/Dyspnea Medical Decision Making Improved after steroids and nebulizer. Lung sounds much improved. Chest x-ray did not show any acute infiltrates white count normal. Will discharge patient home on steroid taper continue aggressive use of albuterol recheck with primary care doctor within the next week return if has further problems Medical Records I reviewed the patient's medical records. Lab Data I reviewed the patient's lab results. 04/11/25 07:38 04/11/25 07:38 Labs/Radiology: Radiology Impressions Chest X-Ray 04/11/25 07:13 IMPRESSION: No acute intrathoracic findings. Laboratory Results WBC 7.35 10^3/uL (3.29-11.43) 04/11/25 07:38 RBC 4.67 10^6/uL (3.85-5.65) 04/11/25 07:38 Hgb 12.80 g/dL (11.27-16.99) 04/11/25 07:38 Hct 39.0 % (36-47) 04/11/25 07:38 MCV 83.5 fl (85-98) L 04/11/25 07:38 MCH 27.4 pg (27-33) 04/11/25 07:38 MCHC 32.8 g/dL (30-55) 04/11/25 07:38 RDW 14.5 % (12.1-15.1) 04/11/25 07:38 Plt Count 255 10^3/cmm (157-399) 04/11/25 07:38 MPV 8.3 fL (7.4-10.4) 04/11/25 07:38 Neut % (Auto) 42.6 % 04/11/25 07:38 Lymph % (Auto) 33.5 % 04/11/25 07:38 [place] % (Auto) 5.9 % 04/11/25 07:38 Eos % (Auto) 16.2 % 04/11/25 07:38 Baso % (Auto) 1.5 % 04/11/25 07:38 Neut # (Auto) 3.14 10^3/uL (1.8-7.7) 04/11/25 07:38 Lymph # (Auto) 2.5 10^3/uL (0.8-4.8) 04/11/25 07:38 [place] # (Auto) 0.4 10^3/uL (0.2-0.9) 04/11/25 07:38 Eos # (Auto) 1.2 10^3/uL (0.0-0.8) H 04/11/25 07:38 Baso # (Auto) 0.1 10^3/uL (0.0-0.1) 04/11/25 07:38 Nucleated RBC % (auto) 0 % 04/11/25 07:38 Nucleated RBCs # 0.0 /100WBC 04/11/25 07:38 Sodium 139 mmol/L (136-145) 04/11/25 07:38 Potassium 3.8 mmol/L (3.5-5.1) 04/11/25 07:38 Chloride 103 mmol/L (98-107) 04/11/25 07:38 Carbon Dioxide 26 mmol/L (22-29) 04/11/25 07:38 Anion Gap 13.8 (5-19) 04/11/25 07:38 BUN 11 mg/dL (6-20) 04/11/25 07:38 Creatinine 0.5 mg/dL (0.5-0.9) 04/11/25 07:38 GFR Calculation 132.8 mL/min (90-130) H 04/11/25 07:38 Glucose 81 mg/dL (65-115) 04/11/25 07:38 Calculated Osmolality 286 mOsm/kg (285-295) 04/11/25 07:38 Calcium 9.0 mg/dL (8.5-10.5) 04/11/25 07:38 Total Bilirubin 0.2 mg/dL (0.15-1.2) 04/11/25 07:38 AST 17 U/L (0-32) 04/11/25 07:38 ALT 14 U/L (0-33) 04/11/25 07:38 Alkaline Phosphatase 117 U/L (35-105) H 04/11/25 07:38 C-Reactive Protein 9.5 mg/L (0.0-4.9) H 04/11/25 07:38 Total Protein 6.8 g/dL (6.6-8.7) 04/11/25 07:38 Albumin 4.0 g/dL (3.5-5.2) 04/11/25 07:38 Globulin 2.8 g/dL (1.3-4.6) 04/11/25 07:38 Influenza A (PCR) Negative (Negative) 04/11/25 07:33 Influenza Type B (PCR) Negative (Negative) 04/11/25 07:33 RSV (PCR) Negative (Negative) 04/11/25 07:33 SARS-CoV-2 (PCR) Negative (Negative) 04/11/25 07:33 All radiology interpretation(s) finalized by discharge Discharge Plan Discharge Patient Disposition: Home Clinical Impression: Asthma with exacerbation Condition: Stable Prescriptions: New prednisone 20 mg tablet 20 mg PO TID Qty: 15 0RF Rx Instructions: 1 p.o. 3 times daily x3 days, 1 p.o. twice daily x2 days, 1 p.o. daily x2 days No Action omeprazole 40 mg capsule,delayed release(DR/EC) 40 mg PO BID albuterol sulfate 90 mcg/actuation HFA aerosol inhaler 1 inh inhalation QID quetiapine 100 mg tablet 100 mg PO .HS Qty: 30 2RF venlafaxine 150 mg tablet extended release 24hr 300 mg PO DAILY Qty: 60 2RF buspirone 10 mg tablet 10 mg PO BID Qty: 60 2RF hydroxyzine HCl 50 mg tablet 50 mg PO QID PRN (Reason: anxiety/insomnia) Qty: 120 2RF propranolol 20 mg tablet 20 mg PO BID PRN (Reason: anxiety) Qty: 60 2RF cyclobenzaprine 10 mg tablet 10 mg PO TID PRN (Reason: Muscle Spasm) atorvastatin 80 mg tablet 80 mg PO DAILY fluconazole 150 mg tablet 150 mg PO .one a week ezetimibe 10 mg tablet 10 mg PO ONCE levetiracetam 500 mg tablet 500 mg PO BID Qty: 60 4RF Rx Instructions: TAKE 1 TABLET BY MOUTH TWICE DAILY epinephrine [EpiPen 2-Alexy] 0.3 mg/0.3 mL Auto-Injector 0.3 mg IM Q4H PRN (Reason: Allergic Reaction) fluticasone propion-salmeterol [Advair Diskus] 250-50 mcg/dose blister with device 1 ea INHALATION BID prazosin 5 mg capsule 5 mg PO QPM carbamazepine 400 mg tablet extended release 12 hr 400 mg PO BID Rx Instructions: TAKE 1 TABLET BY MOUTH TWICE DAILY; AFTER THE FIRST MONTH cyclobenzaprine 10 mg tablet 10 mg PO Q8H PRN (Reason: muscle spasm) Qty: 20 0RF Discharge Orders: Discharge ED (Routine); Ordered 04/11/25 Ordered By: Tj Lee Referrals: Marcos Dumas MD [Primary Care Provider, [facility]] Discharge Diet: Usual diet Discharge Activity: Increase activity as tolerated Patient Instructions: Opioid Safety, Pain Management Activity Restrictions/Additional Instructions: Thank you for choosing [facility] for your healthcare needs today. It is very important that you follow up as instructed or that you return to the Emergency Department should you have concerns or if your condition changes or worsens in any way. You were seen in the emergency room with complaints of shortness of breath. Breathing did improve after steroids and nebulizers. Swabs for flu COVID and RSV were negative your white count was normal. Chest x-ray did not show any acute abnormalities. Recommend a steroid taper regular use of nebulizers. Follow-up with your primary care doctor in the next 2 to 3 days continue your other prescribed inhaled medications return if you have further problems. Print Language: Portuguese Coding Level of Care Code ED Calculator Operator for Joey Castro
[2025-04-11 07:46] LABS: Basophils # 0.1 10^3/uL (0.0-0.1); Basophils % 1.5 %; Eosinophils # 1.2 10^3/uL (0.0-0.8); Eosinophils % 16.2 %; Lymphocytes # 2.5 10^3/uL (0.8-4.8); Lymphocytes % 33.5 %; Mean Corpuscular HGB Conc 32.8 g/dL (30-55); Mean Corpuscular Hemoglobin 27.4 pg (27-33); Mean Corpuscular Volume 83.5 fl (85-98); Mean Platelet Volume 8.3 fL (7.4-10.4); Monocytes # 0.4 10^3/uL (0.2-0.9); Monocytes % 5.9 %; Neutrophils # 3.14 10^3/uL (1.8-7.7); Neutrophils % 42.6 %; Nucleated Red Blood Cells % 0 %; Platelet Count 255 10^3/cmm (157-399); Red Blood Count 4.67 10^6/uL (3.85-5.65); Red Cell Distribution Width 14.5 % (12.1-15.1); White Blood Count 7.35 10^3/uL (3.29-11.43)
[2025-04-11] MEDS: ipratropium-albuterol 3 mL Neb INHALATION (08:00)
[2025-04-11 08:04] VITALS: PULSE 68; RESP 22; O2SAT 91
[2025-04-11] MEDS: methylPREDNISolone sod succ 125 mg/2 mL INJ IVP (08:05)
[2025-04-11 08:09] LABS: Alanine Aminotransferase 14 U/L (0-33); Alkaline Phosphatase 117 U/L (35-105); Anion Gap 13.8 (5-19); Aspartate Amino Transferase 17 U/L (0-32); Blood Urea Nitrogen 11 mg/dL (6-20); Carbon Dioxide 26 mmol/L (22-29); Chloride 103 mmol/L (98-107); Globulin 2.8 g/dL (1.3-4.6); Glomerular Filtration Rate 132.8 mL/min (90-130); Glucose 81 mg/dL (65-115); Osmolality Calculated 286 mOsm/kg (285-295); Potassium 3.8 mmol/L (3.5-5.1); Sodium 139 mmol/L (136-145); Total Bilirubin 0.2 mg/dL (0.15-1.2); Total Protein 6.8 g/dL (6.6-8.7)
[2025-04-11 08:10] LABS: C Reactive Protein 9.5 mg/L (0.0-4.9)
[2025-04-11 08:25] LABS: Influenza A NEGATIVE (Negative); Influenza B NEGATIVE (Negative); Respiratory Syncytial Virus Ce NEGATIVE (Negative); SARS-CoV-2 PCR NEGATIVE (Negative)
[2025-04-11 08:49] VITALS: BP 127/64; PULSE 74; O2SAT 93
== END 2025-04-11 08:50 | disposition home or self-care (01) ==
PROVIDERS: Emergency Provider Family Medicine; PCP Family Medicine
DX: J45.901 Unspecified asthma with (acute) exacerbation (principal); Z11.52 Encounter for screening for COVID-19
CPT/HCPCS: 36415; 71045; 80053; 85025; 86140; 87637; 93005; 94640; 96374; 99285; J2919; J9999

== ENCOUNTER 2025-04-25 06:16 | Emergency (ER) | payer MEDICAID, SELFPAY ==
[2025-04-25] VITALS (8 sets, daily range): BP systolic 135–147; BP diastolic 87–102; PULSE 66–76; RESP 18–20; TEMP 36.7; O2SAT 92–96; BMI 34.4
--- NOTE | 2025-04-25 06:32 | XR_ITS ---
WS: [id number] PORTABLE CHEST HISTORY: dyspnea/cough COMPARISON: 04/11/2025 Lungs are clear and well expanded. No pleural effusion or pneumothorax. Cardiac size: Normal. Mediastinum/Aorta: Normal mediastinum. Mild S-shaped curvature thoracolumbar spine. XR/XR chest 1V portable [id number] IMPRESSION: Unremarkable portable chest.
--- NOTE | 2025-04-25 06:32 | ECG_ITS ---
[employer] Test Date: 2025-04-25 Pat Name: Eliana Julio Department: Room: Gender: Female [employer] Reading [employer]: : 1980 Requested By: Tj Tello Order Number: [id number] Sylvia MD: Charisma Ozuna M.D. Measurements Intervals [place] Rate: 75 P: -14 ME: 163 QRS: -16 QRSD: 100 T: 48 QT: 389 QTc: 436 Interpretive Statements SINUS RHYTHM NONSPECIFIC T-WAVE ABNORMALITY Compared to ECG 04/11/2025 07:22:25 T-wave abnormality now present Myocardial infarct finding no longer present Electronically Signed On 04-26-2025 22:05:35 CDT by Charisma Ozuna M.D. [email or web address]
--- NOTE | 2025-04-25 06:38 | W.ED.SOB ---
HPI - SOB/Dyspnea General: Chief Complaint: Shortness of Breath/Dyspnea Stated Complaint: SOB(1wk) Time Seen by Provider: 04/25/25 06:25 History of Present Illness: HPI Narrative: 44-year-old female presents emergency room complaining of shortness of breath for the last week. Patient has a nonproductive cough along with chest congestion. She is seen 2 weeks ago and given a course of steroids which seemed to help. She denies any fever no chest pain no hemoptysis. No recent changes in her inhaled medicines Associated symptoms: Reports chest congestion; Deny abdominal pain, chest pain or fever(s) Related Data Home Medications ?Medication ?Instructions ?Recorded ?Confirmed omeprazole 40 mg capsule,delayed 40 mg PO BID 03/04/22 02/25/25 release epinephrine 0.3 mg/0.3 mL 0.3 mg IM Q4H PRN Allergic Reaction 07/14/22 02/25/25 injection, auto-injector (EpiPen 2-Alexy) atorvastatin 80 mg tablet 80 mg PO DAILY 10/11/24 02/25/25 cyclobenzaprine 10 mg tablet 10 mg PO TID PRN Muscle Spasm 10/11/24 02/25/25 ezetimibe 10 mg tablet 10 mg PO ONCE 10/11/24 02/25/25 fluconazole 150 mg tablet 150 mg PO .one a week 10/11/24 02/25/25 albuterol sulfate 90 mcg/actuation 1 inh inhalation QID 11/01/24 02/25/25 aerosol inhaler fluticasone 250 mcg-salmeterol 50 1 ea inhalation BID 02/25/25 02/25/25 mcg/dose blistr powdr for inhalation (Advair Diskus) prazosin 5 mg capsule 5 mg PO QPM 02/25/25 02/25/25 Previous Rx's ?Medication ?Instructions ?Recorded levetiracetam 500 mg tablet 500 mg PO BID #60 tabs 01/02/25 buspirone 10 mg tablet 10 mg PO BID #60 tabs 02/06/25 hydroxyzine HCl 50 mg tablet 50 mg PO QID PRN anxiety/insomnia 02/06/25 #120 tabs propranolol 20 mg tablet 20 mg PO BID PRN anxiety #60 tabs 02/06/25 quetiapine 100 mg tablet 100 mg PO .HS #30 tabs 02/06/25 venlafaxine 150 mg tablet,extended 300 mg (2 x 150 mg) PO DAILY #60 02/06/25 release 24 hr tabs cyclobenzaprine 10 mg tablet 10 mg PO Q8H PRN muscle spasm #20 02/25/25 tabs prednisone 20 mg tablet 20 mg PO TID #15 tabs 04/11/25 carbamazepine 400 mg 400 mg PO BID 90 days #180 tabs 04/24/25 tablet,extended release,12 hr ipratropium 0.5 mg-albuterol 3 mg 3 ml inhalation Q4H PRN shortness 04/25/25 (2.5 mg base)/3 mL nebulization of breath or wheezing #90 mL soln levofloxacin 750 mg tablet 750 mg PO DAILY 7 days #7 tabs 04/25/25 methylprednisolone 4 mg tablets in See Rx Instructions PO .COMPLEX 04/25/25 a dose pack (Medrol (Alexy)) #21 ea Allergies Allergy/AdvReac Type Severity Reaction Status Date / Time Latex, Natural Rubber Allergy Severe ALGY-Difficulty Verified 03/05/25 12:31 Breathing lamotrigine Allergy Intermediate ALGY-Rash Verified 03/05/25 12:31 2-octyl cyanoacrylate Allergy Unknown Unknown Verified 03/05/25 12:31 Alpha-Gal Allergy ADR-Abdominal Verified 03/05/25 12:31 (Akpvmhjbz-Qujqe-2,3-Gala Pain aspirin Allergy ALGY-Difficulty Verified 03/05/25 12:31 Breathing banana Allergy Unknown Verified 03/05/25 12:31 doxycycline Allergy Unknown Verified 03/05/25 12:31 NSAIDS (Non-Steroidal Allergy ALGY-Difficulty Verified 03/05/25 12:31 Anti-Inflamma Breathing orange Allergy Unknown Verified 03/05/25 12:31 pineapple Allergy Unknown Verified 03/05/25 12:31 trazodone Allergy Unknown Verified 03/05/25 12:31 watermelon Allergy Unknown Verified 03/05/25 12:31 topiramate AdvReac Severe Rash & Verified 03/05/25 12:31 itching. dermabond Allergy ALGY-Bliste Uncoded 03/05/25 12:31 r Review of Systems Const: Denies: fever(s) or chills Card: Denies: chest pain Resp: Reports: dyspnea, productive cough, wheezing and chest congestion GI: Denies: abdominal pain : Denies: dysuria, urinary frequency or urinary urgency Musc: Denies: neck pain or back pain Skin/Breast: Denies: rash PFSH ED PFSH: Medical History Psychiatric care History of umbilical hernia Anxiety Asthma CVA (cerebral vascular accident) Migraine Surgical History History of surgery on arm History of resection of small bowel History of laparotomy History of mandibular surgery Status post cholecystectomy Status post rotator cuff repair Status post hernia repair Family History Mother Headache Depression Father Stroke Hypertension Brother Depression Stroke Sister Depression Anxiety Colon cancer Social History Smoking and tobacco/nicotine status: never used tobacco/nicotine Alcohol intake: never Substance/Drug Use: never Physical Exam Const: GENERAL APPEARANCE: cooperative ORIENTATION/CONSCIOUSNESS: Yes awake, Yes oriented to person, Yes oriented to place and Yes oriented to time HENMT: COMMON NORMALS: normocephalic, atraumatic and hearing grossly normal bilaterally HEAD & SCALP: normocephalic and atraumatic Resp: AUSCULTATION: wheezes Cardio: COMMON NORMALS: regular rate, regular rhythm and No murmurs present (Cardio) RATE: regular rate RHYTHM: regular rhythm GI: COMMON NORMALS: Soft to palpation and No hepatosplenomegaly present AUSCULTATION: Yes normoactive bowel sounds PALPATION: Yes Soft to palpation, No Tenderness to palpation present (GI), No Guarding due to palpation present (GI) and Yes No hepatosplenomegaly present Extremity: COMMON NORMALS: normal to inspection, capillary refill normal, no clubbing, cyanosis or edema, no calf tenderness and no pedal edema Neuro: SENSORIUM/ORIENTATION: Yes oriented to person, Yes oriented to place and Yes oriented to time Skin: COMMON NORMALS: no rashes or lesions noted GENERAL SKIN EXAM: no rashes or lesions noted Course Vital Signs: Vital signs: Vital Signs Temperature 98.0 F 04/25/25 06:24 Pulse Rate 73 04/25/25 09:19 Respiratory Rate 18 04/25/25 06:45 Blood Pressure 141/88 04/25/25 09:19 Pulse Oximetry 96 04/25/25 09:19 Oxygen Delivery Me thod Room Air 04/25/25 08:28 MDM - SOB/Dyspnea Medical Decision Making No acute infiltrates on x-ray. Patient improved after nebulizers and steroids. Discharged home on steroid taper continue to use DuoNebs as needed at home will discharge home BioBiotic this patient has had the symptoms for greater than 10 days. Levofloxacin 750 daily for 7 days return if has further problems. Medical Records I reviewed the patient's medical records. Lab Data I reviewed the patient's lab results. 04/25/25 06:30 04/25/25 06:30 Labs/Radiology: Radiology Impressions Chest X-Ray 04/25/25 06:32 IMPRESSION: Unremarkable portable chest. Laboratory Results WBC 6.20 10^3/uL (3.29-11.43) 04/25/25 06:30 RBC 4.53 10^6/uL (3.85-5.65) 04/25/25 06:30 Hgb 12.40 g/dL (11.27-16.99) 04/25/25 06:30 Hct 37.9 % (36-47) 04/25/25 06:30 MCV 83.7 fl (85-98) L 04/25/25 06:30 MCH 27.4 pg (27-33) 04/25/25 06:30 MCHC 32.7 g/dL (30-55) 04/25/25 06:30 RDW 14.6 % (12.1-15.1) 04/25/25 06:30 Plt Count 256 10^3/cmm (157-399) 04/25/25 06:30 MPV 8.2 fL (7.4-10.4) 04/25/25 06:30 Neut % (Auto) 41.5 % 04/25/25 06:30 Lymph % (Auto) 41.8 % 04/25/25 06:30 [place] % (Auto) 5.8 % 04/25/25 06:30 Eos % (Auto) 9.5 % 04/25/25 06:30 Baso % (Auto) 1.1 % 04/25/25 06:30 Neut # (Auto) 2.57 10^3/uL (1.8-7.7) 04/25/25 06:30 Lymph # (Auto) 2.6 10^3/uL (0.8-4.8) 04/25/25 06:30 [place] # (Auto) 0.4 10^3/uL (0.2-0.9) 04/25/25 06:30 Eos # (Auto) 0.6 10^3/uL (0.0-0.8) 04/25/25 06:30 Baso # (Auto) 0.1 10^3/uL (0.0-0.1) 04/25/25 06:30 Nucleated RBC % (auto) 0 % 04/25/25 06:30 Nucleated RBCs # 0.0 /100WBC 04/25/25 06:30 Sodium 142 mmol/L (136-145) 04/25/25 06:30 Potassium 3.6 mmol/L (3.5-5.1) 04/25/25 06:30 Chloride 105 mmol/L (98-107) 04/25/25 06:30 Carbon Dioxide 24 mmol/L (22-29) 04/25/25 06:30 Anion Gap 16.6 (5-19) 04/25/25 06:30 BUN 11 mg/dL (6-20) 04/25/25 06:30 Creatinine 0.5 mg/dL (0.5-0.9) 04/25/25 06:30 GFR Calculation 132.8 mL/min (90-130) H 04/25/25 06:30 Glucose 83 mg/dL (65-115) 04/25/25 06:30 Calculated Osmolality 293 mOsm/kg (285-295) 04/25/25 06:30 Calcium 8.9 mg/dL (8.5-10.5) 04/25/25 06:30 Total Bilirubin 0.2 mg/dL (0.15-1.2) 04/25/25 06:30 AST 17 U/L (0-32) 04/25/25 06:30 ALT 15 U/L (0-33) 04/25/25 06:30 Alkaline Phosphatase 87 U/L (35-105) 04/25/25 06:30 Total Protein 6.5 g/dL (6.6-8.7) L 04/25/25 06:30 Albumin 4.0 g/dL (3.5-5.2) 04/25/25 06:30 Globulin 2.5 g/dL (1.3-4.6) 04/25/25 06:30 Influenza A (PCR) Negative (Negative) 04/25/25 06:30 Influenza Type B (PCR) Negative (Negative) 04/25/25 06:30 RSV (PCR) Negative (Negative) 04/25/25 06:30 SARS-CoV-2 (PCR) Negative (Negative) 04/25/25 06:30 All radiology interpretation(s) finalized by discharge Discharge Plan Discharge Patient Disposition: Home Clinical Impression: Asthma exacerbation Condition: Stable Prescriptions: New ipratropium-albuterol 0.5 mg-3 mg(2.5 mg base)/3 mL solution for nebulization 3 ml inhalation Q4H PRN (Reason: shortness of breath or wheezing) Qty: 90 0RF methylprednisolone [Medrol (Alexy)] 4 mg tablets,dose pack See Rx Instructions .ROUTE .COMPLEX Qty: 21 0RF Rx Instructions: orally per package directions levofloxacin 750 mg tablet 750 mg PO DAILY 7 Days Qty: 7 0RF No Action omeprazole 40 mg capsule,delayed release(DR/EC) 40 mg PO BID albuterol sulfate 90 mcg/actuation HFA aerosol inhaler 1 inh inhalation QID quetiapine 100 mg tablet 100 mg PO .HS Qty: 30 2RF venlafaxine 150 mg tablet extended release 24hr 300 mg PO DAILY Qty: 60 2RF buspirone 10 mg tablet 10 mg PO BID Qty: 60 2RF hydroxyzine HCl 50 mg tablet 50 mg PO QID PRN (Reason: anxiety/insomnia) Qty: 120 2RF propranolol 20 mg tablet 20 mg PO BID PRN (Reason: anxiety) Qty: 60 2RF cyclobenzaprine 10 mg tablet 10 mg PO TID PRN (Reason: Muscle Spasm) atorvastatin 80 mg tablet 80 mg PO DAILY fluconazole 150 mg tablet 150 mg PO .one a week ezetimibe 10 mg tablet 10 mg PO ONCE levetiracetam 500 mg tablet 500 mg PO BID Qty: 60 4RF Rx Instructions: TAKE 1 TABLET BY MOUTH TWICE DAILY carbamazepine 400 mg tablet extended release 12 hr 400 mg PO BID 90 Days Qty: 180 3RF epinephrine [EpiPen 2-Alexy] 0.3 mg/0.3 mL Auto-Injector 0.3 mg IM Q4H PRN (Reason: Allergic Reaction) fluticasone propion-salmeterol [Advair Diskus] 250-50 mcg/dose blister with device 1 ea INHALATION BID prazosin 5 mg capsule 5 mg PO QPM cyclobenzaprine 10 mg tablet 10 mg PO Q8H PRN (Reason: muscle spasm) Qty: 20 0RF prednisone 20 mg tablet 20 mg PO TID Qty: 15 0RF Rx Instructions: 1 p.o. 3 times daily x3 days, 1 p.o. twice daily x2 days, 1 p.o. daily x2 days Discharge Orders: Discharge ED (Routine); Ordered 04/25/25 Ordered By: Tj Lee Referrals: Marcos Dumas MD [Primary Care Provider, Family Practice] Patient Instructions: Opioid Safety, Pain Management Activity Restrictions/Additional Instructions: Thank you for choosing [facility] for your healthcare needs today. It is very important that you follow up as instructed or that you return to the Emergency Department should you have concerns or if your condition changes or worsens in any way. You are seen in the emergency room complaints shortness of breath chest x-ray did not show any acute infiltrates. Laboratory work did not show significant abnormality. You improved with steroids and nebulizers given in the emergency room recommend a course of oral steroids and antibiotics continue to use nebulizers at home and your other prescribed inhalers follow-up your primary care doctor if not improving. Print Language: Icelandic Coding Level of Care Code ED Outside Plant Technician for Joey Castro
[2025-04-25] MEDS: dexamethasone 10 mg/mL INJ IM (06:41)
[2025-04-25 06:43] LABS: Basophils # 0.1 10^3/uL (0.0-0.1); Basophils % 1.1 %; Eosinophils # 0.6 10^3/uL (0.0-0.8); Eosinophils % 9.5 %; Hematocrit 37.9 % (36-47); Lymphocytes # 2.6 10^3/uL (0.8-4.8); Lymphocytes % 41.8 %; Mean Corpuscular HGB Conc 32.7 g/dL (30-55); Mean Corpuscular Hemoglobin 27.4 pg (27-33); Mean Corpuscular Volume 83.7 fl (85-98); Mean Platelet Volume 8.2 fL (7.4-10.4); Monocytes # 0.4 10^3/uL (0.2-0.9); Monocytes % 5.8 %; Neutrophils # 2.57 10^3/uL (1.8-7.7); Neutrophils % 41.5 %; Nucleated Red Blood Cells % 0 %; Platelet Count 256 10^3/cmm (157-399); Red Blood Count 4.53 10^6/uL (3.85-5.65); Red Cell Distribution Width 14.6 % (12.1-15.1)
[2025-04-25] MEDS: ipratropium-albuterol 3 mL Neb INHALATION (06:45)
[2025-04-25 07:02] LABS: Alanine Aminotransferase 15 U/L (0-33); Alkaline Phosphatase 87 U/L (35-105); Anion Gap 16.6 (5-19); Aspartate Amino Transferase 17 U/L (0-32); Blood Urea Nitrogen 11 mg/dL (6-20); Calcium 8.9 mg/dL (8.5-10.5); Carbon Dioxide 24 mmol/L (22-29); Chloride 105 mmol/L (98-107); Globulin 2.5 g/dL (1.3-4.6); Glomerular Filtration Rate 132.8 mL/min (90-130); Glucose 83 mg/dL (65-115); Osmolality Calculated 293 mOsm/kg (285-295); Potassium 3.6 mmol/L (3.5-5.1); Sodium 142 mmol/L (136-145); Total Bilirubin 0.2 mg/dL (0.15-1.2); Total Protein 6.5 g/dL (6.6-8.7)
[2025-04-25 07:23] LABS: Influenza A NEGATIVE (Negative); Influenza B NEGATIVE (Negative); Respiratory Syncytial Virus Ce NEGATIVE (Negative); SARS-CoV-2 PCR NEGATIVE (Negative)
== END 2025-04-25 09:22 | disposition home or self-care (01) ==
PROVIDERS: Emergency Provider Family Medicine; PCP Family Medicine
DX: J45.901 Unspecified asthma with (acute) exacerbation (principal); Z11.52 Encounter for screening for COVID-19; Z86.73 Personal history of transient ischemic attack (TIA), and cerebral infarction without residual deficits
CPT/HCPCS: 71045; 80053; 85025; 87637; 93005; 94640; 96372; 99285; J1100; J9999

== ENCOUNTER 2025-05-14 07:58 | Emergency (ER) | payer MEDICAID, SELFPAY ==
--- OUTSIDE RECORDS SUMMARY | 2001-04-01 08:30 | XMS_ITS | Continuity of Care Document ---
Author Organization [facility] Address [id number] [place] [address] [address] [place] [address] Phone Care Team Providers Care Graduate Recruiter Name Role Phone Sundar Gonzales MD Unavailable Unavailable Advance Directives Directive Yes / No Effective Date File Name No Information Encounters Encounter Description Practice Location Reason(s) For Visit Diagnoses Date Provider Providers Copied on Encounter [facility], [id number] [place] [address] [address], [place], [place], [id number], [place] tel:[phone] [address] [place] Xiomara Jackson No Information 1 Janet Kwok. [address] [facility], [facility], [place], [place], [id number], [place]. tel:[phone] Family History Family Member Type Diagnosis Age At Onset No Information Payers Payer name Insurance type Covered green party ID Authoriza tion(s) No Information Social History Type Description Quantity Date Captured Comments Sex Female Smoking Status No Information Chief Complaint And Reason For Visit No Information Reason For Referral Reason For Referral No Information History Of Present Illness Encounter Date Complaint History Of Prese nt Illness No Information Functional Status Date Functional Assessmen t No Information Instructions Date Instruction Additional Infor mation No Information Assessments Type Assessment Date No Information Patient Care Teams Name Effective Dates (start - stop) Status Members No Information
[2025-05-14 08:06] VITALS: BP 134/87; PULSE 86; RESP 18; TEMP 36.8; O2SAT 94; BMI 34.4
--- OUTSIDE RECORDS SUMMARY | 2025-05-14 08:06 | XMS_ITS | Encounter Summary ---
Author Organization [employer] [facility] Address [address] [place] [address] Care Team Providers Care E Commerce Strategist Name Role Phone Aileen Cary DO Primary Care Provid er Encounter Details Date Type Department Care Team (Late st Contact Info) Description 02/27/2003 Outpatient Historical HIS PATIENT IN A BED Andre Aceves MD [address] [place] [address] Merry Lopez MD [address] [place] [address] OTHER CURR COND-ANTEPARTUM (Primary Dx) Social History Tobacco Use Types Packs/Day Years Used Date Smoking Tobacco: Never Assessed Comments Unknown Sex and Gender Information Value Date Recorded Sex Assigned at Not on file Legal Sex Female 2:36 AM INSTALLMENT LOAN COLLECTOR Gender Identity Not on file Sexual Orientation Not on file documented as of this encounter Plan of Treatment Not on file documented as of this encounter Visit Diagnoses Diagnosis Other current maternal conditions classifiable elsewhere, antepartum- Primary documented in this encounter Additional Health Concerns Infection Onset Date Last Indicated Resolved Time R/O COVID-19 10/19/2021 10/19/2021 10/19/2021 7:32 PM INSTALLMENT LOAN COLLECTOR R/O COVID-19 03/30/2022 03/30/2022 03/30/2022 4:47 PM CDT documented as of this encounter Care Teams E Commerce Strategist Relationship Specialty Start Date End Date Aileen Cary DO [facility] [place] [address] PCP - General Pediatrics 07/04/21 documented as of this encounter
--- OUTSIDE RECORDS SUMMARY | 2025-05-14 08:06 | XMS_ITS | Encounter Summary ---
Author Organization [employer] [facility] Address [address] [place] [address] Care Team Providers Care Svp Research & Ebusiness Operations Name Role Phone Aileen Cary DO Primary Care Provid er Encounter Details Date Type Department Care Team (Late st Contact Info) Description 11/17/2002 Outpatient Historical HIS PATIENT IN A BED Andre Aceves MD [address] [place] [address] Merry Lopez MD [address] [place] [address] OTHER CURR COND-ANTEPARTUM (Primary Dx) Social History Tobacco Use Types Packs/Day Years Used Date Smoking Tobacco: Never Assessed Comments Unknown Sex and Gender Information Value Date Recorded Sex Assigned at Not on file Legal Sex Female 2:36 AM REPLANTING MACHINE CREW Gender Identity Not on file Sexual Orientation Not on file documented as of this encounter Plan of Treatment Not on file documented as of this encounter Visit Diagnoses Diagnosis Other current maternal conditions classifiable elsewhere, antepartum- Primary documented in this encounter Additional Health Concerns Infection Onset Date Last Indicated Resolved Time R/O COVID-19 10/19/2021 10/19/2021 10/19/2021 7:32 PM REPLANTING MACHINE CREW R/O COVID-19 03/30/2022 03/30/2022 03/30/2022 4:47 PM CDT documented as of this encounter Care Teams Svp Research & Ebusiness Operations Relationship Specialty Start Date End Date Aileen Cary DO [facility] [place] [address] PCP - General Pediatrics 07/04/21 documented as of this encounter
--- OUTSIDE RECORDS SUMMARY | 2025-05-14 08:06 | XMS_ITS | Encounter Summary ---
Author Organization [facility] Address [address] [place] [address] Care Team Providers Care Biochemistry Technician Name Role Phone Aileen Cary DO Primary Care Provid er Encounter Details Date Type Department Care Team (Late st Contact Info) Description 04/18/2003 Outpatient Historical [facility] Family Medicine Vi Oakes [address] [employer] [facility] [address] [place] [address] [place] [address] [employer] [facility]. [address] [place] [address] Social History Tobacco Use Types Packs/Day Years Used Date Smoking Tobacco: Never Assessed Comments Unknown Sex and Gender Information Value Date Recorded Sex Assigned at Not on file Legal Sex Female 2:36 AM WIRE COATER Gender Identity Not on file Sexual Orientation Not on file documented as of this encounter Plan of Treatment Not on file documented as of this encounter Visit Diagnoses Not on filedocumented in this encounter Additional Health Concerns Infection Onset Date Last Indicated Resolved Time R/O COVID-19 10/19/2021 10/19/2021 10/19/2021 7:32 PM WIRE COATER R/O COVID-19 03/30/2022 03/30/2022 03/30/2022 4:47 PM CDT documented as of this encounter Care Teams Biochemistry Technician Relationship Specialty Start Date End Date Aileen Cary DO [facility] [place] [address] PCP - General Pediatrics 07/04/21 documented as of this encounter
--- OUTSIDE RECORDS SUMMARY | 2025-05-14 08:06 | XMS_ITS | Encounter Summary ---
Author Organization [facility] Address [address] [place] [address] Care Team Providers Care Quality Assurance Monitor Final Name Role Phone Aileen Cary DO Primary Care Provid er Encounter Details Date Type Department Care Team (Late st Contact Info) Description 02/15/2002 Outpatient Historical HIS [facility] Anayeli Christine MD [address] [place] [address] PAIN IN LIMB (Primary Dx) Social History Tobacco Use Types Packs/Day Years Used Date Smoking Tobacco: Never Assessed Comments Unknown Sex and Gender Information Value Date Recorded Sex Assigned at Not on file Legal Sex Female 2:36 AM JACK OF ALL TRADES Gender Identity Not on file Sexual Orientation Not on file documented as of this encounter Plan of Treatment Not on file documented as of this encounter Visit Diagnoses Diagnosis Pain in limb- Primary documented in this encounter Additional Health Concerns Infection Onset Date Last Indicated Resolved Time R/O COVID-19 10/19/2021 10/19/2021 10/19/2021 7:32 PM JACK OF ALL TRADES R/O COVID-19 03/30/2022 03/30/2022 03/30/2022 4:47 PM CDT documented as of this encounter Care Teams Quality Assurance Monitor Final Relationship Specialty Start Date End Date Aileen Cary DO [address] [place] [phone] PCP - General Pediatrics 07/04/21 documented as of this encounter
--- OUTSIDE RECORDS SUMMARY | 2025-05-14 08:06 | XMS_ITS | Encounter Summary ---
Author Organization [employer] Address [address] [place] [address] Care Team Providers Care Hull Builder Name Role Phone Aileen Cary DO Primary Care Provid er Encounter Details Date Type Department Care Team (Latest Contact Info) Description 06/04/2004 Inpatient Historical HIS PATIENT IN A BED Merry Lopez MD [address] [place] [address] MALPOSITION NEC-DELIVER (Primary Dx) Social History Tobacco Use Types Packs/Day Years Used Date Smoking Tobacco: Never Assessed Comments Unknown Sex and Gender Information Value Date Recorded Sex Assigned at Not on file Legal Sex Female 2:36 AM MANAGER FINANCIAL Gender Identity Not on file Sexual Orientation Not on file documented as of this encounter Plan of Treatment Not on file documented as of this encounter Visit Diagnoses Diagnosis Other specified malposition or malpresentation of fetus, delivered- Primary documented in this encounter Additional Health Concerns Infection Onset Date Last Indicated Resolved Time R/O COVID-19 10/19/2021 10/19/2021 10/19/2021 7:32 PM MANAGER FINANCIAL R/O COVID-19 03/30/2022 03/30/2022 03/30/2022 4:47 PM CDT documented as of this encounter Care Teams Hull Builder Relationship Specialty Start Date End Date Aileen Cary DO [address] [place] [phone] PCP - General Pediatrics 07/04/21 documented as of this encounter
--- OUTSIDE RECORDS SUMMARY | 2025-05-14 08:06 | XMS_ITS ---
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 Cubital tunnel syndrome 01/17/2020 Abdominal pain 07/26/2018 Excess skin of abdominal wall 12/31/2017 Arthritis of left acromioclavicular joint 2017 Contusion of wrist 12/08/2017 Postconcussion syndrome 12/08/2017 Biceps tendinitis 12/08/2017 Sprain of carpometacarpal joint 12/08/2017 Sprain of radiocarpal ligament 12/08/2017 Sprain of ulnar collateral ligament of wrist Strain of thoracic back region 12/08/2017 Chronic back pain 11/04/2017 Recurrent ventral incisional hernia 09/24/2017 Impingement syndrome of shoulder region 07/14/20 17 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 Past Treatment and Therapy Plans No past plan information found. Lifetime Dose Tracking * Chemical Lifetime Dose Automatic Entry Manual Entr y Effective Dose 79.8 mSv 79.8 mSv 0 mSv Total DLP 3,628.7 DLP 3,628.7 DLP 0 DLP CTDIvol Max 131.1 mGy 131.1 mGy 0 mGy CTDIvol Min 131.1 mGy 131.1 mGy 0 mGy
--- OUTSIDE RECORDS SUMMARY | 2025-05-14 08:06 | XMS_ITS | Encounter Summary ---
Author Organization [facility] Address [address] [place] [address] Care Team Providers Care Human Resource Consultant Name Role Phone Aileen Cary DO Primary Care Provid er Encounter Details Date Type Department Care Team (Late st Contact Info) Description 03/31/2003 Outpatient Historical [facility] Family Medicine Vi Oakes [address] [employer] [facility] [address] [place] [address] [place] [address] [employer] [facility]. [address] [place] [address] Social History Tobacco Use Types Packs/Day Years Used Date Smoking Tobacco: Never Assessed Comments Unknown Sex and Gender Information Value Date Recorded Sex Assigned at Not on file Legal Sex Female 2:36 AM MINING MACHINERY ASSEMBLER Gender Identity Not on file Sexual Orientation Not on file documented as of this encounter Plan of Treatment Not on file documented as of this encounter Visit Diagnoses Not on filedocumented in this encounter Additional Health Concerns Infection Onset Date Last Indicated Resolved Time R/O COVID-19 10/19/2021 10/19/2021 10/19/2021 7:32 PM MINING MACHINERY ASSEMBLER R/O COVID-19 03/30/2022 03/30/2022 03/30/2022 4:47 PM CDT documented as of this encounter Care Teams Human Resource Consultant Relationship Specialty Start Date End Date Aileen Cary DO [address] [place] [phone] PCP - General Pediatrics 07/04/21 documented as of this encounter
--- OUTSIDE RECORDS SUMMARY | 2025-05-14 08:06 | XMS_ITS | Encounter Summary ---
Author Organization [employer] Address [address] [place] [address] Care Team Providers Care Health Care Aide Name Role Phone Aileen Cary DO Primary Care Provid er Encounter Details Date Type Department Care Team (Late st Contact Info) Description 01/18/2001 Outpatient Historical HIS [facility] DEPT [place] [address] [facility]. [address] [place] [address] Social History Tobacco Use Types Packs/Day Years Used Date Smoking Tobacco: Never Assessed Comments Unknown Sex and Gender Information Value Date Recorded Sex Assigned at Not on file Legal Sex Female 2:36 AM GAS APPLIANCE SERVICER HELPER Gender Identity Not on file Sexual Orientation Not on file documented as of this encounter Plan of Treatment Not on file documented as of this encounter Visit Diagnoses Not on filedocumented in this encounter Additional Health Concerns Infection Onset Date Last Indicated Resolved Time R/O COVID-19 10/19/2021 10/19/2021 10/19/2021 7:32 PM GAS APPLIANCE SERVICER HELPER R/O COVID-19 03/30/2022 03/30/2022 03/30/2022 4:47 PM CDT documented as of this encounter Care Teams Health Care Aide Relationship Specialty Start Date End Date Aileen Cary DO [address] [place] [phone] PCP - General Pediatrics 07/04/21 documented as of this encounter
--- OUTSIDE RECORDS SUMMARY | 2025-05-14 08:06 | XMS_ITS | Encounter Summary ---
Author Organization [employer] Address [address] [place] [address] Care Team Providers Care Disc Pad Knockout Worker Name Role Phone Aileen Cary DO Primary Care Provid er Encounter Details Date Type Department Care Team (Late st Contact Info) Description 05/27/2002 Outpatient Historical HIS [facility] DEPT OF FAMILY MEDICINE Anayeli Muller MD [address] [place] [address] Social History Tobacco Use Types Packs/Day Years Used Date Smoking Tobacco: Never Assessed Comments Unknown Sex and Gender Information Value Date Recorded Sex Assigned at Not on file Legal Sex Female 2:36 AM WEIGHT LOSS PHYSICIAN Gender Identity Not on file Sexual Orientation Not on file documented as of this encounter Plan of Treatment Not on file documented as of this encounter Visit Diagnoses Not on filedocumented in this encounter Additional Health Concerns Infection Onset Date Last Indicated Resolved Time R/O COVID-19 10/19/2021 10/19/2021 10/19/2021 7:32 PM WEIGHT LOSS PHYSICIAN R/O COVID-19 03/30/2022 03/30/2022 03/30/2022 4:47 PM CDT documented as of this encounter Care Teams Disc Pad Knockout Worker Relationship Specialty Start Date End Date Aileen Cary DO [address] [place] [phone] PCP - General Pediatrics 07/04/21 documented as of this encounter
--- OUTSIDE RECORDS SUMMARY | 2025-05-14 08:06 | XMS_ITS | Encounter Summary ---
Author Organization [email or web address] Address [address] [place] [address] Care Team Providers Care Court Collections Officer Name Role Phone Aileen Cary DO Primary Care Provid er Encounter Details Date Type Department Care Team (Late st Contact Info) Description 04/02/2002 Outpatient Historical [facility] Anayeli Muller MD [address] [place] [address] Social History Tobacco Use Types Packs/Day Years Used Date Smoking Tobacco: Never Assessed Comments Unknown Sex and Gender Information Value Date Recorded Sex Assigned at Not on file Legal Sex Female 2:36 AM PRODUCT HANDLER Gender Identity Not on file Sexual Orientation Not on file documented as of this encounter Plan of Treatment Not on file documented as of this encounter Visit Diagnoses Not on filedocumented in this encounter Additional Health Concerns Infection Onset Date Last Indicated Resolved Time R/O COVID-19 10/19/2021 10/19/2021 10/19/2021 7:32 PM PRODUCT HANDLER R/O COVID-19 03/30/2022 03/30/2022 03/30/2022 4:47 PM CDT documented as of this encounter Care Teams Court Collections Officer Relationship Specialty Start Date End Date Aileen Cary DO [address] [place] [phone] PCP - General Pediatrics 07/04/21 documented as of this encounter
--- OUTSIDE RECORDS SUMMARY | 2025-05-14 08:06 | XMS_ITS | Encounter Summary ---
Author Organization [employer] [facility] Address [address] [place] [address] Care Team Providers Care Formula Weigher Name Role Phone Aileen Cary DO Primary Care Provid er Encounter Details Date Type Department Care Team (Latest Contact Info) Description 01/31/2000 Outpatient Historical HIS [facility] B[facility] Merry Lopez MD [address] [place] [address] Threatened premature labor, antepartum(644.03) (Primary Dx) Social History Tobacco Use Types Packs/Day Years Used Date Smoking Tobacco: Never Assessed Comments Unknown Sex and Gender Information Value Date Recorded Sex Assigned at Not on file Legal Sex Female 2:36 AM MEDICAL PATHOLOGY TEACHER Gender Identity Not on file Sexual Orientation Not on file documented as of this encounter Plan of Treatment Not on file documented as of this encounter Visit Diagnoses Diagnosis Threatened premature labor, antepartum(644.03)- Primary Threatened premature labor, antepartum documented in this encounter Additional Health Concerns Infection Onset Date Last Indicated Resolved Time R/O COVID-19 10/19/2021 10/19/2021 10/19/2021 7:32 PM MEDICAL PATHOLOGY TEACHER R/O COVID-19 03/30/2022 03/30/2022 03/30/2022 4:47 PM CDT documented as of this encounter Care Teams Formula Weigher Relationship Specialty Start Date End Date Aileen Cary DO [facility] [place] [address] PCP - General Pediatrics 07/04/21 documented as of this encounter
--- OUTSIDE RECORDS SUMMARY | 2025-05-14 08:06 | XMS_ITS | Encounter Summary ---
Author Organization [facility] Address [address] [place] [address] Care Team Providers Care Baby Doctor Name Role Phone Aileen Cary DO Primary Care Provid er Encounter Details Date Type Department Care Team (Late st Contact Info) Description 08/16/[address] [facility] Family Medicine Vi Oakes [address] [employer] [facility] [address] [place] [address] [place] [address] [employer] [facility] [place] [address] Social History Tobacco Use Types Packs/Day Years Used Date Smoking Tobacco: Never Assessed Comments Unknown Sex and Gender Information Value Date Recorded Sex Assigned at Not on file Legal Sex Female 2:36 AM ASSOCIATE DATA SCIENTIST Gender Identity Not on file Sexual Orientation Not on file documented as of this encounter Plan of Treatment Not on file documented as of this encounter Visit Diagnoses Not on filedocumented in this encounter Additional Health Concerns Infection Onset Date Last Indicated Resolved Time R/O COVID-19 10/19/2021 10/19/2021 10/19/2021 7:32 PM ASSOCIATE DATA SCIENTIST R/O COVID-19 03/30/2022 03/30/2022 03/30/2022 4:47 PM CDT documented as of this encounter Care Teams Baby Doctor Relationship Specialty Start Date End Date Aileen Cary DO [address] [place] [phone] PCP - General Pediatrics 07/04/21 documented as of this encounter
--- OUTSIDE RECORDS SUMMARY | 2025-05-14 08:06 | XMS_ITS | Encounter Summary ---
Author Organization [email or web address] Address [address] [place] [address] Care Team Providers Care Educational Adviser Name Role Phone iAleen Cary DO Primary Care Provid er Encounter Details Date Type Department Care Team (Late st Contact Info) Description 01/13/2002 Outpatient Historical HIS [facility] DEPT OF FAMILY MEDICINE Anayeli Muller MD [address] [place] [address] Social History Tobacco Use Types Packs/Day Years Used Date Smoking Tobacco: Never Assessed Comments Unknown Sex and Gender Information Value Date Recorded Sex Assigned at Not on file Legal Sex Female 2:36 AM TAVERN KEEPER Gender Identity Not on file Sexual Orientation Not on file documented as of this encounter Plan of Treatment Not on file documented as of this encounter Visit Diagnoses Not on filedocumented in this encounter Additional Health Concerns Infection Onset Date Last Indicated Resolved Time R/O COVID-19 10/19/2021 10/19/2021 10/19/2021 7:32 PM TAVERN KEEPER R/O COVID-19 03/30/2022 03/30/2022 03/30/2022 4:47 PM CDT documented as of this encounter Care Teams Educational Adviser Relationship Specialty Start Date End Date Aileen Cary DO [address] [place] [phone] PCP - General Pediatrics 07/04/21 documented as of this encounter
--- OUTSIDE RECORDS SUMMARY | 2025-05-14 08:06 | XMS_ITS | Encounter Summary ---
Author Organization [facility] Address [address] [place] [address] Care Team Providers Care Well Point Pumping Supervisor Name Role Phone Aileen Cary DO Primary Care Provid er Encounter Details Date Type Department Care Team (Latest Contact Info) Description 06/22/2002 Outpatient Historical HIS [facility] CHITO Osorio, [place] [address] [place] [address] JOINT PAIN-L/LEG (Primary Dx) Social History Tobacco Use Types Packs/Day Years Used Date Smoking Tobacco: Never Assessed Comments Unknown Sex and Gender Information Value Date Recorded Sex Assigned at Not on file Legal Sex Female 2:36 AM GAS MAKER HELPER Gender Identity Not on file Sexual Orientation Not on file documented as of this encounter Plan of Treatment Not on file documented as of this encounter Visit Diagnoses Diagnosis Pain in joint, lower leg- Primary documented in this encounter Additional Health Concerns Infection Onset Date Last Indicated Resolved Time R/O COVID-19 10/19/2021 10/19/2021 10/19/2021 7:32 PM GAS MAKER HELPER R/O COVID-19 03/30/2022 03/30/2022 03/30/2022 4:47 PM CDT documented as of this encounter Care Teams Well Point Pumping Supervisor Relationship Specialty Start Date End Date Aileen Cary DO [address] [place] [address] PCP - General Pediatrics 07/04/21 documented as of this encounter
--- OUTSIDE RECORDS SUMMARY | 2025-05-14 08:06 | XMS_ITS | Encounter Summary ---
Author Organization [employer] Address [address] [place] [address] Care Team Providers Care Video Software Engineer Name Role Phone Aileen Cary DO Primary Care Provid er Encounter Details Date Type Department Care Team (Latest Contact Info) Description 02/15/2000 Inpatient Historical HIS PATIENT IN A BED Merry Lopez MD [address] [place] [phone] Forceps or vacuum extractor delivery without mention of indication, delivered, with or without mention of antepartum condition (Primary Dx) Social History Tobacco Use Types Packs/Day Years Used Date Smoking Tobacco: Never Assessed Comments Unknown Sex and Gender Information Value Date Recorded Sex Assigned at Not on file Legal Sex Female 2:36 AM SUPERINTENDENT COMPRESSOR STATIONS Gender Identity Not on file Sexual Orientation Not on file documented as of this encounter Plan of Treatment Not on file documented as of this encounter Visit Diagnoses Diagnosis Forceps or vacuum extractor delivery without mention of indication, delivered, with or without mention of antepartum condition- Primary documented in this encounter Additional Health Concerns Infection Onset Date Last Indicated Resolved Time R/O COVID-19 10/19/2021 10/19/2021 10/19/2021 7:32 PM SUPERINTENDENT COMPRESSOR STATIONS R/O COVID-19 03/30/2022 03/30/2022 03/30/2022 4:47 PM CDT documented as of this encounter Care Teams Video Software Engineer Relationship Specialty Start Date End Date Aileen Cary DO [address] [place] [phone] PCP - General Pediatrics 07/04/21 documented as of this encounter
--- OUTSIDE RECORDS SUMMARY | 2025-05-14 08:06 | XMS_ITS | Encounter Summary ---
Author Organization [employer] Address [address] [place] [address] Care Team Providers Care Valve Machine Operator Name Role Phone Aileen Cary DO Primary Care Provid er Encounter Details Date Type Department Care Team (Latest Contact Info) Description 03/04/2003 Outpatient Historical HIS PATIENT IN A BED Merry Lopez MD [address] [place] [phone] THREAT LABOR NEC-ANTEPAR (Primary Dx) Social History Tobacco Use Types Packs/Day Years Used Date Smoking Tobacco: Never Assessed Comments Unknown Sex and Gender Information Value Date Recorded Sex Assigned at Not on file Legal Sex Female 2:36 AM LICENSE DISTRIBUTOR Gender Identity Not on file Sexual Orientation Not on file documented as of this encounter Plan of Treatment Not on file documented as of this encounter Visit Diagnoses Diagnosis Other threatened labor, antepartum- Primary documented in this encounter Additional Health Concerns Infection Onset Date Last Indicated Resolved Time R/O COVID-19 10/19/2021 10/19/2021 10/19/2021 7:32 PM LICENSE DISTRIBUTOR R/O COVID-19 03/30/2022 03/30/2022 03/30/2022 4:47 PM CDT documented as of this encounter Care Teams Valve Machine Operator Relationship Specialty Start Date End Date Aileen Cary DO [address] [place] [phone] PCP - General Pediatrics 07/04/21 documented as of this encounter
--- OUTSIDE RECORDS SUMMARY | 2025-05-14 08:06 | XMS_ITS | Encounter Summary ---
Author Organization [facility] Address [address] [place] [address] Care Team Providers Care Medical Lab Technician Name Role Phone Aileen Cary DO Primary Care Provid er Encounter Details Date Type Department Care Team (Late st Contact Info) Description 05/18/2004 Outpatient Historical HIS PATIENT IN A BED Andre Aceves MD [address] [place] [address] Merry Lopez MD [address] [place] [address] OTHER CURR COND-ANTEPARTUM (Primary Dx) Social History Tobacco Use Types Packs/Day Years Used Date Smoking Tobacco: Never Assessed Comments Unknown Sex and Gender Information Value Date Recorded Sex Assigned at Not on file Legal Sex Female 2:36 AM CIRCUIT DESIGN ENGINEER Gender Identity Not on file Sexual Orientation Not on file documented as of this encounter Plan of Treatment Not on file documented as of this encounter Visit Diagnoses Diagnosis Other current maternal conditions classifiable elsewhere, antepartum- Primary documented in this encounter Additional Health Concerns Infection Onset Date Last Indicated Resolved Time R/O COVID-19 10/19/2021 10/19/2021 10/19/2021 7:32 PM CIRCUIT DESIGN ENGINEER R/O COVID-19 03/30/2022 03/30/2022 03/30/2022 4:47 PM CDT documented as of this encounter Care Teams Medical Lab Technician Relationship Specialty Start Date End Date Aileen Cary DO [facility] [place] [address] PCP - General Pediatrics 07/04/21 documented as of this encounter
--- OUTSIDE RECORDS SUMMARY | 2025-05-14 08:06 | XMS_ITS | Encounter Summary ---
Author Organization [employer] Address [address] [place] [address] Care Team Providers Care Field Research Assistant Name Role Phone Aileen Cary DO Primary Care Provid er Encounter Details Date Type Department Care Team (Late st Contact Info) Description 03/01/2002 Outpatient Historical HIS [facility] Anayeli Muller MD [address] [place] [address] PAIN IN LIMB (Primary Dx) Social History Tobacco Use Types Packs/Day Years Used Date Smoking Tobacco: Never Assessed Comments Unknown Sex and Gender Information Value Date Recorded Sex Assigned at Not on file Legal Sex Female 2:36 AM DINING HOST Gender Identity Not on file Sexual Orientation Not on file documented as of this encounter Plan of Treatment Not on file documented as of this encounter Visit Diagnoses Diagnosis Pain in limb- Primary documented in this encounter Additional Health Concerns Infection Onset Date Last Indicated Resolved Time R/O COVID-19 10/19/2021 10/19/2021 10/19/2021 7:32 PM DINING HOST R/O COVID-19 03/30/2022 03/30/2022 03/30/2022 4:47 PM CDT documented as of this encounter Care Teams Field Research Assistant Relationship Specialty Start Date End Date Aileen Cary DO [address] [place] [phone] PCP - General Pediatrics 07/04/21 documented as of this encounter
--- OUTSIDE RECORDS SUMMARY | 2025-05-14 08:06 | XMS_ITS | Encounter Summary ---
Author Organization [facility] Address 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 Gender Identity Not on file Sexual Orientation Not on file documented as of this encounter Plan of Treatment Not on file documented as of this encounter Visit Diagnoses Not on filedocumented in this encounter Additional Health Concerns Infection Onset Date Last Indicated Resolved Time R/O COVID-19 10/19/2021 10/19/2021 10/19/2021 7:32 PM PROPERTY AND EQUIPMENT CLERK R/O COVID-19 03/30/2022 03/30/2022 03/30/2022 4:47 PM CDT documented as of this encounter Care Teams Insurance Policy Issue Clerk Relationship Specialty Start Date End Date Aileen Cary DO [address] [place] [phone] PCP - General Pediatrics 07/04/21 documented as of this encounter
--- OUTSIDE RECORDS SUMMARY | 2025-05-14 08:06 | XMS_ITS | Encounter Summary ---
Author Organization [employer] Address [address] [place] [address] Care Team Providers Care Theology Professor Name Role Phone Aileen Cary DO Primary Care Provid er Encounter Details Date Type Department Care Team (Late st Contact Info) Description 02/15/2002 Outpatient Historical HIS [facility] DEPT OF FAMILY MEDICINE Anayeli Muller MD [address] [place] [address] Social History Tobacco Use Types Packs/Day Years Used Date Smoking Tobacco: Never Assessed Comments Unknown Sex and Gender Information Value Date Recorded Sex Assigned at Not on file Legal Sex Female 2:36 AM TRAFFIC INSPECTOR Gender Identity Not on file Sexual Orientation Not on file documented as of this encounter Plan of Treatment Not on file documented as of this encounter Visit Diagnoses Not on filedocumented in this encounter Additional Health Concerns Infection Onset Date Last Indicated Resolved Time R/O COVID-19 10/19/2021 10/19/2021 10/19/2021 7:32 PM TRAFFIC INSPECTOR R/O COVID-19 03/30/2022 03/30/2022 03/30/2022 4:47 PM CDT documented as of this encounter Care Teams Theology Professor Relationship Specialty Start Date End Date Aileen Cary DO [address] [place] [phone] PCP - General Pediatrics 07/04/21 documented as of this encounter
--- OUTSIDE RECORDS SUMMARY | 2025-05-14 08:06 | XMS_ITS | Encounter Summary ---
Author Organization [facility] Address 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 Gender Identity Not on file Sexual Orientation Not on file documented as of this encounter Plan of Treatment Not on file documented as of this encounter Visit Diagnoses Diagnosis Other specified complication, antepartum(646.83)- Primary Other specified complication, antepartum documented in this encounter Additional Health Concerns Infection Onset Date Last Indicated Resolved Time R/O COVID-19 10/19/2021 10/19/2021 10/19/2021 7:32 PM FOOTWEAR 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 R/O COVID-19 03/30/2022 03/30/2022 03/30/2022 4:47 PM CDT documented as of this encounter Care Teams Rig Superintendent Relationship Specialty Start Date End Date Aileen Cary DO [facility] [place] [address] PCP - General Pediatrics 07/04/21 documented as of this encounter
--- OUTSIDE RECORDS SUMMARY | 2025-05-14 08:06 | XMS_ITS | Clinical Summary ---
Author Organization [facility] Address [address] [place] [address] Phone Care Team Providers Care Forest Manager Name Role Phone Aileen Cary DO Primary Care Provid er Allergies Active Allergy Reactions Criticality Noted Date Comments Adhesive Hives High 04/22/2022 dermabond and tape Aspirin Anaphylaxis High 07/04/2021 Banana Angioedema High 07/04/2021 Doxycycline Hcl Anaphylaxis High 10/19/2021 Naproxen Anaphylaxis High 07/04/2021 Garvin Anaphylaxis High 07/04/2021 Pineapple Angioedema High 07/04/2021 Topiramate Anaphylaxis High 11/16/2023 Trazodone Other (See Comments) 07/04/2021 Watermelon Anaphylaxis High 04/22/2022 Medications omeprazole (PriLOSEC) 20 mg Capsule, Delayed Release(E.C.) Take 20 mg by mouth 2 times daily. Active albuterol sulfate 90 mcg/Actuation inhaler Take 2 Puffs by inhalation every 6 hours as needed for Shortness of Breath. Active albuterol (PROVENTIL,LARRY CESAR) 2.5 mg /3 mL (0.083 %) Solution for Nebulization Take 2.5 mg by inhalation one time only. Active ondansetron (ZOFRAN ODT) 4 mg Tablet, Rapid Dissolve Take 1 Tablet (4 mg) by mouth every 8 hours as needed for Nausea or Nausea/Emesis. Dissolve tablet on top of tongue, then swallow with saliva. 2 Tablet 12/04/20 21 Active venlafaxine 75 mg Extended Release 24 hour tablet Take 225 mg by mouth daily with breakfast. Active diphenhydrAMINE (BENADRYL) 25 mg tablet Take 25 mg by mouth every 6 hours as needed for Allergies. Active acetaminophen (TYLENOL) 500 mg tablet acetaminophen 500 mg tablet Active benzonatate (TESSALON) 200 mg capsule 07/15/20 22 Active chlorhexidine gluconate 0.12 % Mouthwash chlorhexidine gluconate 0.12 % mouthwash Active fluconazole (DIFLUCAN) 150 mg tablet TAKE 1 TABLET BY MOUTH ONCE A WEEK FOR 14 DAYS THEN TAKE 1 TABLET BY MOUTH WEEKLY FOR 6 MONTHS 07/04/20 22 Active FLUoxetine (PROzac) 20 mg capsule Take 20 mg by mouth daily. 07/04/20 22 Active Advair Diskus 100-50 mcg/dose disk inhaler INHALE 2 PUFFS TWICE A DAY DIRECTED 06/25/20 22 Active ipratropium-albu teroL (DUONEB) 0.5 mg-3 mg(2.5 mg base)/3 mL Solution for Nebulization ipratropium 0.5 mg-albuterol 3 mg (2.5 mg base)/3 mL nebulization soln Active Linzess 290 mcg capsule TAKE ONE CAPSULE BY MOUTH DAILY 30 MINUTES BEFORE BREAKFAST 08/11/20 22 Active lovastatin (MEVACOR) 10 mg tablet Take 10 mg by mouth daily. 07/29/20 22 Active mometasone-formo terol (DULERA) 200-5 mcg/actuation inhaler Dulera 200 mcg-5 mcg/actuation HFA aerosol inhaler Active HYDROcodone-acet aminophen (NORCO) 5-325 mg tabletIndication s:Abdominal pain, chronic, generalized Take 1 Tablet by mouth every 4 hours as needed for Pain, Moderate. Max Daily Amount: 6 Tablets 20 Tablet 11/16/19 24 Active metoclopramide HCl (REGLAN) 10 mg tablet Take 1 Tablet (10 mg) by mouth 3 times daily as needed for Nausea/Emesis. 20 Tablet 11/16/19 24 Active cyclobenzaprine HCl (CYCLOBENZAPRINE ORAL) Take by mouth. Activ e propranoloL (INDERAL) 10 mg tablet Take 10 mg by mouth 3 times daily. Active prazosin (MINIPRESS) 5 mg capsule Take 5 mg by mouth daily at bedtime. Active hydrOXYzine HCL (ATARAX) 50 mg tablet Take 50 mg by mouth 3 times daily as needed for Itching. Active carBAMazepine (TEGretol XR) 400 mg Extended Release 12 hour tablet Take 400 mg by mouth 2 times daily. Active busPIRone (BUSPAR) 10 mg tablet Take 10 mg by mouth 3 times daily. Active levETIRAcetam (KEPPRA) 500 mg tablet Take 500 mg by mouth 2 times daily. Active lamoTRIgine (LaMICtal) 100 mg tablet Take 100 mg by mouth daily. Active Active Problems Problem Noted Date Diagnosed Date [...] tenosynovitis 10/21/2016 Malignant tumor of cervix 12/17/2008 Family History Medical History Relation Name Comments Hypertension Father Katherin Magaña Dislocations Mother Christine Magaña Cancer Sister Radha Laughlin Relation Name Status Comments Father R Jason Magaña Mother Christine Magaña Sister Radha Laughlin Social History Tobacco Use Types Packs/Day Years Used Date Smoking Tobacco: Never Smokeless Tobacco: Never Tobacco Cessation:Counseling Given: Not Answered Alcohol Use Standard Drinks/Week Comments Not Currently 0 (1 standard drink = 0.6 oz pur e alcohol) Feeling Safe Answer Date Recorded Are you in a relationship wi th someone who hurts you emotionally and/or physically? No 08/28/2024 Comments No Sex and Gender Information Value Date Recorded Sex Assigned at Not on file Legal Sex Female 2:36 AM CHEMIST PROTEINS Gender Identity Not on file Sexual Orientation Not on file Last Filed Vital Signs Vital Sign Reading Time Taken Comments Blood Pressure 135/87 08/28/2024 8:45 PM CDT Pulse 80 08/28/2024 8:45 PM CDT Temperature 36 C (96.8 F) 08/28/2024 6:53 PM CDT Respiratory Rate 16 08/28/2024 8:45 PM CDT Oxygen Saturation 95% 08/28/2024 8:45 PM CDT Inhaled Oxygen Concentration - - Weight 101.6 kg (224 lb) 08/28/2024 6:53 PM CDT Height 170.2 cm (5' 7 ) 08/28/2024 6:53 PM CDT Body Mass Index 35.08 08/28/2024 6:53 PM CDT Plan of Treatment Health Maintenance Due Date Last Done Comments Pre-Diabetes and Diabetes Screening 1978 DTAP/TDAP/TD VACCINES (1 - Tdap) 1997 HEPATITIS B VACCINES (1 of 3 - 19+ 3-dose series) 1997 BREAST CANCER SCREENING 2018 FIT-DNA Q 3 years 2023 FIT/FOBT Q 1 year 2023 Flex Sig/CT Colonography Q 5 years 2023 INFLUENZA VACCINE (#1) 2024 COLORECTAL SCREENING 06/17/2029 06/17/2019 Colorectal Cancer Screening 06/17/2029 HPV VACCINES Aged Out No longer eligi ble based on patient's age to complete this topic [place] [address] [place] [id number] [facility] [id number] Care Teams Forest Manager Relationship Specialty Start Date End Date Aileen Cary DO [address] [place] [address] PCP - General Pediatrics 07/04/21
--- OUTSIDE RECORDS SUMMARY | 2025-05-14 08:06 | XMS_ITS | Encounter Summary ---
Author Organization [employer] Address 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 Gender Identity Not on file Sexual Orientation Not on file documented as of this encounter Plan of Treatment Not on file documented as of this encounter Visit Diagnoses Diagnosis Other injury to pelvic organs, with delivery- Primary documented in this encounter Additional Health Concerns Infection Onset Date Last Indicated Resolved Time R/O COVID-19 10/19/2021 10/19/2021 10/19/2021 7:32 PM TRACK PRODUCTION ENGINEER R/O COVID-19 03/30/2022 03/30/2022 03/30/2022 4:47 PM CDT documented as of this encounter Care Teams Check Out Clerk Relationship Specialty Start Date End Date Aileen Cary DO [address] [place] [phone] PCP - General Pediatrics 07/04/21 documented as of this encounter
--- OUTSIDE RECORDS SUMMARY | 2025-05-14 08:06 | XMS_ITS | Encounter Summary ---
Author Organization [employer] Address [address] [place] [address] Care Team Providers Care Precision Dyer Name Role Phone Aileen Cary DO Primary Care Provid er Encounter Details Date Type Department Care Team (Late st Contact Info) Description 03/31/2002 Outpatient Historical HIS [facility] DEPT OF FAMILY MEDICINE Anayeli Muller MD [address] [place] [address] Social History Tobacco Use Types Packs/Day Years Used Date Smoking Tobacco: Never Assessed Comments Unknown Sex and Gender Information Value Date Recorded Sex Assigned at Not on file Legal Sex Female 2:36 AM SEAFOOD MANAGER Gender Identity Not on file Sexual Orientation Not on file documented as of this encounter Plan of Treatment Not on file documented as of this encounter Visit Diagnoses Not on filedocumented in this encounter Additional Health Concerns Infection Onset Date Last Indicated Resolved Time R/O COVID-19 10/19/2021 10/19/2021 10/19/2021 7:32 PM SEAFOOD MANAGER R/O COVID-19 03/30/2022 03/30/2022 03/30/2022 4:47 PM CDT documented as of this encounter Care Teams Precision Dyer Relationship Specialty Start Date End Date Aileen Cary DO [address] [place] [phone] PCP - General Pediatrics 07/04/21 documented as of this encounter
--- OUTSIDE RECORDS SUMMARY | 2025-05-14 08:06 | XMS_ITS | Encounter Summary ---
Author Organization [employer] Address [address] [place] [address] Care Team Providers Care Refinery Operator Helper Cracking Unit Name Role Phone Aileen Cary DO Primary Care Provid er Encounter Details Date Type Department Care Team (Late st Contact Info) Description 04/12/2002 Outpatient Historical HIS [facility] DEPT [place] [address] [facility] [place] [address] Social History Tobacco Use Types Packs/Day Years Used Date Smoking Tobacco: Never Assessed Comments Unknown Sex and Gender Information Value Date Recorded Sex Assigned at Not on file Legal Sex Female 2:36 AM ARRT TECHNOLOGIST Gender Identity Not on file Sexual Orientation Not on file documented as of this encounter Plan of Treatment Not on file documented as of this encounter Visit Diagnoses Not on filedocumented in this encounter Additional Health Concerns Infection Onset Date Last Indicated Resolved Time R/O COVID-19 10/19/2021 10/19/2021 10/19/2021 7:32 PM ARRT TECHNOLOGIST R/O COVID-19 03/30/2022 03/30/2022 03/30/2022 4:47 PM CDT documented as of this encounter Care Teams Refinery Operator Helper Cracking Unit Relationship Specialty Start Date End Date Aileen Cary DO [address] [place] [phone] PCP - General Pediatrics 07/04/21 documented as of this encounter
--- OUTSIDE RECORDS SUMMARY | 2025-05-14 08:06 | XMS_ITS | Data Portability ---
Author Organization RACHEL Regino Russo [facility] Address [address] [facility] [address] [place] [address] Assessment Encounter Date Assessment Date Assessment LastModified by Organization Details LastModified Time 12/04/2023 12/04/2023 She recently finished 7 days of antibiotics but feels like she is better now. She has had right sided ear/jaw/neck pain for the past week which has been unbearable. Not available 12/08/2023 11:16:14 Plan of Treatment Reminders Order Date Submit Date Provider Last Modified By Organization Details Last Modified Time Details Appointments None recorded. Lab C-reactive protein, quantitativ e, serum or plasma 2023 024 [facility], [address], [facility] [address], [place], [address], 4 12:24:21 CBC 2023 024 [facility], [address], [place], [address], 4 15:48:06 Referral None recorded. Procedures None recorded. Surgeries None recorded. Imaging None recorded. Medication Orders prednisone 20 mg tablet 2023 024 [id number], [address], [place], [place], [id number], 4 14:49:20 Medrol (Alexy) 4 mg tablets in a dose pack 2022 024 [id number], [address], [place], [place], [id number], 15:31:56 Patient TargetsNo targets recorded. Patient Instructions Encounter Date Encounter Id Patient Instructions Last Modified By Organization Details Last Modified Time 12/04/2023 [id number] Return to clinic if worsening symptoms or if not improving. Advised her to see her PCP as soon as possible. Not available 12/08/2023 11:17:09 Reason for Referral None Reported. Results Created Date Observation Date Name Description Value Unit Range Abnormal Flag Note LastModifiedBy Organization Detail LastModifiedTime 11/27/1912/04/2023 CBC WBC 9.3 x10 4.0-10 .5 Not Available [facility] [address], [place], [address], 12/04/2023 15:48:06 11/27/1912/04/2023 CBC RBC 4.59 x10 3.50-5 .50 Not Available [facility] [address], [place], [address], 12/04/2023 15:48:06 11/27/19 24 12/04/2023 CBC HGB 13.6 g/dL 12.0-1 6.0 Not Available [facility] [address] [facility] [address], [place], [address], 12/04/2023 15:48:06 11/27/1912/04/2023 CBC HCT 39.5 % 37.0-4 7.0 Not Available [facility] [address], [place], [address], 12/04/2023 15:48:06 11/27/19 24 12/04/2023 CBC MCV 86.0 fL 80.0-9 9.9 Not Available [facility] [address] [facility] [address], [place], [address], 12/04/2023 15:48:06 11/27/19 24 12/04/2023 CBC MCH 29.6 pg 27.0-3 2.0 Not Available [facility] [address] [facility], [place], [address], 12/04/2023 15:48:06 11/27/19 24 12/04/2023 CBC MCHC 34.4 g/dL 32.0-3 6.0 Not Available [facility] [address] [facility], [place], [address], 12/04/2023 15:48:06 11/27/19 24 12/04/2023 CBC RDW 14.8 % 11.5-1 4.6 high Not Available [facility] [address] [address], [place], [address], 12/04/2023 15:48:06 11/27/19 24 12/04/2023 CBC plt 366.1 x10 140.0- 451.0 Not Available [facility] [address] [facility] [address], [place], [address], 12/04/2023 15:48:06 11/27/19 24 12/04/2023 CBC lymphocytes % 23.4 % 20.0-5 0.0 Not Available [facility] [address] [facility] [address], [place], [address], 12/04/2023 15:48:06 11/27/19 24 12/04/2023 CBC granulcytes % 65.3 % 30.0-7 0.0 Not Available [facility] [address] [facility] [address], [place], [address], 12/04/2023 15:48:06 11/27/19 24 12/04/2023 CBC monocytes % 5.6 % 2.0-10 .0 Not Available [facility] [address] [facility] [address] [address], [place], [address], 12/04/2023 15:48:06 11/27/19 24 12/04/2023 CBC granulcytes# 6.1 x10 Not Jossie ilable [facility] [address] [address], [place], [address], 12/04/2023 15:48:06 11/27/19 24 12/04/2023 CBC lymphocytes # 2.2 x10 Not Available [facility] [address] [facility] [address], [place], [address], 12/04/2023 15:48:06 11/27/19 24 12/04/2023 CBC monocytes # 0.5 x10 Not Avai lable [facility] [address] [address], [place], [address], 12/04/2023 15:48:06 12/04/19 24 12/05/2023 C-JAMAL CTIVE PROTE IN C-reactive protein 6.6 mg/L <8.0 normal Not Available [address] [address] [place], [address], 12/05/2023 12:24:21 Result Notes None recorded. Problems Name Problem SNOMED Code Status Onset Date Resolution Date Notes Provider Name and Address Organization Details Recorded Time Insect bite - wound 675262782 Active 023 Krish Meadows MD [address] [place], [address] [facility] 02/24/2023 17:09:18 Problem Notes None recorded. Medical Equipment None Reported. Allergies Allergen ID Allergen Name Allergen Category Reaction Reaction Severity Criticality Documentation Date Start Date Code Code System Note Provider Name and Address Organization Details Recorded Time 1349 aspirin medicatio n Not available Not available Not available 02/24/2023 1191 RxNorm BRENDONSA NELSON wagner [facility] 04/11/202 3 16:54:41 1350 naproxen medicatio n Not available Not available Not available 02/24/2023 7258 RxNorm BRENDON wagner [facility] 3 16:54:48 1351 trazodone medicatio n Not available Not available Not available 02/24/2023 03730 RxNorm BRENDON wagner [facility] L.L.[facility] 3 16:55:02 1352 doxycycli ne Not available Not available Not available Not available 02/24/2023 3640 RxNorm BRENDON wagner [facility] L.L.[facility] 3 16:55:10 35137 trazodone hydrochlo ride medicatio n Not available Not available Not available 06/13/2023 13708 RxNorm Comme nt: Recor ded 01/05 3:59P M by Padmini Ely, Offic e Visit ; Promo juan josé; Signi fican ce: *; Reaso n: Drug aller gy; ; Not Available [facility] 3 02:24:08 43129 atorvasta tin calcium propylene glycol solvate Not available Not available Not available Not available 06/13/2023 14959 93 RxNorm Comme nt: Recor ded 01/05 3:59P M by McGiovanny Ely, Offic e Visit ; Promo juan josé; Signi fickory ce: *; Reaso n: Drug aller gy; ; Not Available [facility] 3 02:24:08 53182 [place] Aspirin medicatio n Not available Not available Not available 06/13/2023 38550 8 RxNorm Comme nt: Recor ded 01/05 3:58P M by Padmini Ely, Offic e Visit ; Promo juan josé; Signi fickory ce: *; Reaso n: Drug aller gy; ; Not Available [facility] 3 02:24:09 33314 doxycycli ne monohydra te medicatio n Not available Not available Not available 06/13/202301769 2 RxNorm Comme nt: Recor ded 01/05 3:59P M by Padmini Ely, Offic e Visit ; [place] can; [place] issa ce: *; Reaso n: Drug aller gy; ; Not Available [facility] 3 02:24:09 22293 topiramat e medicatio n Not available Not available Not available 12/04/2023 41253 RxNorm Surekhaselvin Izquierdo [facility] 4 14:17:38 Medications Name Sig Start Date Stop Date Status Note LastModified by Organization Details LastModified Time benzonata te 200 mg capsule Take 1 capsule 3 times a day by oral route as needed. active Not Available Not Available No t Available Medrol (Alexy) 4 mg tablets in a dose pack Take tablets as directed in alexy 03/02 completed Not Available Not Available Not Available prednison e 20 mg tablet 2 daily x 3 days, 1 daily x 3 days, 1/2 daily x 4 days then stop 2023 active Not Available Not Available Not Avai lable BuSpar 5 mg tablet Take 1 tablet twice a day by oral route. active Not Available Not Available No t Available Zofran 4 mg tablet Take 2 tablets every 8 hours by oral route as needed. active Not Available Not Available No t Available omeprazol e ER 40 mg capsule,e xtended release Take 1 capsule twice a day by oral route. active Not Available Not Available No t Available venlafaxi ne active 0; Recorded 01/05/20 23 4:00PM by Guerrero Ely, Office Visit; Not Available Not Available Not Available albuterol sulfate active 0; Recorded 01/05/20 23 4:00PM by Guerrero Ely, Office Visit; Not Available Not Available Not Available buspirone active 0; Recorded 01/05/20 23 4:00PM by Guerrero Ely, Office Visit; Not Available Not Available Not Available omeprazol e-sodium bicarbona te active 0; Recorded 01/05/20 23 4:00PM by Guerrero Ely, Office Visit; Not Available Not Available Not Available venlafaxi ne ER 225 mg tablet,ex tended release 24 hr Take 1 tablet every day by oral route. active Not Available Not Available No t Available Linzess 290 mcg capsule Take 1 capsule every day by oral route. active Not Available Not Available No t Available Proair Digihaler 90 mcg/actua tion aerosol powder breath act, sensor Inhale 2 puffs every 4 hours by inhalati on route. active Not Available Not Available No t Available Vitals Date Recorded Body height Body mass index (BMI) Body weight Oxygen saturation Oxygen saturation in Arterial blood by Pulse oximetry Heart rate Respiratory rate Body temperature Systolic blood pressure Diastolic blood pressure Provider Name and Address Organization Details Last Updated DateTime 4 170.18 cm 33.1 kg/m2 06965.4 3 g 99 % 99 % 73 /min 15 /min 97.3 [degF] 150 mm[Hg] 106 mm[Hg] Surekha Felecia [facility] 4 14:17:25 Date Recorded Body height Body mass index (BMI) Body weight Respiratory rate Body temperature Heart rate Oxygen saturation Oxygen saturation in Arterial blood by Pulse oximetry Systolic blood pressure Diastolic blood pressure Provider Name and Address Organization Details Last Updated DateTime 3 170.18 cm 32.9 kg/m2 76868.4 g 20 /min 98.1 [degF] 100 /min 95 % 95 % 134 mm[Hg] 90 mm[Hg] BRENDON POWELLG [facility] 3 17:01:05 Social History None recorded. Functional Status None recorded. Mental Status None recorded. Family History Nothing Reported. Medical History No medical history recorded. Gynecological HistoryNo gynecological history recorded. Obstetrics History GPAL:G 0 P 0 0 0 0 Past Encounters Encounter ID Performer Location Encounter Start Date Encounter Closed Date Diagnosis/Indication Diagnosis SNOMED-CT Code Diagnosis ICD10 Code Diagnosis Note [id number] Krish Meadows MD [facility] [address] [place] [phone] 02/24/2023 16:49:09 03/03/2023 11:32:34 Insect bite - wound 494066262 T14.8XXA reaction ot bite is most likely culprit. Benadryl q4h PRN and start medrol dose alexy given the amount of pain. [id number] ROLF PENA [facility] [address] [place] [address] 12/04/2023 13:51:40 12/08/2023 13:16:44 Trigeminal nerve inflammation 983931650 G50.8 Health Concerns Section Related Observation LastModified by Organization Detai ls LastModified Time None Recorded Concern Status LastModified by Organization Details LastModified Time None Recorded Advance Directives Directive None Recorded Payers Insurance Date Sequence Insurance Name Policy Number Policy Dickerson Covered Member ID Dickerson Member ID Guarantor Name 12/04/2023 1 [facility] (MEDICAID REPLACEMENT - HMO) VIDYA Julio [id number] Eliana Julio Notes Date Note Type Note Provider Name and Address Organization Details Recorded Time 02/24/2023 text/html The patient pres nts today after possible bug bite/spine to the left 4th finger. She states it happened as she was opening the door. she did not see the insect. Krish Meadows MD [address] [place] [address], [phone], [facility] 02/24/2023 17:22:05 12/04/2023 text/html Generic HPI TemplateReported bypatient.Location:Rig ht side of face and neck Severity:Moderate Duration:started 1 week ago Alleviating factors:none Associated Symptoms:jaw pain, swelling of glands and neck, nausea, vomiting, sore throat, balance issues, swelling of roof of mouth, swelling of tongue, ear pain, popping of right ear ROLF PENA [address] [place], [address], [facility] 12/08/2023 11:17:46 OBGyn Episode No OBEpisode recorded.
--- OUTSIDE RECORDS SUMMARY | 2025-05-14 08:06 | XMS_ITS | Encounter Summary ---
Author Organization [employer] Address 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 Gender Identity Not on file Sexual Orientation Not on file documented as of this encounter Plan of Treatment Not on file documented as of this encounter Visit Diagnoses Not on filedocumented in this encounter Additional Health Concerns Infection Onset Date Last Indicated Resolved Time R/O COVID-19 10/19/2021 10/19/2021 10/19/2021 7:32 PM VETER[employer] SERVICE OFFICER R/O COVID-19 03/30/2022 03/30/2022 03/30/2022 4:47 PM CDT documented as of this encounter Care Teams Food Production Supervisor Relationship Specialty Start Date End Date Aileen Cary DO [address] [place] [phone] PCP - General Pediatrics 07/04/21 documented as of this encounter
--- OUTSIDE RECORDS SUMMARY | 2025-05-14 08:06 | XMS_ITS | Encounter Summary ---
Author Organization [facility] Address 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 Gender Identity Not on file Sexual Orientation Not on file documented as of this encounter Plan of Treatment Not on file documented as of this encounter Visit Diagnoses Diagnosis Pain in joint, shoulder region- Primary documented in this encounter Additional Health Concerns Infection Onset Date Last Indicated Resolved Time R/O COVID-19 10/19/2021 10/19/2021 10/19/2021 7:32 PM MAIL CLERK R/O COVID-19 03/30/2022 03/30/2022 03/30/2022 4:47 PM CDT documented as of this encounter Care Teams Advertising Traffic Manager Relationship Specialty Start Date End Date Aileen Cary DO [address] [place] [phone] PCP - General Pediatrics 07/04/21 documented as of this encounter
--- OUTSIDE RECORDS SUMMARY | 2025-05-14 08:06 | XMS_ITS | Encounter Summary ---
Author Organization [employer] Address 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 Gender Identity Not on file Sexual Orientation Not on file documented as of this encounter Plan of Treatment Not on file documented as of this encounter Visit Diagnoses Not on filedocumented in this encounter Additional Health Concerns Infection Onset Date Last Indicated Resolved Time R/O COVID-19 10/19/2021 10/19/2021 10/19/2021 7:32 PM CRAB MEAT PROCESSOR R/O COVID-19 03/30/2022 03/30/2022 03/30/2022 4:47 PM CDT documented as of this encounter Care Teams Mine Administrator Supervisor Relationship Specialty Start Date End Date Aileen Cary DO [address] [place] [phone] PCP - General Pediatrics 07/04/21 documented as of this encounter
--- NOTE | 2025-05-14 08:11 | XRR_ITS ---
PROCEDURE INFORMATION: Exam: XR Chest Exam date and time: 05/14/2025 8:44 AM Age: 44 years old Clinical indication: Shortness of breath; SOB. No history of recent trauma or surgery is provided. TECHNIQUE: Imaging protocol: Radiologic exam of the chest. 1image(s) are provided. Views: 1 view. COMPARISON: 1. CR XR chest 1V portable [id number] 04/25/2025 7:02 AM 2. CR XR chest 1V portable [id number] 04/11/2025 7:42 AM as well as report 02/25/2025. FINDINGS: Lungs: No lobar consolidation is appreciated. Pleural spaces: No pneumothorax or significant pleural effusion is appreciated. Heart/Mediastinum: The cardiomediastinal silhouette is within normal for size.No cardiac decompensation is appreciated. Diaphragm: The hemidiaphragms are symmetric. Bones/joints: No interval displaced fracture or dislocation is appreciated.There are some degenerative changes of the shoulders and spine overall present. There is some predominant dextrocurvature of the thoracic spine similar overall. Soft tissues: No radiopaque foreign body or subcutaneous emphysema is appreciated. No other significant interval changes are appreciated. XR/XR chest 1V portable [id number] IMPRESSION: No lobar consolidation is appreciated.No interval acute cardiopulmonary changes are appreciated.
--- NOTE | 2025-05-14 08:11 | ECG_ITS ---
[facility] Test Date: 2025-05-14 Pat Name: Eliana Julio Department: Room: Gender: Female Ticket Agent: : 1980 Requested By: Madina Ospina Order Number: [id number] Sylvia MD: Jeronimo Cortez M.D. Measurements Intervals [place] Rate: 84 P: -9 SC: 179 QRS: -30 QRSD: 94 T: 30 QT: 362 QTc: 429 Interpretive Statements SINUS RHYTHM LOW QRS VOLTAGE IN PRECORDIAL LEADS [QRS DEFLECTION < 1.0 mV IN CHEST LEADS] POSSIBLE ANTERIOR MYOCARDIAL INFARCTION , PROBABLY OLD [30 ms Q WAVE IN V3/V4, OR R < 0.2 mV IN V4] Compared to ECG 04/25/2025 06:44:42 Low QRS voltage now present Myocardial infarct finding now present T-wave abnormality no longer present Electronically Signed On 05-18-2025 09:13:20 CDT by Jeronimo Cortez M.D. [email or web address]
--- NOTE | 2025-05-14 08:17 | W.ED.SOB ---
HPI - SOB/Dyspnea General: Chief Complaint: Shortness of Breath/Dyspnea Stated Complaint: SOB Time Seen by Provider: 05/14/25 08:02 Source: patient Mode of arrival: ambulatory Limitations: no limitations History of Present Illness: HPI Narrative: 44-year-old female with history of asthma states that over the last 2 months she has had shortness of breath worsened lately states she has had a nonproductive cough with wheezing. She denies any chest pain she denies any fever she is in no distress here. Associated symptoms: Deny abdominal pain, chest pain, fever(s), nausea or vomiting Related Data Home Medications ?Medication ?Instructions ?Recorded ?Confirmed omeprazole 40 mg capsule,delayed 40 mg PO BID 03/04/22 05/12/25 release epinephrine 0.3 mg/0.3 mL 0.3 mg IM Q4H PRN Allergic Reaction 07/14/22 05/12/25 injection, auto-injector (EpiPen 2-Alexy) atorvastatin 80 mg tablet 80 mg PO DAILY 10/11/24 05/12/25 cyclobenzaprine 10 mg tablet 10 mg PO TID PRN Muscle Spasm 10/11/24 05/12/25 ezetimibe 10 mg tablet 10 mg PO ONCE 10/11/24 05/12/25 fluconazole 150 mg tablet 150 mg PO .one a week 10/11/24 05/12/25 albuterol sulfate 90 mcg/actuation 1 inh inhalation QID 11/01/24 05/12/25 aerosol inhaler fluticasone 250 mcg-salmeterol 50 1 ea inhalation BID 02/25/25 05/12/25 mcg/dose blistr powdr for inhalation (Advair Diskus) Previous Rx's ?Medication ?Instructions ?Recorded levetiracetam 500 mg tablet 500 mg PO BID #60 tabs 01/02/25 hydroxyzine HCl 50 mg tablet 50 mg PO QID PRN anxiety/insomnia 02/06/25 #120 tabs cyclobenzaprine 10 mg tablet 10 mg PO Q8H PRN muscle spasm #20 02/25/25 tabs prednisone 20 mg tablet 20 mg PO TID #15 tabs 04/11/25 carbamazepine 400 mg 400 mg PO BID 90 days #180 tabs 04/24/25 tablet,extended release,12 hr ipratropium 0.5 mg-albuterol 3 mg 3 ml inhalation Q4H PRN shortness 04/25/25 (2.5 mg base)/3 mL nebulization of breath or wheezing #90 mL soln methylprednisolone 4 mg tablets in See Rx Instructions PO .COMPLEX 04/25/25 a dose pack (Medrol (Alexy)) #21 ea buspirone 10 mg tablet 10 mg PO BID #60 tabs 05/12/25 prazosin 5 mg capsule 5 mg PO QPM #30 caps 05/12/25 propranolol 20 mg tablet 20 mg PO BID PRN anxiety #60 tabs 05/12/25 quetiapine 100 mg tablet 200 mg (2 x 100 mg) PO .HS #60 tabs 05/12/25 venlafaxine 150 mg tablet,extended 300 mg (2 x 150 mg) PO DAILY #60 05/12/25 release 24 hr tabs prednisone 50 mg tablet 50 mg PO DAILY #5 tabs 05/14/25 Allergies Allergy/AdvReac Type Severity Reaction Status Date / Time Latex, Natural Rubber Allergy Severe ALGY-Difficulty Verified 05/12/25 12:24 Breathing lamotrigine Allergy Intermediate ALGY-Rash Verified 05/12/25 12:24 2-octyl cyanoacrylate Allergy Unknown Unknown Verified 05/12/25 12:24 Alpha-Gal Allergy ADR-Abdominal Verified 05/12/25 12:24 (Thixwxpnq-Thlgu-4,3-Gala Pain aspirin Allergy ALGY-Difficulty Verified 05/12/25 12:24 Breathing banana Allergy Unknown Verified 05/12/25 12:24 doxycycline Allergy Unknown Verified 05/12/25 12:24 NSAIDS (Non-Steroidal Allergy ALGY-Difficulty Verified 05/12/25 12:24 Anti-Inflamma Breathing orange Allergy Unknown Verified 05/12/25 12:24 pineapple Allergy Unknown Verified 05/12/25 12:24 trazodone Allergy Unknown Verified 05/12/25 12:24 watermelon Allergy Unknown Verified 05/12/25 12:24 topiramate AdvReac Severe Rash & Verified 05/12/25 12:24 itching. dermabond Allergy ALGY-Bliste Uncoded 05/12/25 12:24 r Review of Systems Const: Denies: fever(s), chills, body aches or change in appetite ENMT: Denies: throat pain or dental pain Card: Denies: chest pain Resp: Reports: dyspnea, non-productive cough and wheezing GI: Denies: abdominal pain, nausea, vomiting or diarrhea : Denies: dysuria Musc: Denies: neck pain or back pain Skin/Breast: Denies: rash Neuro: Denies: headache(s) PFSH ED PFSH: Medical History Psychiatric care History of umbilical hernia Anxiety Asthma CVA (cerebral vascular accident) Migraine Surgical History History of surgery on arm History of resection of small bowel History of laparotomy History of mandibular surgery Status post cholecystectomy Status post rotator cuff repair Status post hernia repair Family History Mother Headache Depression Father Stroke Hypertension Brother Depression Stroke Sister Depression Anxiety Colon cancer Social History Smoking and tobacco/nicotine status: never used tobacco/nicotine Alcohol intake: never Substance/Drug Use: never Physical Exam Const: COMMON NORMALS: no acute distress, patient oriented x3 and healthy appearing HENMT: COMMON NORMALS: normocephalic and atraumatic HEAD & SCALP: normocephalic and atraumatic Eye: COMMON NORMALS: conjunctivae normal CONJUNCTIVA: Yes conjunctivae normal Neck/C-Spine: COMMON NORMALS: full ROM and supple Chest: COMMONS NORMALS: normal inspection of the chest Resp: COMMON NORMALS: normal respiratory effort, No retractions and No use of accessory muscles AUSCULTATION: wheezes Cardio: COMMON NORMALS: regular rate, regular rhythm and No murmurs present (Cardio) RATE: regular rate RHYTHM: regular rhythm Extremity: COMMON NORMALS: normal to inspection and full ROM Neuro: COMMON NORMALS: patient oriented x3, moves all extremities and no focal motor deficits Psych: COMMON NORMALS: mental status grossly normal, Normal thought process present and cooperative THOUGHT PROCESS: Normal thought process present Skin: COMMON NORMALS: no rashes or lesions noted and no wounds GENERAL SKIN EXAM: no rashes or lesions noted Course Vital Signs: Vital signs: Vital Signs Temperature 98.2 F 05/14/25 08:06 Pulse Rate 83 05/14/25 08:48 Respiratory Rate 16 05/14/25 08:48 Blood Pressure 132/78 05/14/25 08:48 Pulse Oximetry 93 05/14/25 08:48 Oxygen Delivery Me thod Room Air 05/14/25 08:48 MDM - SOB/Dyspnea Medical Decision Making Patient presents here with likely COPD exacerbation she is improved here after breathing treatment is not requiring oxygen x-ray shows no pneumonia we will place her on 5 days of steroids she has to follow-up with PCP return if worsening. Medical Records I reviewed the patient's medical records. Lab Data I reviewed the patient's lab results. 05/14/25 08:38 05/14/25 08:38 Labs/Radiology: Radiology Impressions Chest X-Ray 05/14/25 08:11 IMPRESSION: No lobar consolidation is appreciated.No interval acute cardiopulmonary changes are appreciated. Laboratory Results WBC 7.15 10^3/uL (3.29-11.43) 05/14/25 08:38 RBC 4.82 10^6/uL (3.85-5.65) 05/14/25 08:38 Hgb 13.00 g/dL (11.27-16.99) 05/14/25 08:38 Hct 39.6 % (36-47) 05/14/25 08:38 MCV 82.2 fl (85-98) L 05/14/25 08:38 MCH 27.0 pg (27-33) 05/14/25 08:38 MCHC 32.8 g/dL (30-55) 05/14/25 08:38 RDW 14.0 % (12.1-15.1) 05/14/25 08:38 Plt Count 174 10^3/cmm (157-399) 05/14/25 08:38 MPV 10.3 fL (7.4-10.4) 05/14/25 08:38 Neut % (Auto) 50.1 % 05/14/25 08:38 Lymph % (Auto) 31.2 % 05/14/25 08:38 Luna % (Auto) 6.2 % 05/14/25 08:38 Eos % (Auto) 11.2 % 05/14/25 08:38 Baso % (Auto) 1.0 % 05/14/25 08:38 Neut # (Auto) 3.59 10^3/uL (1.8-7.7) 05/14/25 08:38 Lymph # (Auto) 2.2 10^3/uL (0.8-4.8) 05/14/25 08:38 Luna # (Auto) 0.4 10^3/uL (0.2-0.9) 05/14/25 08:38 Eos # (Auto) 0.8 10^3/uL (0.0-0.8) 05/14/25 08:38 Baso # (Auto) 0.1 10^3/uL (0.0-0.1) 05/14/25 08:38 Nucleated RBC % (auto) 0 % 05/14/25 08:38 Nucleated RBCs # 0.0 /100WBC 05/14/25 08:38 Sodium 139 mmol/L (136-145) 05/14/25 08:38 Potassium 4.1 mmol/L (3.5-5.1) 05/14/25 08:38 Chloride 103 mmol/L (98-107) 05/14/25 08:38 Carbon Dioxide 23 mmol/L (22-29) 05/14/25 08:38 Anion Gap 17.1 (5-19) 05/14/25 08:38 BUN 8 mg/dL (6-20) 05/14/25 08:38 Creatinine 0.5 mg/dL (0.5-0.9) 05/14/25 08:38 GFR Calculation 132.8 mL/min (90-130) H 05/14/25 08:38 Glucose 84 mg/dL (65-115) 05/14/25 08:38 Calculated Osmolality 286 mOsm/kg (285-295) 05/14/25 08:38 Calcium 9.2 mg/dL (8.5-10.5) 05/14/25 08:38 Total Bilirubin 0.2 mg/dL (0.15-1.2) 05/14/25 08:38 AST 23 U/L (0-32) 05/14/25 08:38 ALT 19 U/L (0-33) 05/14/25 08:38 Alkaline Phosphatase 106 U/L (35-105) H 05/14/25 08:38 Troponin T Baseline 8 ng/L (0-10) 05/14/25 08:38 NT-Pro-B Natriuret Pep 46 pg/mL (0-125) 05/14/25 08:38 Total Protein 7.3 g/dL (6.6-8.7) 05/14/25 08:38 Albumin 4.2 g/dL (3.5-5.2) 05/14/25 08:38 Globulin 3.1 g/dL (1.3-4.6) 05/14/25 08:38 All radiology interpretation(s) finalized by discharge EKG Data EKG 1: I personally reviewed and interpreted this EKG as follows: EKG Interpretation Date: 05/14/25 EKG interpretation time: 08:18 Interpretation: nsr hr [address] elevation qrs 94 qtc 403 Discharge Plan Discharge Patient Disposition: Home Clinical Impression: Acute exacerbation of chronic obstructive airways disease Condition: Stable Prescriptions: New prednisone 50 mg tablet 50 mg PO DAILY Qty: 5 0RF No Action omeprazole 40 mg capsule,delayed release(DR/EC) 40 mg PO BID albuterol sulfate 90 mcg/actuation HFA aerosol inhaler 1 inh inhalation QID hydroxyzine HCl 50 mg tablet 50 mg PO QID PRN (Reason: anxiety/insomnia) Qty: 120 2RF buspirone 10 mg tablet 10 mg PO BID Qty: 60 11RF quetiapine 100 mg tablet 200 mg PO .HS Qty: 60 11RF venlafaxine 150 mg tablet extended release 24hr 300 mg PO DAILY Qty: 60 11RF propranolol 20 mg tablet 20 mg PO BID PRN (Reason: anxiety) Qty: 60 11RF prazosin 5 mg capsule 5 mg PO QPM Qty: 30 11RF cyclobenzaprine 10 mg tablet 10 mg PO TID PRN (Reason: Muscle Spasm) atorvastatin 80 mg tablet 80 mg PO DAILY fluconazole 150 mg tablet 150 mg PO .one a week ezetimibe 10 mg tablet 10 mg PO ONCE levetiracetam 500 mg tablet 500 mg PO BID Qty: 60 4RF Rx Instructions: TAKE 1 TABLET BY MOUTH TWICE DAILY carbamazepine 400 mg tablet extended release 12 hr 400 mg PO BID 90 Days Qty: 180 3RF epinephrine [EpiPen 2-Alexy] 0.3 mg/0.3 mL Auto-Injector 0.3 mg IM Q4H PRN (Reason: Allergic Reaction) fluticasone propion-salmeterol [Advair Diskus] 250-50 mcg/dose blister with device 1 ea INHALATION BID cyclobenzaprine 10 mg tablet 10 mg PO Q8H PRN (Reason: muscle spasm) Qty: 20 0RF prednisone 20 mg tablet 20 mg PO TID Qty: 15 0RF Rx Instructions: 1 p.o. 3 times daily x3 days, 1 p.o. twice daily x2 days, 1 p.o. daily x2 days ipratropium-albuterol 0.5 mg-3 mg(2.5 mg base)/3 mL solution for nebulization 3 ml inhalation Q4H PRN (Reason: shortness of breath or wheezing) Qty: 90 0RF methylprednisolone [Medrol (Alexy)] 4 mg tablets,dose pack See Rx Instructions .ROUTE .COMPLEX Qty: 21 0RF Rx Instructions: orally per package directions Discharge Orders: Discharge ED (Routine); Ordered 05/14/25 Ordered By: Madina Ospina Referrals: Marcos Dumas MD [Primary Care Provider, [facility]] Discharge Diet: Advance as tolerated Discharge Activity: Resume usual activity Patient Instructions: COPD (Chronic Obstructive Pulmonary Disease) (ED) Print Language: Yi Coding Level of Care Code ED Set Up Mechanic Automatic Line for Joey Castro
[2025-05-14] MEDS: albuterol 2.5 mg/3 mL Neb INHALATION (08:41)
[2025-05-14] MEDS: ipratropium-albuterol 3 mL Neb INHALATION (08:41)
[2025-05-14 08:42] VITALS: PULSE 89; RESP 16; O2SAT 93
[2025-05-14] MEDS: methylPREDNISolone sod succ 125 mg/2 mL INJ IV (08:42)
[2025-05-14 08:48] VITALS: BP 132/78; PULSE 82; PULSE 83; RESP 16; O2SAT 93
[2025-05-14 08:50] LABS: Basophils # 0.1 10^3/uL (0.0-0.1); Eosinophils # 0.8 10^3/uL (0.0-0.8); Eosinophils % 11.2 %; Hematocrit 39.6 % (36-47); Lymphocytes # 2.2 10^3/uL (0.8-4.8); Lymphocytes % 31.2 %; Mean Corpuscular HGB Conc 32.8 g/dL (30-55); Mean Corpuscular Volume 82.2 fl (85-98); Mean Platelet Volume 10.3 fL (7.4-10.4); Monocytes # 0.4 10^3/uL (0.2-0.9); Monocytes % 6.2 %; Neutrophils # 3.59 10^3/uL (1.8-7.7); Neutrophils % 50.1 %; Nucleated Red Blood Cells % 0 %; Platelet Count 174 10^3/cmm (157-399); Red Blood Count 4.82 10^6/uL (3.85-5.65); White Blood Count 7.15 10^3/uL (3.29-11.43)
[2025-05-14 09:13] LABS: Troponin(5th) Baseline 8 ng/L (0-10)
[2025-05-14 09:14] LABS: Alanine Aminotransferase 19 U/L (0-33); Albumin Level 4.2 g/dL (3.5-5.2); Alkaline Phosphatase 106 U/L (35-105); Aspartate Amino Transferase 23 U/L (0-32); Blood Urea Nitrogen 8 mg/dL (6-20); Calcium 9.2 mg/dL (8.5-10.5); Carbon Dioxide 23 mmol/L (22-29); Chloride 103 mmol/L (98-107); Globulin 3.1 g/dL (1.3-4.6); Glomerular Filtration Rate 132.8 mL/min (90-130); Glucose 84 mg/dL (65-115); NT Pro B Type Natriuretic Pept 46 pg/mL (0-125); Osmolality Calculated 286 mOsm/kg (285-295); Sodium 139 mmol/L (136-145); Total Bilirubin 0.2 mg/dL (0.15-1.2); Total Protein 7.3 g/dL (6.6-8.7)
[2025-05-14 09:17] LABS: Anion Gap 17.1 (5-19); Potassium 4.1 mmol/L (3.5-5.1)
[2025-05-14 10:02] VITALS: BP 131/79; PULSE 80; O2SAT 92
== END 2025-05-14 10:03 | disposition home or self-care (01) ==
PROVIDERS: Emergency Provider Emergency Medicine; PCP Family Medicine
DX: J44.1 Chronic obstructive pulmonary disease with (acute) exacerbation (principal); Z86.73 Personal history of transient ischemic attack (TIA), and cerebral infarction without residual deficits
CPT/HCPCS: 71045; 80053; 83880; 84484; 85025; 93005; 94640; 96374; 99285; J2919; J7613; J9999

== ENCOUNTER 2025-05-23 12:52 | Emergency (ER) | payer MEDICAID, SELFPAY ==
--- OUTSIDE RECORDS SUMMARY | 2001-04-01 08:30 | XMS_ITS | Continuity of Care Document ---
Author Organization [facility] Address [id number] [place] [address] [address] [place] [address] Phone Care Team Providers Care Senior Information Security Consultant Name Role Phone Sundar Gonzales MD Unavailable Unavailable Advance Directives Directive Yes / No Effective Date File Name No Information Encounters Encounter Description Practice Location Reason(s) For Visit Diagnoses Date Provider Providers Copied on Encounter [facility], [id number] [place] [address] [address], [place], [place], [id number], [place] tel:[phone] [address] [place] Xiomara Jackson No Information 1 Janet Kwok. [address] [facility], [facility], [place], [place], [id number], [place]. tel:[phone] Family History Family Member Type Diagnosis Age [...]
[2025-05-23 12:53] VITALS: BP 125/89; PULSE 88; RESP 20; TEMP 36.3; O2SAT 99; BMI 34.4
--- NOTE | 2025-05-23 12:53 | ECG_ITS ---
[facility]: 2025-05[facility]23 Pat Name: Eliana Julio Department: Room: Gender: Female Weft Straightener: : 1980 Requested By: Madina Ospina Order Number: [id number] Sylvia MD: Charisma Ozuna M.D. Measurements Intervals [place] Rate: 91 P: -89 ID: [id number] QRS: -32 QRSD: 97 T: 85 QT: 350 QTc: 431 Interpretive Statements SINUS RHYTHM LEFT AXIS DEVIATION [QRS AXIS < -30] ANTERIOR MYOCARDIAL INFARCTION , PROBABLY OLD [40+ ms Q WAVE AND/OR ST/T ABNORMALITY IN V3/V4] Compared to ECG 05/14/2025 08:18:38 Left-axis deviation now present Myocardial infarct finding still present Heavy baseline artifacts; Need to repeat the study. Electronically Signed On 05-23-2025 17:15:31 CDT by Charisma Ozuna M.D. [email or web address]
--- NOTE | 2025-05-23 12:53 | XR_ITS ---
WS: [id number] Exam: XR chest 1V portable [id number] Date/Time of Exam: 05/23/2025 1:35 PM Reason For Exam: cp Comparison 05/14/2025. Lungs are fully inflated and clear. Normal cardiomediastinal silhouette. No pleural effusions. Dextroscoliosis of the upper T-spine. XR/XR chest 1V portable [id number] IMPRESSION: 1. Negative chest. No change.
--- OUTSIDE RECORDS SUMMARY | 2025-05-23 13:02 | XMS_ITS | Encounter Summary ---
Author Organization [employer] Address [address] [place] [address] Care Team Providers Care Automobile Drivers Name Role Phone Aileen Cary DO Primary Care Provid er Encounter Details Date Type Department Care Team (Late st Contact Info) Description 01/18/2001 Outpatient Historical HIS [facility]PT [place] [address] [facility] [place] [address] Social History Tobacco Use Types Packs/Day Years Used Date Smoking Tobacco: Never Assessed Comments Unknown Sex and Gender Information Value Date Recorded Sex Assigned at Not on file Legal Sex Female 2:36 AM EMERGENCY RESPONSE TECHNICIAN Gender Identity Not on file Sexual Orientation Not on file documented as of this encounter Plan of Treatment Not on file documented as of this encounter Visit Diagnoses Not on filedocumented in this encounter Additional Health Concerns Infection Onset Date Last Indicated Resolved Time R/O COVID-19 10/19/2021 10/19/2021 10/19/2021 7:32 PM EMERGENCY RESPONSE TECHNICIAN R/O COVID-19 03/30/2022 03/30/2022 03/30/2022 4:47 PM CDT documented as of this encounter Care Teams Automobile Drivers Relationship Specialty Start Date End Date Aileen Cary DO [address] [place] [phone] PCP - General Pediatrics 07/04/21 documented as of this encounter
--- OUTSIDE RECORDS SUMMARY | 2025-05-23 13:02 | XMS_ITS | Encounter Summary ---
Author Organization [employer] Address [address] [place] [address] Care Team Providers Care Watershed Tender Name Role Phone Aileen Cary DO Primary Care Provid er Encounter Details Date Type Department Care Team (Late st Contact Info) Description 02/15/2002 Outpatient Historical HIS [facility] DEPT OF FAMILY MEDICINE Anayeli Muller MD [address] [place] [address] Social History Tobacco Use Types Packs/Day Years Used Date Smoking Tobacco: Never Assessed Comments Unknown Sex and Gender Information Value Date Recorded Sex Assigned at Not on file Legal Sex Female 2:36 AM PIPING DESIGNER Gender Identity Not on file Sexual Orientation Not on file documented as of this encounter Plan of Treatment Not on file documented as of this encounter Visit Diagnoses Not on filedocumented in this encounter Additional Health Concerns Infection Onset Date Last Indicated Resolved Time R/O COVID-19 10/19/2021 10/19/2021 10/19/2021 7:32 PM PIPING DESIGNER R/O COVID-19 03/30/2022 03/30/2022 03/30/2022 4:47 PM CDT documented as of this encounter Care Teams Watershed Tender Relationship Specialty Start Date End Date Aileen Cary DO [address] [place] [phone] PCP - General Pediatrics 07/04/21 documented as of this encounter
--- OUTSIDE RECORDS SUMMARY | 2025-05-23 13:02 | XMS_ITS | Encounter Summary ---
Author Organization [employer] Address [address] [place] [address] Care Team Providers Care Pharmacy Benefit Manager Name Role Phone Aileen Cary DO Primary Care Provid er Encounter Details Date Type Department Care Team (Late st Contact Info) Description 04/02/2002 Outpatient Historical [facility] Anayeli Muller MD [address] [place] [address] Social History Tobacco Use Types Packs/Day Years Used Date Smoking Tobacco: Never Assessed Comments Unknown Sex and Gender Information Value Date Recorded Sex Assigned at Not on file Legal Sex Female 2:36 AM DIESEL SCOOP OPERATOR Gender Identity Not on file Sexual Orientation Not on file documented as of this encounter Plan of Treatment Not on file documented as of this encounter Visit Diagnoses Not on filedocumented in this encounter Additional Health Concerns Infection Onset Date Last Indicated Resolved Time R/O COVID-19 10/19/2021 10/19/2021 10/19/2021 7:32 PM DIESEL SCOOP OPERATOR R/O COVID-19 03/30/2022 03/30/2022 03/30/2022 4:47 PM CDT documented as of this encounter Care Teams Pharmacy Benefit Manager Relationship Specialty Start Date End Date Aileen Cary DO [address] [place] [phone] PCP - General Pediatrics 07/04/21 documented as of this encounter
--- OUTSIDE RECORDS SUMMARY | 2025-05-23 13:02 | XMS_ITS | Encounter Summary ---
Author Organization [facility] Address [address] [place] [address] Care Team Providers Care Consulting Solution Manager Name Role Phone Aileen Cary DO Primary Care Provid er Encounter Details Date Type Department Care Team (Late st Contact Info) Description 08/16/2002 Outpatient Historical [facility] Vi Oakes [address] [employer] [facility] [address] [place] [address] [place] [address] [employer] [facility] [place] [address] Social History Tobacco Use Types Packs/Day Years Used Date Smoking Tobacco: Never Assessed Comments Unknown Sex and Gender Information Value Date Recorded Sex Assigned at Not on file Legal Sex Female 2:36 AM CINDER PIT WORKER Gender Identity Not on file Sexual Orientation Not on file documented as of this encounter Plan of Treatment Not on file documented as of this encounter Visit Diagnoses Not on filedocumented in this encounter Additional Health Concerns Infection Onset Date Last Indicated Resolved Time R/O COVID-19 10/19/2021 10/19/2021 10/19/2021 7:32 PM CINDER PIT WORKER R/O COVID-19 03/30/2022 03/30/2022 03/30/2022 4:47 PM CDT documented as of this encounter Care Teams Consulting Solution Manager Relationship Specialty Start Date End Date Aileen Cary DO [facility] [place] [address] PCP - General Pediatrics 07/04/21 documented as of this encounter
--- OUTSIDE RECORDS SUMMARY | 2025-05-23 13:02 | XMS_ITS | Encounter Summary ---
Author Organization [facility] Address [address] [place] [address] Care Team Providers Care Street Sprinkler Name Role Phone Aileen Cary DO Primary Care Provid er Encounter Details Date Type Department Care Team (Late st Contact Info) Description 02/15/2002 Outpatient Historical HIS [facility] Anayeli Christine MD [address] [place] [address] PAIN IN LIMB (Primary Dx) Social History Tobacco Use Types Packs/Day Years Used Date Smoking Tobacco: Never Assessed Comments Unknown Sex and Gender Information Value Date Recorded Sex Assigned at Not on file Legal Sex Female 2:36 AM WATER QUALITY SPECIALIST Gender Identity Not on file Sexual Orientation Not on file documented as of this encounter Plan of Treatment Not on file documented as of this encounter Visit Diagnoses Diagnosis Pain in limb- Primary documented in this encounter Additional Health Concerns Infection Onset Date Last Indicated Resolved Time R/O COVID-19 10/19/2021 10/19/2021 10/19/2021 7:32 PM WATER QUALITY SPECIALIST R/O COVID-19 03/30/2022 03/30/2022 03/30/2022 4:47 PM CDT documented as of this encounter Care Teams Street Sprinkler Relationship Specialty Start Date End Date Aileen Cary DO [address] [place] [phone] PCP - General Pediatrics 07/04/21 documented as of this encounter
--- OUTSIDE RECORDS SUMMARY | 2025-05-23 13:02 | XMS_ITS | Encounter Summary ---
Author Organization [employer] Address [address] [place] [address] Care Team Providers Care Housekeeping Lead Name Role Phone Aileen Cary DO Primary Care Provid er Encounter Details Date Type Department Care Team (Late st Contact Info) Description 04/12/2002 Outpatient Historical HIS [facility] DEPT OF [place] [address] [facility] [place] [address] Social History Tobacco Use Types Packs/Day Years Used Date Smoking Tobacco: Never Assessed Comments Unknown Sex and Gender Information Value Date Recorded Sex Assigned at Not on file Legal Sex Female 2:36 AM SHOE LACER Gender Identity Not on file Sexual Orientation Not on file documented as of this encounter Plan of Treatment Not on file documented as of this encounter Visit Diagnoses Not on filedocumented in this encounter Additional Health Concerns Infection Onset Date Last Indicated Resolved Time R/O COVID-19 10/19/2021 10/19/2021 10/19/2021 7:32 PM SHOE LACER R/O COVID-19 03/30/2022 03/30/2022 03/30/2022 4:47 PM CDT documented as of this encounter Care Teams Housekeeping Lead Relationship Specialty Start Date End Date Aileen Cary DO [address] [place] [phone] PCP - General Pediatrics 07/04/21 documented as of this encounter
--- OUTSIDE RECORDS SUMMARY | 2025-05-23 13:02 | XMS_ITS | Encounter Summary ---
Author Organization [employer] Address [address] [place] [address] Care Team Providers Care Director Information Name Role Phone Aileen Cary DO Primary Care Provid er Encounter Details Date Type Department Care Team (Late st Contact Info) Description 06/22/[address] [facility] DEPT OF [place] [address] [place] [address] Social History Tobacco Use Types Packs/Day Years Used Date Smoking Tobacco: Never Assessed Comments Unknown Sex and Gender Information Value Date Recorded Sex Assigned at Not on file Legal Sex Female 2:36 AM FOREST RANGER TECHNICIAN Gender Identity Not on file Sexual Orientation Not on file documented as of this encounter Plan of Treatment Not on file documented as of this encounter Visit Diagnoses Not on filedocumented in this encounter Additional Health Concerns Infection Onset Date Last Indicated Resolved Time R/O COVID-19 10/19/2021 10/19/2021 10/19/2021 7:32 PM FOREST RANGER TECHNICIAN R/O COVID-19 03/30/2022 03/30/2022 03/30/2022 4:47 PM CDT documented as of this encounter Care Teams Director Information Relationship Specialty Start Date End Date Aileen Cary DO [address] [place] [phone] PCP - General Pediatrics 07/04/21 documented as of this encounter
--- OUTSIDE RECORDS SUMMARY | 2025-05-23 13:02 | XMS_ITS | Encounter Summary ---
Author Organization [employer] Address [address] [place] [address] Care Team Providers Care Wheel And Pinion Inspector Name Role Phone Aileen Cary DO Primary Care Provid er Encounter Details Date Type Department Care Team (Late st Contact Info) Description 05/27/2002 Outpatient Historical HIS [facility] DEPT OF FAMILY MEDICINE Anayeli Muller MD [address] [place] [address] Social History Tobacco Use Types Packs/Day Years Used Date Smoking Tobacco: Never Assessed Comments Unknown Sex and Gender Information Value Date Recorded Sex Assigned at Not on file Legal Sex Female 2:36 AM DRINK MIXER Gender Identity Not on file Sexual Orientation Not on file documented as of this encounter Plan of Treatment Not on file documented as of this encounter Visit Diagnoses Not on filedocumented in this encounter Additional Health Concerns Infection Onset Date Last Indicated Resolved Time R/O COVID-19 10/19/2021 10/19/2021 10/19/2021 7:32 PM DRINK MIXER R/O COVID-19 03/30/2022 03/30/2022 03/30/2022 4:47 PM CDT documented as of this encounter Care Teams Wheel And Pinion Inspector Relationship Specialty Start Date End Date Aileen Cary DO [address] [place] [phone] PCP - General Pediatrics 07/04/21 documented as of this encounter
--- OUTSIDE RECORDS SUMMARY | 2025-05-23 13:02 | XMS_ITS | Encounter Summary ---
Author Organization [employer] Address [address] [place] [address] Care Team Providers Care Independent Freight Agent Name Role Phone Aileen Cary DO Primary Care Provid er Encounter Details Date Type Department Care Team (Late st Contact Info) Description 03/01/2002 Outpatient Historical [facility] Anayeli Muller MD [address] [place] [address] PAIN IN LIMB (Primary Dx) Social History Tobacco Use Types Packs/Day Years Used Date Smoking Tobacco: Never Assessed Comments Unknown Sex and Gender Information Value Date Recorded Sex Assigned at Not on file Legal Sex Female 2:36 AM SPRINKLER WORKER Gender Identity Not on file Sexual Orientation Not on file documented as of this encounter Plan of Treatment Not on file documented as of this encounter Visit Diagnoses Diagnosis Pain in limb- Primary documented in this encounter Additional Health Concerns Infection Onset Date Last Indicated Resolved Time R/O COVID-19 10/19/2021 10/19/2021 10/19/2021 7:32 PM SPRINKLER WORKER R/O COVID-19 03/30/2022 03/30/2022 03/30/2022 4:47 PM CDT documented as of this encounter Care Teams Independent Freight Agent Relationship Specialty Start Date End Date Aileen Cary DO [address] [place] [phone] PCP - General Pediatrics 07/04/21 documented as of this encounter
--- OUTSIDE RECORDS SUMMARY | 2025-05-23 13:02 | XMS_ITS | Data Portability ---
Author Organization RACHEL Regino Russo [facility] Jonnie Don [facility] Address [address] [facility] [address] [place] [address] Assessment Encounter Date Assessment Date Assessment LastModified [...] quantitativ e, serum or plasma 2023 024 [facility], [address], [facility] [address], [place], [address], 4 12:24:21 CBC 2023 024 [facility], [address], [place], [address], 4 15:48:06 Referral None recorded. Procedures None recorded. Surgeries None recorded. Imaging None recorded. Medication Orders prednisone 20 mg tablet 2023 024 [id number], [address], [place], [place], [id number], 4 14:49:20 Medrol (Alexy) 4 mg tablets in a dose pack 2022 024 [id number], [address], [place], [place], [id number], 15:31:56 Patient TargetsNo targets recorded. Patient Instructions Encounter Date Encounter Id Patient Instructions Last Modified By Organization Details Last Modified Time 12/04/2023 [id number] Return to clinic if worsening symptoms or if not improving. Advised her to see her PCP as soon as possible. Not available 12/08/2023 11:17:09 Reason for Referral None Reported. Results Created Date Observation Date Name Description Value Unit Range Abnormal Flag Note LastModifiedBy Organization Detail LastModifiedTime 11/27/1912/04/2023 CBC WBC 9.3 x10 4.0-10 .5 Not Available [facility] [address], [place], [address], 12/04/2023 15:48:06 11/27/1912/04/2023 CBC RBC 4.59 x10 3.50-5 .50 Not Available [facility] [address], [place], [address], 12/04/2023 15:48:06 11/27/19 24 12/04/2023 CBC HGB 13.6 g/dL 12.0-1 6.0 Not Available [facility] [address] [facility] [address], [place], [address], 12/04/2023 15:48:06 11/27/1912/04/2023 CBC HCT 39.5 % 37.0-4 7.0 Not Available [facility] [address], [place], [address], 12/04/2023 15:48:06 11/27/19 24 12/04/2023 CBC MCV 86.0 fL 80.0-9 9.9 Not Available [facility] [address] [facility] [address], [place], [address], 12/04/2023 15:48:06 11/27/19 24 12/04/2023 CBC MCH 29.6 pg 27.0-3 2.0 Not Available [facility] [address] [facility], [place], [address], 12/04/2023 15:48:06 11/27/19 24 12/04/2023 CBC MCHC 34.4 g/dL 32.0-3 6.0 Not Available [facility] [address] [facility], [place], [address], 12/04/2023 15:48:06 11/27/19 24 12/04/2023 CBC RDW 14.8 % 11.5-1 4.6 high Not Available [facility] [address] [address], [place], [address], 12/04/2023 15:48:06 11/27/19 24 12/04/2023 CBC plt 366.1 x10 140.0- 451.0 Not Available [facility] [address] [facility] [address], [place], [address], 12/04/2023 15:48:06 11/27/19 24 12/04/2023 CBC lymphocytes % 23.4 % 20.0-5 0.0 Not Available [facility] [address] [facility] [address], [place], [address], 12/04/2023 15:48:06 11/27/19 24 12/04/2023 CBC granulcytes % 65.3 % 30.0-7 0.0 Not Available [facility] [address] [facility] [address], [place], [address], 12/04/2023 15:48:06 11/27/19 24 12/04/2023 CBC monocytes % 5.6 % 2.0-10 .0 Not Available [facility] [address] [facility] [address] [address], [place], [address], 12/04/2023 15:48:06 11/27/19 24 12/04/2023 CBC granulcytes# 6.1 x10 Not Jossie ilable [facility] [address] [address], [place], [address], 12/04/2023 15:48:06 11/27/19 24 12/04/2023 CBC lymphocytes # 2.2 x10 Not Available [facility] [address] [facility] [address], [place], [address], 12/04/2023 15:48:06 11/27/19 24 12/04/2023 CBC monocytes # 0.5 x10 Not Avai lable [facility] [address] [address], [place], [address], 12/04/2023 15:48:06 12/04/19 24 12/05/2023 C-JAMAL CTIVE PROTE IN C-reactive protein 6.6 mg/L <8.0 normal Not Available [address] [address] [place], [address], 12/05/2023 12:24:21 Result Notes None recorded. Problems Name Problem SNOMED Code Status Onset Date Resolution Date Notes Provider Name and Address Organization Details Recorded Time Insect bite - wound 128856629 Active 023 Krish Meadows MD [address] [place], [address] [facility] 02/24/2023 17:09:18 Problem Notes None recorded. Medical Equipment None Reported. Allergies Allergen ID Allergen Name Allergen Category Reaction Reaction Severity Criticality Documentation Date Start Date Code Code System Note Provider Name and Address Organization Details Recorded Time 1349 aspirin medicatio n Not available Not available Not available 02/24/2023 1191 RxNorm BRENDONSA NELSON wagner [facility] 04/11/202 3 16:54:41 1350 naproxen medicatio n Not available Not available Not available 02/24/2023 7258 RxNorm BRENDON wagner [facility] 3 16:54:48 1351 trazodone medicatio n Not available Not available Not available 02/24/2023 74355 RxNorm BRENDON wagner [facility] 3 16:55:02 1352 doxycycli ne Not available Not available Not available Not available 02/24/2023 3640 RxNorm BRENDON wagner [facility] 3 16:55:10 37787 trazodone hydrochlo ride medicatio n Not available Not available Not available 06/13/2023 37275 RxNorm Comme nt: Recor ded 01/05 3:59P M by Padmini Ely, Offic e Visit ; Promo juan josé; Signi fican ce: *; Reaso n: Drug aller gy; ; Not Available [facility] 3 02:24:08 70253 atorvasta tin calcium propylene glycol solvate Not available Not available Not available Not available 06/13/2023 32485 93 RxNorm Comme nt: Recor ded 01/05 3:59P M by McGiovanny Ely, Offic e Visit ; Promo juan josé; Signi fickory ce: *; Reaso n: Drug aller gy; ; Not Available [facility] 3 02:24:08 02486 [place] Aspirin medicatio n Not available Not available Not available 06/13/2023 58832 8 RxNorm Comme nt: Recor ded 01/05 3:58P M by Padmini Ely, Offic e Visit ; Promo juan josé; Signi fickory ce: *; Reaso n: Drug aller gy; ; Not Available [facility] 3 02:24:09 71783 doxycycli ne monohydra te medicatio n Not available Not available Not available 06/13/202393919 2 RxNorm Comme nt: Recor ded 01/05 3:59P M by Padmini Ely, Offic e Visit ; [place] can; [place] issa ce: *; Reaso n: Drug aller gy; ; Not Available [facility] 3 02:24:09 85864 topiramat e medicatio n Not available Not available Not available 12/04/2023 45966 RxNorm Surekhaselvin Izquierdo [facility] 4 14:17:38 Medications Name Sig Start Date [...] Heart rate Respiratory rate Body temperature Systolic And Diastolic Provider Name and Address Organization Details Last Updated DateTime 4 170.18 cm 33.1 kg/m2 57057.4 3 g 99 % 99 % 73 /min 15 /min 97.3 [degF] 150/106 mm[Hg] Surekhaselvin Izquierdo [facility] 4 14:17:25 Date Recorded Body height Body mass index (BMI) Body weight Respiratory rate Body temperature Heart rate Oxygen saturation Oxygen saturation in Arterial blood by Pulse oximetry Systolic And Diastolic Provider Name and Address Organization Details Last Updated DateTime 3 170.18 cm 32.9 kg/m2 22940.4 g 20 /min 98.1 [degF] 100 /min 95 % 95 % 134/90 mm[Hg] BRENDON POWELLG [facility] 3 17:01:05 Social History None recorded. [...] Code Diagnosis Note 5239 Krish Meadows MD [facility] ([facility]) [address] [place] [address] 02/24/2023 16:49:09 03/03/2023 11:32:34 Insect bite - wound 518015115 T14.8XXA reaction ot bite is most likely culprit. Benadryl q4h PRN and start medrol dose alexy given the amount of pain. [id number] ROLF PENA [facility] ([facility]) [address] [place] [address] 12/04/2023 13:51:40 12/08/2023 13:16:44 Trigeminal nerve inflammation 436862311 G50.8 Health Concerns Section Related Observation LastModified by Organization Detai ls LastModified Time None Recorded Concern Status LastModified by Organization Details LastModified Time None Recorded Advance Directives Directive None Recorded Payers Insurance Date Sequence Insurance Name Policy Number Policy Dickerson Covered Member ID Dickerson Member ID Guarantor Name 12/04/2023 1 [facility] [place] - [place] VIDYA Julio [id number] Eliana Julio Notes Date Note Type Note Provider Name and Address Organization Details Recorded Time 02/24/2023 text/html The patient pres nts today after possible bug bite/spine to the left 4th finger. She states it happened as she was opening the door. she did not see the insect. Krish Meadows MD [address] [place], [address], [facility] 02/24/2023 17:22:05 12/04/2023 text/html Generic HPI TemplateReported bypatient.Location:Rig ht side of face and neck Severity:Moderate Duration:started 1 week ago Alleviating factors:none Associated Symptoms:jaw pain, swelling of glands and neck, nausea, vomiting, sore throat, balance issues, swelling of roof of mouth, swelling of tongue, ear pain, popping of right ear ROLF PENA [address] [place], [address], [facility] 12/08/2023 11:17:46 OBGyn Episode No OBEpisode recorded.
--- OUTSIDE RECORDS SUMMARY | 2025-05-23 13:02 | XMS_ITS | Encounter Summary ---
Author Organization [employer] [facility] Address [address] [place] [address] Care Team Providers Care Sdet Name Role Phone Aileen Cary DO Primary Care Provid er Encounter Details Date Type Department Care Team (Late st Contact Info) Description 11/17/2002 Outpatient Historical HIS PATIENT IN A BED Andre Aceves MD [address] [place] [address] Merry Lopez MD [address] [place] [address] OTHER CURR COND-ANTEPARTUM (Primary Dx) Social History Tobacco Use Types Packs/Day Years Used Date Smoking Tobacco: Never Assessed Comments Unknown Sex and Gender Information Value Date Recorded Sex Assigned at Not on file Legal Sex Female 2:36 AM HARNESS MAKER Gender Identity Not on file Sexual Orientation Not on file documented as of this encounter Plan of Treatment Not on file documented as of this encounter Visit Diagnoses Diagnosis Other current maternal conditions classifiable elsewhere, antepartum- Primary documented in this encounter Additional Health Concerns Infection Onset Date Last Indicated Resolved Time R/O COVID-19 10/19/2021 10/19/2021 10/19/2021 7:32 PM HARNESS MAKER R/O COVID-19 03/30/2022 03/30/2022 03/30/2022 4:47 PM CDT documented as of this encounter Care Teams Sdet Relationship Specialty Start Date End Date Aileen Cary DO [facility] [place] [address] PCP - General Pediatrics 07/04/21 documented as of this encounter
--- OUTSIDE RECORDS SUMMARY | 2025-05-23 13:02 | XMS_ITS | Encounter Summary ---
Author Organization [facility] Address [address] [place] [address] Care Team Providers Care Experience Specialist Name Role Phone Aileen Cary DO Primary Care Provid er Encounter Details Date Type Department Care Team (Latest Contact Info) Description 06/22/2002 Outpatient Historical HIS [facility] CHITO Osorio, [place] [address] [place] [address] JOINT PAIN-L/LEG (Primary Dx) Social History Tobacco Use Types Packs/Day Years Used Date Smoking Tobacco: Never Assessed Comments Unknown Sex and Gender Information Value Date Recorded Sex Assigned at Not on file Legal Sex Female 2:36 AM SENIOR COMPENSATION ANALYST Gender Identity Not on file Sexual Orientation Not on file documented as of this encounter Plan of Treatment Not on file documented as of this encounter Visit Diagnoses Diagnosis Pain in joint, lower leg- Primary documented in this encounter Additional Health Concerns Infection Onset Date Last Indicated Resolved Time R/O COVID-19 10/19/2021 10/19/2021 10/19/2021 7:32 PM SENIOR COMPENSATION ANALYST R/O COVID-19 03/30/2022 03/30/2022 03/30/2022 4:47 PM CDT documented as of this encounter Care Teams Experience Specialist Relationship Specialty Start Date End Date Aileen Cary DO [address] [place] [address] PCP - General Pediatrics 07/04/21 documented as of this encounter
--- OUTSIDE RECORDS SUMMARY | 2025-05-23 13:02 | XMS_ITS | Encounter Summary ---
Author Organization [employer] Address [address] [place] [address] Care Team Providers Care Furniture Salesperson Name Role Phone Aileen Cary DO Primary Care Provid er Encounter Details Date Type Department Care Team (Late st Contact Info) Description 01/13/2002 Outpatient Historical HIS [facility] DEPT OF FAMILY MEDICINE Anayeli Muller MD [address] [place] [address] Social History Tobacco Use Types Packs/Day Years Used Date Smoking Tobacco: Never Assessed Comments Unknown Sex and Gender Information Value Date Recorded Sex Assigned at Not on file Legal Sex Female 2:36 AM UNIVERSITY CONTROLLER Gender Identity Not on file Sexual Orientation Not on file documented as of this encounter Plan of Treatment Not on file documented as of this encounter Visit Diagnoses Not on filedocumented in this encounter Additional Health Concerns Infection Onset Date Last Indicated Resolved Time R/O COVID-19 10/19/2021 10/19/2021 10/19/2021 7:32 PM UNIVERSITY CONTROLLER R/O COVID-19 03/30/2022 03/30/2022 03/30/2022 4:47 PM CDT documented as of this encounter Care Teams Furniture Salesperson Relationship Specialty Start Date End Date Aileen Cary DO [address] [place] [phone] PCP - General Pediatrics 07/04/21 documented as of this encounter
--- OUTSIDE RECORDS SUMMARY | 2025-05-23 13:02 | XMS_ITS | Encounter Summary ---
Author Organization [employer] Address [address] [place] [address] Care Team Providers Care Computed Tomography Technician Name Role Phone Aileen Cary DO Primary Care Provid er Encounter Details Date Type Department Care Team (Late st Contact Info) Description 03/31/2002 Outpatient Historical HIS [facility]PT [facility] FAMILY MEDICINE Anayeli Muller MD [address] [place] [address] Social History Tobacco Use Types Packs/Day Years Used Date Smoking Tobacco: Never Assessed Comments Unknown Sex and Gender Information Value Date Recorded Sex Assigned at Not on file Legal Sex Female 2:36 AM PARBOILER Gender Identity Not on file Sexual Orientation Not on file documented as of this encounter Plan of Treatment Not on file documented as of this encounter Visit Diagnoses Not on filedocumented in this encounter Additional Health Concerns Infection Onset Date Last Indicated Resolved Time R/O COVID-19 10/19/2021 10/19/2021 10/19/2021 7:32 PM PARBOILER R/O COVID-19 03/30/2022 03/30/2022 03/30/2022 4:47 PM CDT documented as of this encounter Care Teams Computed Tomography Technician Relationship Specialty Start Date End Date Aileen Cary DO [address] [place] [phone] PCP - General Pediatrics 07/04/21 documented as of this encounter
--- OUTSIDE RECORDS SUMMARY | 2025-05-23 13:03 | XMS_ITS | Encounter Summary ---
Author Organization [facility] Address [address] [place] [address] Care Team Providers Care It Auditor Name Role Phone Aileen Cary DO Primary Care Provid er Encounter Details Date Type Department Care Team (Late st Contact Info) Description 03/31/2003 Outpatient Historical [facility] Family Medicine [address] [employer] [facility] [address] [place] [address] [place] [address] [employer] [facility] [place] [address] Social History Tobacco Use Types Packs/Day Years Used Date Smoking Tobacco: Never Assessed Comments Unknown Sex and Gender Information Value Date Recorded Sex Assigned at Not on file Legal Sex Female 2:36 AM CONSTRUCTION ENGINEERING MANAGER Gender Identity Not on file Sexual Orientation Not on file documented as of this encounter Plan of Treatment Not on file documented as of this encounter Visit Diagnoses Not on filedocumented in this encounter Additional Health Concerns Infection Onset Date Last Indicated Resolved Time R/O COVID-19 10/19/2021 10/19/2021 10/19/2021 7:32 PM CONSTRUCTION ENGINEERING MANAGER R/O COVID-19 03/30/2022 03/30/2022 03/30/2022 4:47 PM CDT documented as of this encounter Care Teams It Auditor Relationship Specialty Start Date End Date Aileen Cary DO [address] [place] [address] PCP - General Pediatrics 07/04/21 documented as of this encounter
--- OUTSIDE RECORDS SUMMARY | 2025-05-23 13:03 | XMS_ITS | Encounter Summary ---
Author Organization [employer] [facility] Address [address] [place] [address] Care Team Providers Care Single Spindle Screw Machine Operator Name Role Phone Aileen Cary DO Primary Care Provid er Encounter Details Date Type Department Care Team (Latest Contact Info) Description 01/27/2000 Outpatient Historical HIS OBSERV[facility] BED Merry Lopez MD [address] [place] [address] Other specified complication, antepartum(646.83) (Primary Dx) Social History Tobacco Use Types Packs/Day Years Used Date Smoking Tobacco: Never Assessed Comments Unknown Sex and Gender Information Value Date Recorded Sex Assigned at Not on file Legal Sex Female 2:36 AM SPEECH AND LANGUAGE SPECIALIST Gender Identity Not on file Sexual Orientation Not on file documented as of this encounter Plan of Treatment Not on file documented as of this encounter Visit Diagnoses Diagnosis Other specified complication, antepartum(646.83)- Primary Other specified complication, antepartum documented in this encounter Additional Health Concerns Infection Onset Date Last Indicated Resolved Time R/O COVID-19 10/19/2021 10/19/2021 10/19/2021 7:32 PM SPEECH AND LANGUAGE SPECIALIST R/O COVID-19 03/30/2022 03/30/2022 03/30/2022 4:47 PM CDT documented as of this encounter Care Teams Single Spindle Screw Machine Operator Relationship Specialty Start Date End Date Aileen Cary DO [facility] [place] [address] PCP - General Pediatrics 07/04/21 documented as of this encounter
--- OUTSIDE RECORDS SUMMARY | 2025-05-23 13:03 | XMS_ITS | Encounter Summary ---
Author Organization [facility] Address [address] [place] [address] Care Team Providers Care Trust Manager Name Role Phone Aileen Cary DO Primary Care Provid er Encounter Details Date Type Department Care Team (Late st Contact Info) Description 04/18/2003 Outpatient Historical [facility] Family Medicine [address] [address] [facility] [address] [place] [address] [place] [address] [address] [facility] [place] [address] Social History Tobacco Use Types Packs/Day Years Used Date Smoking Tobacco: Never Assessed Comments Unknown Sex and Gender Information Value Date Recorded Sex Assigned at Not on file Legal Sex Female 2:36 AM HUMAN SERVICES CARE SPECIALIST Gender Identity Not on file Sexual Orientation Not on file documented as of this encounter Plan of Treatment Not on file documented as of this encounter Visit Diagnoses Not on filedocumented in this encounter Additional Health Concerns Infection Onset Date Last Indicated Resolved Time R/O COVID-19 10/19/2021 10/19/2021 10/19/2021 7:32 PM HUMAN SERVICES CARE SPECIALIST R/O COVID-19 03/30/2022 03/30/2022 03/30/2022 4:47 PM CDT documented as of this encounter Care Teams Trust Manager Relationship Specialty Start Date End Date Aileen Cary DO [facility] [place] [address] PCP - General Pediatrics 07/04/21 documented as of this encounter
--- OUTSIDE RECORDS SUMMARY | 2025-05-23 13:03 | XMS_ITS | Encounter Summary ---
Author Organization [facility] Address [address] [place] [address] Care Team Providers Care Mechanical Estimator Name Role Phone Aileen Cary DO Primary Care Provid er Encounter Details Date Type Department Care Team (Latest Contact Info) Description 03/31/2003 Outpatient Historical HIS [facility] CHITO Boyd, MD [address] NO ADDRESS ON FILE JOINT PAIN-SHLDER (Primary Dx) Social History Tobacco Use Types Packs/Day Years Used Date Smoking Tobacco: Never Assessed Comments Unknown Sex and Gender Information Value Date Recorded Sex Assigned at Not on file Legal Sex Female 2:36 AM AUTOMOTIVE FLEET SUPERVISOR Gender Identity Not on file Sexual Orientation Not on file documented as of this encounter Plan of Treatment Not on file documented as of this encounter Visit Diagnoses Diagnosis Pain in joint, shoulder region- Primary documented in this encounter Additional Health Concerns Infection Onset Date Last Indicated Resolved Time R/O COVID-19 10/19/2021 10/19/2021 10/19/2021 7:32 PM AUTOMOTIVE FLEET SUPERVISOR R/O COVID-19 03/30/2022 03/30/2022 03/30/2022 4:47 PM CDT documented as of this encounter Care Teams Mechanical Estimator Relationship Specialty Start Date End Date Aileen Cary DO [address] [place] [phone] PCP - General Pediatrics 07/04/21 documented as of this encounter
--- OUTSIDE RECORDS SUMMARY | 2025-05-23 13:03 | XMS_ITS | Encounter Summary ---
Author Organization [employer] [facility] Address [address] [place] [address] Care Team Providers Care Stretching Press Operator Name Role Phone Aileen Cary DO Primary Care Provid er Encounter Details Date Type Department Care Team (Late st Contact Info) Description 02/27/2003 Outpatient Historical HIS PATIENT IN A BED Andre Aceves MD [address] [place] [address] Merry Lopez MD [address] [place] [address] OTHER CURR COND-ANTEPARTUM (Primary Dx) Social History Tobacco Use Types Packs/Day Years Used Date Smoking Tobacco: Never Assessed Comments Unknown Sex and Gender Information Value Date Recorded Sex Assigned at Not on file Legal Sex Female 2:36 AM COREMAKER Gender Identity Not on file Sexual Orientation Not on file documented as of this encounter Plan of Treatment Not on file documented as of this encounter Visit Diagnoses Diagnosis Other current maternal conditions classifiable elsewhere, antepartum- Primary documented in this encounter Additional Health Concerns Infection Onset Date Last Indicated Resolved Time R/O COVID-19 10/19/2021 10/19/2021 10/19/2021 7:32 PM COREMAKER R/O COVID-19 03/30/2022 03/30/2022 03/30/2022 4:47 PM CDT documented as of this encounter Care Teams Stretching Press Operator Relationship Specialty Start Date End Date Aileen Cary DO [facility] [place] [address] PCP - General Pediatrics 07/04/21 documented as of this encounter
--- OUTSIDE RECORDS SUMMARY | 2025-05-23 13:03 | XMS_ITS | Encounter Summary ---
Author Organization [employer] Address [address] [place] [address] Care Team Providers Care Favor Maker Name Role Phone Aileen Cary DO Primary Care Provid er Encounter Details Date Type Department Care Team (Latest Contact Info) Description 03/04/2003 Outpatient Historical HIS PATIENT IN A BED Merry Lopez MD [address] [place] [phone] THREAT LABOR NEC-ANTEPAR (Primary Dx) Social History Tobacco Use Types Packs/Day Years Used Date Smoking Tobacco: Never Assessed Comments Unknown Sex and Gender Information Value Date Recorded Sex Assigned at Not on file Legal Sex Female 2:36 AM COOK CANDY Gender Identity Not on file Sexual Orientation Not on file documented as of this encounter Plan of Treatment Not on file documented as of this encounter Visit Diagnoses Diagnosis Other threatened labor, antepartum- Primary documented in this encounter Additional Health Concerns Infection Onset Date Last Indicated Resolved Time R/O COVID-19 10/19/2021 10/19/2021 10/19/2021 7:32 PM COOK CANDY R/O COVID-19 03/30/2022 03/30/2022 03/30/2022 4:47 PM CDT documented as of this encounter Care Teams Favor Maker Relationship Specialty Start Date End Date Aileen Cary DO [address] [place] [phone] PCP - General Pediatrics 07/04/21 documented as of this encounter
--- OUTSIDE RECORDS SUMMARY | 2025-05-23 13:03 | XMS_ITS | Encounter Summary ---
Author Organization [employer] Address [address] [place] [address] Care Team Providers Care Egg Grader Name Role Phone Aileen Cary DO Primary Care Provid er Encounter Details Date Type Department Care Team (Latest Contact Info) Description 03/06/2003 Inpatient Historical HIS PATIENT IN A BED Merry Lopez MD [address] [place] [phone] OB INJ PELV ORG NEC-DEL (Primary Dx) Social History Tobacco Use Types Packs/Day Years Used Date Smoking Tobacco: Never Assessed Comments Unknown Sex and Gender Information Value Date Recorded Sex Assigned at Not on file Legal Sex Female 2:36 AM CITY TAX AUDITOR Gender Identity Not on file Sexual Orientation Not on file documented as of this encounter Plan of Treatment Not on file documented as of this encounter Visit Diagnoses Diagnosis Other injury to pelvic organs, with delivery- Primary documented in this encounter Additional Health Concerns Infection Onset Date Last Indicated Resolved Time R/O COVID-19 10/19/2021 10/19/2021 10/19/2021 7:32 PM CITY TAX AUDITOR R/O COVID-19 03/30/2022 03/30/2022 03/30/2022 4:47 PM CDT documented as of this encounter Care Teams Egg Grader Relationship Specialty Start Date End Date Aileen Cary DO [address] [place] [phone] PCP - General Pediatrics 07/04/21 documented as of this encounter
--- OUTSIDE RECORDS SUMMARY | 2025-05-23 13:03 | XMS_ITS | Encounter Summary ---
Author Organization [employer] [facility] Address 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 Gender Identity Not on file Sexual Orientation Not on file documented as of this encounter Plan of Treatment Not on file documented as of this encounter Visit Diagnoses Diagnosis Threatened premature labor, antepartum(644.03)- Primary Threatened premature labor, antepartum documented in this encounter Additional Health Concerns Infection Onset Date Last Indicated Resolved Time R/O COVID-19 10/19/2021 10/19/2021 10/19/2021 7:32 PM LINE INSTALLER TROLLEY R/O COVID-19 03/30/2022 03/30/2022 03/30/2022 4:47 PM CDT documented as of this encounter Care Teams Cash Application Clerk Relationship Specialty Start Date End Date Aileen Cary DO [facility] [place] [address] PCP - General Pediatrics 07/04/21 documented as of this encounter
--- OUTSIDE RECORDS SUMMARY | 2025-05-23 13:03 | XMS_ITS ---
Author Organization [facility] Address [address] [place] [address] Phone Care Team Providers Care Cheese Tester Name Role Phone Aileen Cary DO Primary [...]
--- OUTSIDE RECORDS SUMMARY | 2025-05-23 13:03 | XMS_ITS | Encounter Summary ---
Author Organization [employer] Address 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 Gender Identity Not on file Sexual Orientation Not on file documented as of this encounter Plan of Treatment Not on file documented as of this encounter Visit Diagnoses Not on filedocumented in this encounter Additional Health Concerns Infection Onset Date Last Indicated Resolved Time R/O COVID-19 10/19/2021 10/19/2021 10/19/2021 7:32 PM CASINO ATTENDANT R/O COVID-19 03/30/2022 03/30/2022 03/30/2022 4:47 PM CDT documented as of this encounter Care Teams Director Of Assessing Relationship Specialty Start Date End Date Aileen Cary DO [address] [place] [phone] PCP - General Pediatrics 07/04/21 documented as of this encounter
--- OUTSIDE RECORDS SUMMARY | 2025-05-23 13:03 | XMS_ITS | Clinical Summary ---
Author Organization [facility] Gonzalez [facility] Address [address] [place] [address] Phone Care Team Providers Care Meteorology Instructor Name Role Phone Aileen Cary DO Primary Care Provid er Allergies Active Allergy Reactions Criticality Noted Date Comments Adhesive Hives High 04/22/2022 dermabond and tape Aspirin Anaphylaxis High 07/04/2021 Banana Angioedema High 07/04/2021 Doxycycline Hcl Anaphylaxis High 10/19/2021 Naproxen Anaphylaxis High 07/04/2021 [place] Anaphylaxis High 07/04/2021 Pineapple Angioedema High 07/04/2021 [...] on file 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
--- OUTSIDE RECORDS SUMMARY | 2025-05-23 13:03 | XMS_ITS | Encounter Summary ---
Author Organization [employer] Address 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 Gender Identity Not on file Sexual Orientation Not on file documented as of this encounter Plan of Treatment Not on file documented as of this encounter Visit Diagnoses Diagnosis Other specified malposition or malpresentation of fetus, delivered- Primary documented in this encounter Additional Health Concerns Infection Onset Date Last Indicated Resolved Time R/O COVID-19 10/19/2021 10/19/2021 10/19/2021 7:32 PM 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
--- OUTSIDE RECORDS SUMMARY | 2025-05-23 13:03 | XMS_ITS | Encounter Summary ---
Author Organization [employer] Address [address] [place] [address] Care Team Providers Care Newsroom Intern Name Role Phone Aileen Cary DO Primary Care Provid er Encounter Details Date Type Department Care Team (Late st Contact Info) Description 09/21/2000 Outpatient Historical HIS [facility] DEPT OF FAMILY MEDICINE Anayeli Muller MD [address] [place] [address] Social History Tobacco Use Types Packs/Day Years Used Date Smoking Tobacco: Never Assessed Comments Unknown Sex and Gender Information Value Date Recorded Sex Assigned at Not on file Legal Sex Female 2:36 AM CONCRETE CARPENTER Gender Identity Not on file Sexual Orientation Not on file documented as of this encounter Plan of Treatment Not on file documented as of this encounter Visit Diagnoses Not on filedocumented in this encounter Additional Health Concerns Infection Onset Date Last Indicated Resolved Time R/O COVID-19 10/19/2021 10/19/2021 10/19/2021 7:32 PM CONCRETE CARPENTER R/O COVID-19 03/30/2022 03/30/2022 03/30/2022 4:47 PM CDT documented as of this encounter Care Teams Newsroom Intern Relationship Specialty Start Date End Date Aileen Cary DO [address] [place] [phone] PCP - General Pediatrics 07/04/21 documented as of this encounter
--- OUTSIDE RECORDS SUMMARY | 2025-05-23 13:03 | XMS_ITS | Encounter Summary ---
Author Organization [employer] Address [address] [place] [address] Care Team Providers Care Assistant Department Manager Name Role Phone Aileen Cary DO Primary Care Provid er Encounter Details Date Type Department Care Team (Latest Contact Info) Description 02/15/2000 Inpatient Historical HIS PATIENT IN A BED Merry Lopez MD [address] [place] [phone] Forceps or vacuum extractor delivery without mention of indication, delivered, with or without mention of antepartum condition (Primary Dx) Social History Tobacco Use Types Packs/Day Years Used Date Smoking Tobacco: Never Assessed Comments Unknown Sex and Gender Information Value Date Recorded Sex Assigned at Not on file Legal Sex Female 2:36 AM BED SETTER Gender Identity Not on file Sexual Orientation [...] R/O COVID-19 10/19/2021 10/19/2021 10/19/2021 7:32 PM BED SETTER R/O COVID-19 03/30/2022 03/30/2022 03/30/2022 4:47 PM CDT documented as of this encounter Care Teams Assistant Department Manager Relationship Specialty Start Date End Date Aileen Cary DO [address] [place] [phone] PCP - General Pediatrics 07/04/21 documented as of this encounter
--- OUTSIDE RECORDS SUMMARY | 2025-05-23 13:03 | XMS_ITS | Encounter Summary ---
Author Organization [employer] [facility] Address 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 Gender Identity Not on file Sexual Orientation Not on file documented as of this encounter Plan of Treatment Not on file documented as of this encounter Visit Diagnoses Diagnosis Other current maternal conditions classifiable elsewhere, antepartum- Primary documented in this encounter Additional Health Concerns Infection Onset Date Last Indicated Resolved Time R/O COVID-19 10/19/2021 10/19/2021 10/19/2021 7:32 PM WEATHER STRIPPER R/O COVID-19 03/30/2022 03/30/2022 03/30/2022 4:47 PM CDT documented as of this encounter Care Teams Aircraft Captain Relationship Specialty Start Date End Date Aileen Cary DO [facility] [place] [address] PCP - General Pediatrics 07/04/21 documented as of this encounter
--- NOTE | 2025-05-23 13:08 | CT_ITS ---
WS: [id number] Exam: CT angio chest PE protcl [id number] Date/Time of Exam: 05/23/2025 1:10 PM Reason For Exam: sob DLP: 427.[address] scans at [facility] use at least one of these dose optimization techniques: automated exposure control; mA and/or kV adjustment per patient size (includes targeted exams where dose is matched to clinical indication); or iterative reconstruction. Comparison 02/25/2025. No sign of acute PE. The thoracic aorta is normal in caliber. The central pulmonary arteries are clear. The airway is patent. No pleural or pericardial effusion. No lymphadenopathy in the chest. The lungs are clear. Several small areas of plaque atelectasis noted. No pleural effusion. No chest wall abn ormalities. No destructive bone lesions. S-shaped scoliosis of the thoracic and upper lumbar spine. CT/CT angio chest PE protcl [id number] IMPRESSION: 1. No sign of acute PE. 2. No other significant finding in the chest.
--- NOTE | 2025-05-23 13:09 | W.ED.SOB ---
HPI - SOB/Dyspnea General: Chief Complaint: Shortness of Breath/Dyspnea Stated Complaint: SOB/CP Time Seen by Provider: 05/23/25 13:04 Source: patient Mode of arrival: ambulatory Limitations: no limitations History of Present Illness: HPI Narrative: 44-year-old female has a history of COPD states she has been having increasing cough wheezing over the last few days. She had recently been on antibiotics and steroids and has had minimal improvement she states. She states she been having sharp chest pains when she coughs as well. Denies any fevers. She is not requiring any oxygen here. Associated symptoms: Reports chest pain; Deny abdominal pain, fever(s), nausea or vomiting Related Data Home Medications ?Medication ?Instructions ?Recorded ?Confirmed omeprazole 40 mg capsule,delayed 40 mg PO BID 03/04/22 05/16/25 release epinephrine 0.3 mg/0.3 mL 0.3 mg IM Q4H PRN Allergic Reaction 07/14/22 05/16/25 injection, auto-injector (EpiPen 2-Alexy) atorvastatin 80 mg tablet 80 mg PO DAILY 10/11/24 05/16/25 cyclobenzaprine 10 mg tablet 10 mg PO TID PRN Muscle Spasm 10/11/24 05/16/25 ezetimibe 10 mg tablet 10 mg PO ONCE 10/11/24 05/16/25 fluconazole 150 mg tablet 150 mg PO .one a week 10/11/24 05/16/25 albuterol sulfate 90 mcg/actuation 1 inh inhalation QID 11/01/24 05/16/25 aerosol inhaler fluticasone 250 mcg-salmeterol 50 1 ea inhalation BID 02/25/25 05/16/25 mcg/dose blistr powdr for inhalation (Advair Diskus) Previous Rx's ?Medication ?Instructions ?Recorded levetiracetam 500 mg tablet 500 mg PO BID #60 tabs 01/02/25 hydroxyzine HCl 50 mg tablet 50 mg PO QID PRN anxiety/insomnia 02/06/25 #120 tabs ipratropium 0.5 mg-albuterol 3 mg 3 ml inhalation Q4H PRN shortness 04/25/25 (2.5 mg base)/3 mL nebulization of breath or wheezing #90 mL soln buspirone 10 mg tablet 10 mg PO BID #60 tabs 05/12/25 prazosin 5 mg capsule 5 mg PO QPM #30 caps 05/12/25 propranolol 20 mg tablet 20 mg PO BID PRN anxiety #60 tabs 05/12/25 quetiapine 100 mg tablet 200 mg (2 x 100 mg) PO .HS #60 tabs 05/12/25 venlafaxine 150 mg tablet,extended 300 mg (2 x 150 mg) PO DAILY #60 05/12/25 release 24 hr tabs carbamazepine 400 mg 400 mg PO BID 90 days #180 tabs 05/16/25 tablet,extended release,12 hr levetiracetam 750 mg tablet 750 mg PO BID #180 tabs 05/16/25 Allergies Allergy/AdvReac Type Severity Reaction Status Date / Time Latex, Natural Rubber Allergy Severe ALGY-Difficulty Verified 05/23/25 13:02 Breathing lamotrigine Allergy Intermediate ALGY-Rash Verified 05/23/25 13:02 2-octyl cyanoacrylate Allergy Unknown Unknown Verified 05/23/25 13:02 Alpha-Gal Allergy ADR-Abdominal Verified 05/23/25 13:02 (Ywbfdhyba-Myvsf-1,3-Gala Pain aspirin Allergy ALGY-Difficulty Verified 05/23/25 13:02 Breathing banana Allergy Unknown Verified 05/23/25 13:02 doxycycline Allergy Unknown Verified 05/23/25 13:02 NSAIDS (Non-Steroidal Allergy ALGY-Difficulty Verified 05/23/25 13:02 Anti-Inflamma Breathing orange Allergy Unknown Verified 05/23/25 13:02 pineapple Allergy Unknown Verified 05/23/25 13:02 trazodone Allergy Unknown Verified 05/23/25 13:02 watermelon Allergy Unknown Verified 05/23/25 13:02 topiramate AdvReac Severe Rash & Verified 05/23/25 13:02 itching. dermabond Allergy ALGY-Bliste Uncoded 05/23/25 13:02 r Review of Systems Const: Denies: fever(s), chills, body aches or change in appetite ENMT: Denies: throat pain or dental pain Card: Reports: chest pain Resp: Reports: dyspnea, non-productive cough and wheezing GI: Denies: abdominal pain, nausea, vomiting or diarrhea Musc: Denies: neck pain or back pain Skin/Breast: Denies: rash Neuro: Denies: headache(s) PFSH ED PFSH: Medical History Psychiatric care History of umbilical hernia Anxiety Asthma CVA (cerebral vascular accident) Migraine Surgical History History of surgery on arm History of resection of small bowel History of laparotomy History of mandibular surgery Status post cholecystectomy Status post rotator cuff repair Status post hernia repair Family History Mother Headache Depression Father Stroke Hypertension Brother Depression Stroke Sister Depression Anxiety Colon cancer Social History Smoking and tobacco/nicotine status: never used tobacco/nicotine Alcohol intake: never Substance/Drug Use: never Physical Exam Const: COMMON NORMALS: patient oriented x3 HENMT: COMMON NORMALS: normocephalic and atraumatic HEAD & SCALP: normocephalic and atraumatic Eye: COMMON NORMALS: conjunctivae normal CONJUNCTIVA: Yes conjunctivae normal Neck/C-Spine: COMMON NORMALS: full ROM and supple Chest: COMMONS NORMALS: normal inspection of the chest Resp: COMMON NORMALS: No retractions and No use of accessory muscles AUSCULTATION: wheezes Cardio: COMMON NORMALS: regular rate, regular rhythm and No murmurs present (Cardio) RATE: regular rate RHYTHM: regular rhythm Extremity: COMMON NORMALS: normal to inspection and full ROM Neuro: COMMON NORMALS: patient oriented x3, moves all extremities and no focal motor deficits Psych: COMMON NORMALS: mental status grossly normal, Normal thought process present and cooperative THOUGHT PROCESS: Normal thought process present Skin: COMMON NORMALS: no rashes or lesions noted and no wounds GENERAL SKIN EXAM: no rashes or lesions noted Course Vital Signs: Vital signs: Vital Signs Temperature 97.4 F L 05/23/25 12:53 Pulse Rate 89 05/23/25 15:22 Respiratory Rate 18 05/23/25 13:32 Blood Pressure 123/92 05/23/25 15:22 Pulse Oximetry 95 05/23/25 15:22 Oxygen Delivery Me thod Room Air 05/23/25 15:09 Oxygen Flow Rate 2 05/23/25 14:30 MDM - SOB/Dyspnea Medical Decision Making Patient presents here with asthma exacerbation CTA showed no pneumonia or pulmonary embolism she is improved after breathing treatments she stable for discharge she has follow-up with her PCP tomorrow she is return if worsening. Medical Records I reviewed the patient's medical records. Lab Data I reviewed the patient's lab results. 05/23/25 13:23 05/23/25 13:23 Labs/Radiology: Radiology Impressions Chest X-Ray 05/23/25 12:53 IMPRESSION: 1. Negative chest. No change. Chest CTA 05/23/25 13:08 IMPRESSION: 1. No sign of acute PE. 2. No other significant finding in the chest. Laboratory Results WBC 9.14 10^3/uL (3.29-11.43) 05/23/25 13:23 RBC 4.96 10^6/uL (3.85-5.65) 05/23/25 13:23 Hgb 13.40 g/dL (11.27-16.99) 05/23/25 13:23 Hct 40.7 % (36-47) 05/23/25 13:23 MCV 82.1 fl (85-98) L 05/23/25 13:23 MCH 27.0 pg (27-33) 05/23/25 13:23 MCHC 32.9 g/dL (30-55) 05/23/25 13:23 RDW 13.9 % (12.1-15.1) 05/23/25 13:23 Plt Count 270 10^3/cmm (157-399) 05/23/25 13:23 MPV 8.1 fL (7.4-10.4) 05/23/25 13:23 Neut % (Auto) 57.9 % 05/23/25 13:23 Lymph % (Auto) 27.2 % 05/23/25 13:23 [place] % (Auto) 7.1 % 05/23/25 13:23 Eos % (Auto) 6.6 % 05/23/25 13:23 Baso % (Auto) 0.9 % 05/23/25 13:23 Neut # (Auto) 5.29 10^3/uL (1.8-7.7) 05/23/25 13:23 Lymph # (Auto) 2.5 10^3/uL (0.8-4.8) 05/23/25 13:23 [place] # (Auto) 0.7 10^3/uL (0.2-0.9) 05/23/25 13:23 Eos # (Auto) 0.6 10^3/uL (0.0-0.8) 05/23/25 13:23 Baso # (Auto) 0.1 10^3/uL (0.0-0.1) 05/23/25 13:23 Nucleated RBC % (auto) 0 % 05/23/25 13:23 Nucleated RBCs # 0.0 /100WBC 05/23/25 13:23 Sodium 141 mmol/L (136-145) 05/23/25 13:23 Potassium 4.3 mmol/L (3.5-5.1) 05/23/25 13:23 Chloride 103 mmol/L (98-107) 05/23/25 13:23 Carbon Dioxide 24 mmol/L (22-29) 05/23/25 13:23 Anion Gap 18.3 (5-19) 05/23/25 13:23 BUN 10 mg/dL (6-20) 05/23/25 13:23 Creatinine 0.6 mg/dL (0.5-0.9) 05/23/25 13:23 GFR Calculation 107.6 mL/min (90-130) 05/23/25 13:23 Glucose 90 mg/dL (65-115) 05/23/25 13:23 Calculated Osmolality 291 mOsm/kg (285-295) 05/23/25 13:23 Calcium 9.6 mg/dL (8.5-10.5) 05/23/25 13:23 Total Bilirubin 0.2 mg/dL (0.15-1.2) 05/23/25 13:23 AST 20 U/L (0-32) 05/23/25 13:23 ALT 18 U/L (0-33) 05/23/25 13:23 Alkaline Phosphatase 112 U/L (35-105) H 05/23/25 13:23 Troponin T Baseline 7 ng/L (0-10) 05/23/25 13:23 NT-Pro-B Natriuret Pep < 36 pg/mL (0-125) 05/23/25 13:23 Total Protein 7.1 g/dL (6.6-8.7) 05/23/25 13:23 Albumin 4.5 g/dL (3.5-5.2) 05/23/25 13:23 Globulin 2.6 g/dL (1.3-4.6) 05/23/25 13:23 All radiology interpretation(s) finalized by discharge EKG Data EKG 1: I personally reviewed and interpreted this EKG as follows: EKG Interpretation Date: 05/23/25 EKG interpretation time: 12:57 Interpretation: nsr hr [address] elevation qrs 97 qtc 399 Discharge Plan Discharge Patient Disposition: Home Clinical Impression: Asthma with exacerbation Condition: Stable Prescriptions: No Action omeprazole 40 mg capsule,delayed release(DR/EC) 40 mg PO BID albuterol sulfate 90 mcg/actuation HFA aerosol inhaler 1 inh inhalation QID hydroxyzine HCl 50 mg tablet 50 mg PO QID PRN (Reason: anxiety/insomnia) Qty: 120 2RF buspirone 10 mg tablet 10 mg PO BID Qty: 60 11RF quetiapine 100 mg tablet 200 mg PO .HS Qty: 60 11RF venlafaxine 150 mg tablet extended release 24hr 300 mg PO DAILY Qty: 60 11RF propranolol 20 mg tablet 20 mg PO BID PRN (Reason: anxiety) Qty: 60 11RF prazosin 5 mg capsule 5 mg PO QPM Qty: 30 11RF cyclobenzaprine 10 mg tablet 10 mg PO TID PRN (Reason: Muscle Spasm) atorvastatin 80 mg tablet 80 mg PO DAILY fluconazole 150 mg tablet 150 mg PO .one a week ezetimibe 10 mg tablet 10 mg PO ONCE carbamazepine 400 mg tablet extended release 12 hr 400 mg PO BID 90 Days Qty: 180 3RF levetiracetam 750 mg tablet 750 mg PO BID Qty: 180 3RF levetiracetam 500 mg tablet 500 mg PO BID Qty: 60 4RF Rx Instructions: TAKE 1 TABLET BY MOUTH TWICE DAILY epinephrine [EpiPen 2-Alexy] 0.3 mg/0.3 mL Auto-Injector 0.3 mg IM Q4H PRN (Reason: Allergic Reaction) fluticasone propion-salmeterol [Advair Diskus] 250-50 mcg/dose blister with device 1 ea INHALATION BID ipratropium-albuterol 0.5 mg-3 mg(2.5 mg base)/3 mL solution for nebulization 3 ml inhalation Q4H PRN (Reason: shortness of breath or wheezing) Qty: 90 0RF Discharge Orders: Discharge ED (Routine); Ordered 05/23/25 Ordered By: Madina Ospina Referrals: Marcos Dumas MD [Primary Care Provider, [facility]] - 4-7 days Discharge Diet: Advance as tolerated Discharge Activity: Resume usual activity Patient Instructions: Asthma (ED) Print Language: Rw[place]an Coding Level of Care Code ED Lining Printer for Joey Castro
[2025-05-23] MEDS: iohexol 350 mg/mL 500 mL Btl (per mL) IV (13:26)
[2025-05-23 13:31] LABS: Hematocrit 40.7 % (36-47); Hemoglobin 13.40 g/dL (11.27-16.99); Mean Corpuscular HGB Conc 32.9 g/dL (30-55); Mean Corpuscular Hemoglobin 27.0 pg (27-33); Mean Corpuscular Volume 82.1 fl (85-98); Nucleated Red Blood Cells % 0 %; Platelet Count 270 10^3/cmm (157-399); Red Blood Count 4.96 10^6/uL (3.85-5.65); White Blood Count 9.14 10^3/uL (3.29-11.43)
[2025-05-23 13:32] VITALS: PULSE 78; RESP 18; O2SAT 98
[2025-05-23 13:41] VITALS: PULSE 81
[2025-05-23] MEDS: methylPREDNISolone sod succ 125 mg/2 mL INJ IVP (13:42)
[2025-05-23 13:49] LABS: Troponin(5th) Baseline 7 ng/L (0-10)
[2025-05-23 13:58] LABS: Alanine Aminotransferase 18 U/L (0-33); Albumin Level 4.5 g/dL (3.5-5.2); Alkaline Phosphatase 112 U/L (35-105); Anion Gap 18.3 (5-19); Aspartate Amino Transferase 20 U/L (0-32); Blood Urea Nitrogen 10 mg/dL (6-20); Calcium 9.6 mg/dL (8.5-10.5); Carbon Dioxide 24 mmol/L (22-29); Chloride 103 mmol/L (98-107); Creatinine Clr Calc Pharmacy 142.1850; Globulin 2.6 g/dL (1.3-4.6); Glucose 90 mg/dL (65-115); NT Pro B Type Natriuretic Pept < 36 pg/mL (0-125); Osmolality Calculated 291 mOsm/kg (285-295); Potassium 4.3 mmol/L (3.5-5.1); Sodium 141 mmol/L (136-145); Total Protein 7.1 g/dL (6.6-8.7)
[2025-05-23] MEDS: LORazepam 1 MG/0.5 ML injection IVP (14:09)
[2025-05-23 14:30] VITALS: BP 128/88; PULSE 83; O2SAT 97
--- NOTE | 2025-05-23 15:04 | ECG_ITS ---
[email or web address] Date: 2025-05-23 Pat Name: Eliana Julio Department: Room: Gender: Female Crayon Sawyer: : 1980 Requested By: Madina Ospina Order Number: [id number] Sylvia MD: Charisma Ozuna M.D. Measurements Intervals [place] Rate: 88 P: -1 DC: 200 QRS: -35 QRSD: 98 T: 41 QT: 355 QTc: 430 Interpretive Statements SINUS RHYTHM LEFT AXIS DEVIATION [QRS AXIS < -30] POSSIBLE ANTERIOR MYOCARDIAL INFARCTION , PROBABLY OLD [30 ms Q WAVE IN V3/V4, OR R < 0.2 mV IN V4] Compared to ECG 05/23/2025 12:57:58 No significant changes Electronically Signed On 05-23-2025 17:17:54 CDT by Charisma Ozuna M.D. [email or web address]
[2025-05-23 15:09] VITALS: O2SAT 94
[2025-05-23 15:22] VITALS: BP 123/92; PULSE 89; O2SAT 95
== END 2025-05-23 15:23 | disposition home or self-care (01) ==
PROVIDERS: Emergency Provider Emergency Medicine; PCP Family Medicine
DX: J45.901 Unspecified asthma with (acute) exacerbation (principal); Z86.73 Personal history of transient ischemic attack (TIA), and cerebral infarction without residual deficits
CPT/HCPCS: 71045; 71275; 80053; 83880; 84484; 85025; 93005; 94640; 96374; 96375; 99285; J2060; J2919; J7613; J9999

== ENCOUNTER 2025-06-06 08:00 | Outpatient (CLI) | payer MEDICAID, SELFPAY ==
[2025-06-06 08:29] VITALS: PULSE 86; RESP 18; O2SAT 96
== END 2025-06-06 08:01 | disposition home or self-care (01) ==
LOC: RT 08:01
PROVIDERS: PCP Family Medicine; Visit Provider Family Medicine
DX: J45.909 Unspecified asthma, uncomplicated (principal)
CPT/HCPCS: 94060; 94726; 94729; J7613

== ENCOUNTER → 2025-08-28 10:32 | Outpatient (BNVA) | payer MEDICAID, SELFPAY | PROVIDERS: PCP Family Medicine; Visit Provider Internal Medicine | DX: J44.9 Chronic obstructive pulmonary disease, unspecified (principal) | CPT/HCPCS: 85025 ==

== ENCOUNTER 2025-09-15 09:27 | Oncology outpatient (recurring) (ONCR) | payer MEDICAID, SELFPAY ==
[2025-09-15 10:05] VITALS: BP 144/88; PULSE 87; RESP 17; TEMP 36.7; O2SAT 96
[2025-09-15] MEDS: [UNRECOGNIZED DRUG - OTHER] SUBCUT (10:11)
[2025-09-15 10:46] VITALS: BP 142/97; PULSE 82; RESP 17; TEMP 36.6; O2SAT 94
== END 2025-09-15 23:59 | disposition home or self-care (01) ==
LOC: ONCMED 09:27
PROVIDERS: PCP Family Medicine; Visit Provider Internal Medicine
DX: J45.909 Unspecified asthma, uncomplicated (principal); Z79.899 Other long term (current) drug therapy
CPT/HCPCS: 96372